=== PATIENT | female | born 1990 | race Caucasian/White ===

== ENCOUNTER 2023-09-24 09:57 | Day surgery (SDC) | payer BC, SELFPAY ==
--- NOTE | 2023-09-24 | OP_ITS ---
OPERATION DATE: 09/24/2023 PREOPERATIVE DIAGNOSIS: Enlarging painful epidermal cyst posterior neck. POSTOPERATIVE DIAGNOSIS: Enlarging painful epidermal cyst posterior neck. PROCEDURE: Excisional biopsy epidermal cyst posterior neck. SURGEON: Connor Barcenas M.D. ANESTHESIA: Local with 1% lidocaine with epinephrine. ESTIMATED BLOOD LOSS: Less than 1 mL. INDICATIONS AND CONSENT: Patient is a 33-year-old female with history of enlarging epidermal cyst of the left posterior neck that has been increasing in size and has had a previous episode of infection with drainage. Indications, risks, benefits, alternatives of proceeding with excisional biopsy under local anesthesia were explained extensively to the patient, including the risks of bleeding, infection, scarring, pain, recurrence, need for further surgery. All of her questions were answered. Informed consent was obtained. PROCEDURE: Patient brought to the operating room, placed in the right lateral decubitus position. She was prepped and draped in the usual sterile fashion. The area was anesthetized with 1% lidocaine with epinephrine. It was excised in elliptical fashion down through subcutaneous tissue. Total length was approximately 1 cm. There was noted to be a ruptured epidermal cyst with chronic inflammation. No abscess. This was excised and debrided and sent off to pathology. The wound was irrigated. There was good hemostasis. Incision was then closed with 3-0 nylon mattress sutures and 4-0 nylon simple sutures. There was good hemostasis. Patient tolerated procedure well and was discharged home in good condition, is to follow up in 10 days for suture removal. She is to call sooner with any problems or questions. CC: Patient?s family physician, Dr. Morro OJEDA
[2023-09-24] MEDS: LIDOCAINE HCL 1%-EPINEPHRINE 1:100,000 10 ML MDV 3 ML INJ (11:51)
[2023-09-24 11:52] VITALS: BP 121/63; PULSE 69; PULSE 74; RESP 17; RESP 18; O2SAT 98; O2SAT 99
[2023-09-24 11:53] VITALS: BP 101/83
--- OUTSIDE RECORDS SUMMARY | 2023-10-08 01:54 | XMS_ITS | CCD ---
Author Name Unknown Address [address] [place] [address] Organization [facility] Care Team Providers Care Pull Worker Name Role Phone Claudia Johnson Unavailable Melanie Hooker Primary Care Physician GINNY, DR ASHLEY Wilkes Consulting Unavailable GINNY, DR ASHLEY Wilkes Attending Unavailable WEST, DR ASHLEY Wilkes Admitting Unavailable KING, DR NAVARRO Primary Care Unavailable WEST, DR ASHLEY Wilkes Attending Unavailable WEST, DR ASHLEY Wilkes Admitting Unavailable WEST, DR ASHLEY Wilkes Consulting Unavailable KING, DR NAVARRO Primary Care Unavailable YOAV, DR DILL Admitting Unavailable KING, DR NAVARRO Primary Care Unavailable YOAV, DR DILL Consulting Unavailable YOAV, DR DILL Attending Unavailable BECKMAN, NALLELY Consulting Unavailable KING, DR NAVARRO Primary Care Unavailable YOAV, DR DILL Attending Unavailable YOAV, DR DILL Admitting Unavailable YOAV, DR DILL Consulting Unavailable AGUBOSIM, CHARITY Consulting Unavailable ROBERTO SUTHERLAND Consulting Unavailable YOAV, DR DILL Admitting Unavailable KING, DR NAVARRO Primary Care Unavailable YOAV, DR DILL Consulting Unavailable YOAV, DR DILL Attending Unavailable YOAV, DR DILL Consulting Unavailable KING, DR NAVARRO Primary Care Unavailable YOAV, DR DILL Attending Unavailable YOAV, DR DILL Admitting Unavailable KERRY MELVIN Attending Unavailable KERRY MELVIN Admitting Unavailable KING, DR NAVARRO Primary Care Unavailable GINNY, DR ASHLEY Wilkes Consulting Unavailable KERRY MELVIN Consulting Unavailable NILArline Reed Attending Unavailable NILLArline Attending Unavailable NILLARLINE Attending Unavailable NILLARLINE Attending Unavailable Allergies Allergy Classification Reported Allergen(s) Allergy Type Date of Onset Reaction(s) Facility (1 source) No Known Medication Allergies; Translations: [No Known Medication Allergies] Propensity to adverse reactions (disorder) [facility] Repository Medications Current Medications Medication Drug Class(es) Dates Sig (Normalized) Sig (Original) sulfamethoxazole 800 mg / trimethoprim 160 mg oral tablet (1 source) Dihydrofolate Reductase Inhibitor Antibacterial, Sulfonamide Antimicrobial Start: 09-02-2023 End: 09-07-2023 Bactrim D.S. 800 mg-160 mg Tab 1 tab(s), Oral, BID for 5 day(s), 10 tab(s), Refill(s) 0, [employer] #72, 172.7, cm, 09/02/23 14:11:00 EST, Height/Length Dosing, 62.7, kg, 09/02/23 14:11:00 EST, Weight Dosing Start Date: 09/02/23 Stop Date: 09/07/23 Status: Ordered Problems Active Problems Problem Classification Problem Date Documented Da te Episodic/Chronic Anxiety disorders (3 sources) Anxiety; Translations: [Anxiety disorder, unspecified] Onset: 05-28-2022 07-12-2022 Chronic Other skin disorders (2 sources) Acne vulgaris 07-12-2022 Episodic Other skin disorders (1 source) Epidermoid cyst; Translations: [Epidermal cyst] Onset: 09-02-2023 Episodic Other skin disorders (1 source) Epidermoid cyst of skin 07-27-2022 Episodic Other skin disorders (1 source) Epidermoid cyst of skin of neck 07-27-2022 Episodic Residual codes; unclassified (2 sources) Insomnia 07-12-2022 Episodic Substance-related disorders (1 source) Nicotine dependence, other tobacco product, uncomplicated; Translations: [NICOTINE DEPEND OTH TOB PROD UNCOMP] Onset: 05-28-2022 Chronic Unclassified (2 sources) Body mass index 20-24 - normal 07-23-2022 Unclassified (1 source) CONTACT W/AND (SUSP) EXPOS COVID-19; Translations: [CONTACT W/AND (SUSP) EXPOS COVID-19] Onset: 05-25-2022 Past or Other Problems Problem Classification Problem Date Documented Date Episodic/Chronic Cancer of cervix (5 sources) 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); Translations: [HGSIL ON CYTOLOGIC SMEAR OF CERVIX] Onset: 05-23-2022 Episodic Immunizations and screening for infectious disease (2 sources) Contact with and (suspected) exposure to other viral communicable diseases; Translations: [Encounter for screening for human papillomavirus (HPV)] Onset: 10-26-2021 Resolved: 10-26-2021 Episodic Other aftercare (5 sources) Encounter for follow-up examination after completed treatment for conditions other than malignant neoplasm; Translations: [ENC F/U EX AFTR CMPL TX NOT MAL HERMES] Onset: 05-29-2022 Episodic Other screening for suspected conditions (not mental disorders or infectious disease) (4 sources) Encounter for screening for malignant neoplasm of cervix; Translations: [ENC SCREENING MALIG NEOPLASM CERV] Onset: 04-19-2022 Episodic Ovarian cyst (1 source) Unspecified ovarian cyst, left side; Translations: [UNSPECIFIED OVARIAN CYST LEFT SIDE] Onset: 05-28-2022 Episodic Skin and subcutaneous tissue infections (4 sources) Cellulitis, unspecified; Translations: [CELLULITIS UNSPECIFIED] Onset: 05-29-2022 Episodic Viral infection (1 source) COVID-19 Onset: 10-26-2021 Resolved: 10-26-2021 Results Test Name Value Interpretation Reference Range Facil ity Pathology Noteon 10-01-2023 Pathology Note [id number]. 00TIFF Normal [facility] Operative Reporton Operative Report [id number]#[id number] Normal [facility] SURGICAL PATH REPORTon 09-26 SURGICAL PATH REPORT [facility] Department of Pathology [address] [place] [id number] Name: BJORN BOATENG : 1990 [facility] [id number] Number: [facility] Admit 33 years Attending ARLINE ARRINGTON Age: Provider: Ordering ARLINE ARRINGTON Provider: Consulti Surgical Pathology Report ng: ACCESSION: COLLECTED DATE/TIME: RECEIVED DATE/TIME: PATHOLOGIST: [id number] 09/24/2023 12:01 EST 09/25/2023 13:27 EST TERRIE KOEHLER, [facility] Final Diagnosis Report for [facility] [place] EPIDERMAL CYST, POSTERIOR NECK; EXCISION: - BENIGN SKIN WITH CHRONIC INFLAMMATION, GIANT CELLS AND FOCAL CHANGES SUGGESTIVE OF INFLAMED EPIDERMAL INCLUSION CYST. MATI FALCON PATHOLOGIST (Electronic Signature) Date Verified 09/26/2023 LL Clinical Data PRE-OP DIAGNOSIS: Not specified POST-OP DIAGNOSIS: Epidermal cyst PROCEDURES: Excision of epidermal cyst SPECIMEN: Epidermal cyst, posterior neck VISIT #[id number] / Surgical outpatient Gross Description Labeled epidermal cyst, posterior neck. Received in formalin are two ovoid segments of castro pink soft tissue. These measure in aggregate 1.4 x 0.8 x 0.5 cm. The larger segment is bisected transversely. The specimen is entirely submitted in one cassette. MP/tahir 09/25/2023 Tissue pathology report for: [facility], [address] [place], [place] [id number]; ____ Print 09/26/2023 16:04 EST Number: Date/Time: [facility] Department of Pathology [address] [place], [place] [id number] Name: BJORN BOATENG : 1990 [facility] [id number] Number: Gender Female [facility] : n: Admit 33 years Attending ARLINE ARRINGTON Age: Provider: Ordering ARLINE ARRINGTON Provider: Consulti Surgical Pathology Report ng: ACCESSION: COLLECTED DATE/TIME: RECEIVED DATE/TIME: PATHOLOGIST: [id number] 09/24/2023 12:01 EST 09/25/2023 13:27 EST TERRIE KOEHLER, MATI Gross Description PATHOLOGY SERVICES PROVIDED BY [employer], [employer] (CLIA #[id number]) in cooperation with [facility] at [address] [place] [address] (CLIA #[id number]) Microscopic Diagnosis The final diagnosis is based on a microscopic exam of insurance claim representative sections. Codes CPT CODE: 11286 ____ Print 09/26/2023 16:04 EST Number: Date/Time: Normal [facility] Comment on above: Performed By: #### [id number] #### [facility] Laboratory Services [address] [id number] Earth [employer] Teacher: Mike Taylor MD Consent for Procedure/Surger yon 09-03-2023 Consent for Procedure/Surgery [id number] [facility] Insurance Correspondenceon 1 11-03-2022 Insurance Correspondence [id number] [facility] General Surgery Office/Clini c Noteon 09-02-2023 General Surgery Office/Clinic Note Chief Complaint re-evaluate cysts HPI Staff Presents to re-evaluate left posterior neck and upper back cysts x 2. Last evaluation 07/2022; excision planned but not scheduled. Reports back cysts are unchanged. Over the past 3-4 weeks, neck cyst has been increasing in soreness and size. Denies drainage. Not on ATB. History of Present Illness 33 yo female presents for reevaluation of posterior neck cyst; patient seen 1 year ago for posterior neck and upper back cysts; she declined to schedule surgery at that time; no reports 1 month h/o enlargement of posterior neck cyst with pain, no drainage; denies injury to area, no antibiotic therapy. Review of Systems PHQ Score Initial Depression Screen Score: 0 SCORE ROS - Provider Constitutional: no fever, no sweats, no weight loss. Eyes: no glasses, no blurred vision, no visual loss. ENMT: no dentures, no hoarseness, no swallowing difficulties, no hearing loss, no ear infection(s), no nose bleeds. Cardiovascular: normal blood pressure, no chest pain, regular heartbeat, no heart murmur. Respiratory: no shortness of breath, no cough, no asthma, no wheezing. Gastrointestinal: no nausea, no vomiting, no diarrhea, no constipation, no blood in stool, no change in bowel habits, no abdominal pain, no hepatitis. Genitourinary: no kidney stones, no urine infection, no dysuria. Musculoskeletal: no pain, no weakness. Skin: no changing moles, no rash, yes skin lumps. Neurologic: no seizures, no epilepsy, no headache. Psychiatric: no emotional or psychiatric problem. Heme/Lymph: no bleeding problems, no anemia, no blood clots, no transfusions. Allergy/Immunologic: no swollen lymph nodes/glands, no IV drug abuse. Other: Additional ROS info: Except as noted in the above Review of Systems and in the History of Present Illness, all other systems have been reviewed and are negative or noncontributory. Physical Exam Vitals & Measurements HR: 76(Peripheral) RR: 16 BP: 110/76 HT: 68 in HT: 172.7 cm WT: 62.7 kg WT: 137.94 lb BMI: 21.02 HEENT: normal conjunctiva, sclera clear, no scleral icterus, EOM intact, PERRLA, oral mucosa moist without lesions. Neck: trachea midline, no mass, symmetric, no thyromegaly or nodules, no adenopathy Respiratory: lungs CTA, respirations non labored. Cardiovascular: regular rate and rhythm, no murmur, no pedal edema or varicositie Musculoskeletal: normal gait, digits and nails without infection, nodes, cyanosis, clubbing. Skin: no rashes, no lesions, no ulcers, posterior neck with 2 cm epidermal cyst, sore, no fluctuance or drainage, no open areas, no erythema; small, less than 1 cm cysts upper back, nontender. atric/Neuro: oriented to time, place, person, judgement normal, affect appropriate for age, insight intact, no focal deficits. Tests: , review of old records completed , Discussed surgical options, risks, and possible complications with patient. Assessment/Plan 1. Epidermal cyst of neck (L72.0: Epidermal cyst) inflamed, treat with course of antibiotics; plan excisional biopsy under local anesthesia at [facility], informed consent obtained. Ordered: sulfamethoxazole-trimethoprim, 1 tab(s), Oral, BID for 5 day(s), 10 tab(s), Refill(s) 0, [employer] #72, 172.7, cm, 09/02/23 14:11:00 EST, Height/Length Dosing, 62.7, kg, 09/02/23 14:11:00 EST, Weight Dosing Follow-up No qualifying data available Problem List/Past Medical History Ongoing Acne vulgaris Anxiety BMI 21.0-21.9, adult Epidermal cyst Epidermal cyst of neck Insomnia Historical No qualifying data Procedure/Surgical History LEEP, LEEP, Removal of ovarian cyst. Medications Bactrim D.S. 800 mg-160 mg Tab, 1 tab(s), Oral, BID Allergies No Known Allergies No Known Medication Allergies Social History Alcohol - Denies Alcohol Use, 07/23/2022 Substance Abuse - Denies Substance Abuse, 07/23/2022 Tobacco Former smoker, quit more than 30 days ago Tobacco Use:. Smokeless tobacco user within last 30 days Smokeless Tobacco Use:. Cigarettes, Vaping, 0.5 per day. Started age 16.0 Years. Yes, 09/02/2023 Family History Family history is negative Immunizations Vaccine Date Status Comments influenza virus vaccine, inactivated - Not Given Patient Refuses Normal [facility] Comment on above: Result Comment: Elec tronically Signed By: MURPHY KOEHLER, Arline Craft\ravi\Date and Time Signed: 09/02/23 19:23 EST CBC AUTO DIFFon 05-29-2022 BASO # 0.0 103/ul Normal 0.0-0.1 [facility] Comment on above: Performed By: #### C BC #### [facility] [address] [address] [address] Ellie Hagan Basophils/100 WBC (Bld) 0.5 % Normal 0.2-2.0 [facility] Comment on above: Performed By: #### C BC #### [facility] [address] [place], [place] [address] Dr. Ellie Hagan EO # 0.1 103/ul Normal 0.0-0.[address] [facility] Comment on above: Performed By: #### C BC #### [facility] [address] [place] [address] Dr. Ellie Hagan Eosinophils/100 WBC (Bld) 1.7 % Normal 0.9-7.0 [facility] Comment on above: Performed By: #### C BC #### [facility] [address] [place] [address] Dr. Ellie Hagan Erythrocyte distribution wid th (RBC) [Ratio] 11.8 % Normal 11.0-15.0 [facility] Comment on above: Performed By: #### C BC #### [facility] [address] [place] [address] Dr. Ellie Hagan Hematocrit (Bld) [Volume fraction] 36.8 % Normal 3 6.0-48.0 [facility] Comment on above: Performed By: #### C BC #### [facility] [address] [place] [address] Dr. Ellie Hagan Hemoglobin (Bld) [Mass/Vol] 12.8 g/dL Normal 12.0-16. 0 [facility] Comment on above: Performed By: #### C BC #### [facility] [address] [place] [address] Dr. Ellie Hagan IG # 0.10 10e3/ul Critically high 0.00-0.03 [facility] Comment on above: Performed By: #### C BC #### [facility] [address] [place] [address] Dr. Ellie Hagan IG % 1.3 % Critically high 0.0-0.5 [facility] Comment on above: Performed By: #### C BC #### [facility] [address] [place] [address] Dr. Ellie Hagan LYMPH # 2.1 103/ul Normal 1.2-3.[address] [facility] Comment on above: Performed By: #### C BC #### [facility] [address] [place] [address] Dr. Ellie Hagan Lymphocytes/100 WBC (Bld) 28.5 % Normal 20.5-60.0 [facility] Comment on above: Performed By: #### C BC #### [facility] [address] [place] [address] Dr. Ellie Hagan MANUAL DIFF REQ NO Normal [facility] Comment on above: Performed By: #### C BC #### [facility] [address] [place] [address] Dr. Ellie Hagan MCH (RBC) [Entitic mass] 30.8 pg Normal 26.7-34.0 [facility] Comment on above: Performed By: #### C BC #### [facility] [address] [place] [address] Dr. Ellie Hagan MCHC (RBC) [Mass/Vol] 34.8 g/dL Normal 29.9-35.2 [facility] Comment on above: Performed By: #### C BC #### [facility] [address] [place] [address] Dr. Ellie Hagan MCV (RBC) [Entitic vol] 88.5 fL Normal 81.0-99.0 [facility] Comment on above: Performed By: #### C BC #### [facility] [address] [place] [address] Dr. Ellie Hagan MONO # 0.7 103/ul Normal 0.3-0.8 [facility] Comment on above: Performed By: #### C BC #### [facility] [address] [place] [address] Dr. Ellie Hagan Monocytes/100 WBC (Bld) 9.6 % Normal 1.7-12.0 [facility] Comment on above: Performed By: #### C BC #### [facility] [address] [place] [address] Dr. Ellie Hagan NEUT # 4.4 103/ul Normal 1.4-6.[address] [facility] Comment on above: Performed By: #### C BC #### [facility] [address] [place] [address] Dr. Ellie Hagan Neutrophils/100 WBC (Bld) 58.4 % Normal 43.0-75.0 [facility] Comment on above: Performed By: #### C BC #### [facility] [address] [place] [address] Dr. Ellie Hagan Platelet mean volume (Bld) [ Entitic vol] 10.1 fL Normal 9.5-13.5 [facility] pital Comment on above: Performed By: #### C BC #### [facility] [address] [place] [address] Dr. Ellie Hagan PLT 232 103/ul Normal 150-[address] [facility] Comment on above: Performed By: #### C BC #### [facility] [address] [place] [address] Dr. Ellie Hagan RBC 4.16 106/ul Critically low 4.20-5.40 [facility] Comment on above: Performed By: #### C BC #### [facility] [address] [place] [address] Dr. Ellie Hagan WBC 7.5 103/ul Normal 4.0-11.[address] [facility] Comment on above: Performed By: #### C BC #### [facility] [address] [place] [address] Dr. Ellie Hagan US EXT NON VASC LIMITED LTon 05-29-2022 US EXT NON VASC LIMITED LT EXAMINATION: US EXT NON VASC LIMITED LT HISTORY: Cellulitis COMPARISON: No relevant comparison available. FINDINGS: Ultrasound of the left dorsal wrist in the area of redness demonstrates normal skin, subcutaneous fat and muscle. Some vessels are observed which demonstrate normal compressibility. IMPRESSION: Normal ultrasound. No focal abnormality Electronically authenticated by: ASHLEY GROSS Date: 2022-05-29 16:13 Normal [facility] l HCG-BETA SUBUNIT QUANTon hCG,Beta Subunit,Qnt,Serum <1 Normal [facility] Comment on above: Result Comment: Fema le (Non-) 0 - 5 (Postmenopausal) 0 - 8 . Female () Weeks of Gestation 3 6 - 71 4 10 - 750 5 285 - 7876 6 556 - 82353 7 [phone] 8 [phone] -[phone] 9 [phone] -[phone] 10 08010 -865870 12 18042 -[id number] 14 06466 - 96592 15 71890 - 64836 16 5708 - 55796 17 5668 - 47255 18 0802 - 24882 [place] ECLIA methodology Performed By: #### H CGSUB #### [facility] [address] [place] [address] Dr. Ellie Hagan CBC AUTO DIFFon 05-21-2022 BASO # 0.0 103/ul Normal 0.0-0.1 [facility] Comment on above: Performed By: #### C BC #### [facility] [address] [place] [address] Dr. Ellie Hagan Basophils/100 WBC (Bld) 0.7 % Normal 0.2-2.0 [facility] Comment on above: Performed By: #### C BC #### [facility] [address] [place] [address] Dr. Ellie Hagan EO # 0.1 103/ul Normal 0.0-0.7 [facility] Comment on above: Performed By: #### C BC #### [facility] [address] [place] [address] Dr. Elile Hagan Eosinophils/100 WBC (Bld) 1.4 % Normal 0.9-7.0 [facility] Comment on above: Performed By: #### C BC #### [facility] [address] [place] [address] Dr. Ellie Hagan Erythrocyte distribution wid th (RBC) [Ratio] 11.9 % Normal 11.0-15.0 [facility] Comment on above: Performed By: #### C BC #### [facility] [address] [place] [address] Dr. Ellie Hagan Hematocrit (Bld) [Volume fraction] 36.3 % Normal 3 6.0-48.0 [facility] Comment on above: Performed By: #### C BC #### [facility] [address] [place] [address] Dr. Ellie Hagan Hemoglobin (Bld) [Mass/Vol] 12.7 g/dL Normal 12.0-16. 0 [facility] Comment on above: Performed By: #### C BC #### [facility] [address] [place] [address] Dr. Ellie Hagan IG # 0.07 10e3/ul Critically high 0.00-0.03 [facility] Comment on above: Performed By: #### C BC #### [facility] [address] [address] [address] Ellie Hagan IG % 1.3 % Critically high 0.0-0.5 [facility] Comment on above: Performed By: #### C BC #### [facility] [address] [place] [address] Dr. Ellie Hagan LYMPH # 1.8 103/ul Normal 1.2-3.8 [facility] Comment on above: Performed By: #### C BC #### [facility] [address] [place] [address] Dr. Ellie Hagan Lymphocytes/100 WBC (Bld) 32.0 % Normal 20.5-60.0 [facility] Comment on above: Performed By: #### C BC #### [facility] [address] [place] [address] Dr. Ellie Hagan MANUAL DIFF REQ NO Normal [facility] Comment on above: Performed By: #### C BC #### [facility] [address] [place] [address] Dr. Ellie Hagan MCH (RBC) [Entitic mass] 31.3 pg Normal 26.7-34.0 [facility] Comment on above: Performed By: #### C BC #### [facility] [address] [place] [address] Dr. Ellie Hagan MCHC (RBC) [Mass/Vol] 35.0 g/dL Normal 29.9-35.2 [facility] Comment on above: Performed By: #### C BC #### [facility] [address] [place] [address] Dr. Ellie Hagan MCV (RBC) [Entitic vol] 89.4 fL Normal 81.0-99.0 [facility] Comment on above: Performed By: #### C BC #### [facility] [address] [place] [address] Dr. Ellie Hagan MONO # 0.5 103/ul Normal 0.3-0.8 [facility] Comment on above: Performed By: #### C BC #### [facility] [address] [place] [address] Dr. Ellie Hagan Monocytes/100 WBC (Bld) 8.9 % Normal 1.7-12.0 [facility] Comment on above: Performed By: #### C BC #### [facility] [address] [place] [address] Dr. Ellie Hagan NEUT # 3.1 103/ul Normal 1.4-6.[address] [facility] Comment on above: Performed By: #### C BC #### [facility] [address] [place] [address] Dr. Ellie Hagan Neutrophils/100 WBC (Bld) 55.7 % Normal 43.0-75.0 [facility] Comment on above: Performed By: #### C BC #### [facility] [address] [place] [address] Dr. Ellie Hagan Platelet mean volume (Bld) [ Entitic vol] 10.4 fL Normal 9.5-13.5 [facility] Comment on above: Performed By: #### C BC #### [facility] [address] [place] [address] Dr. Ellie Hagan PLT 212 103/ul Normal 150-[address] [facility] Comment on above: Performed By: #### C BC #### [facility] [address] [place] [address] Dr. Ellie Hagan RBC 4.06 106/ul Critically low 4.20-5.40 [facility] Comment on above: Performed By: #### C BC #### [facility] [facility] [address] [place] [address] Dr. Ellie Hagan WBC 5.6 103/ul Normal 4.0-11.[address] [facility] Comment on above: Performed By: #### C BC #### [facility] [address] [place] [address] Dr. Ellie Hagan [facility] SARS-CoV-2 (COVID-19) RNA SARA+probe Ql (Unsp spec) Not detected Normal NOT DETECTED The [facility] Comment on above: Result Comment: This test is not yet approved or cleared by the [place] FDA. When there are no FDA-approved or cleared tests available, and other criteria are met, FDA can make tests available under an emergency access mechanism called an Emergency Use Authorization (EUA). The EUA for this test is supported by the Refining Supervisor of Health and Human Service's (HHS's) declaration that circumstances exist to justify the emergency use of in vitro diagnostics for the detection and/or diagnosis of the virus that causes COVID-19. This EUA will remain in effect (meaning this test can be used) for the duration of the COVID-19 declaration justifying emergency of IVDs, unless it is terminated or revoked by FDA (after which the test may no longer be used). When diagnostic testing is negative, the possibility of a false negative should be considered in the context of a patient's recent exposures and the presence of clinical signs and symptoms consistent with SARS-CoV-2. Performed By: #### C VDTBH #### [facility] [address] [place] [address] Dr. Ellie Hagan PAP ACOG PANEL 2: 30 to 65on 04-25-2022 . . Normal [facility] Comment on above: Result Comment: Perf ormed at: WB Performed By: #### [id number] #### [facility] [address] [place], [place] [id number] Dr. Ellie Hagan Age Gdln ACOG Testing 30-65 Normal [facility] Comment on above: Performed By: #### [id number] #### [facility] [address] [place], [place] [id number] Dr. Ellie Hagan DIAGNOSIS: Comment Abnormal [facility] Comment on above: Result Comment: EPIT HELIAL CELL ABNORMALITY. HIGH-GRADE SQUAMOUS INTRAEPITHELIAL LESION (HSIL). Performed at: WB Performed By: #### [id number] #### [facility] [address] [place] [address] Dr. Ellie Hagan Electronically signed by: Comment Normal [facility] Comment on above: Result Comment: Gayla Hernandez MD, Pathologist Performed at: WB Performed By: #### [id number] #### [facility] [address] [place] [address] Dr. Ellie Hagan HPV Aptima Positive Abnormal Negative [facility] Comment on above: Result Comment: This nucleic acid amplification test detects fourteen high-risk HPV types (16,18,31,33,35,39,45,51,52,56,58,59,66,68) without differentiation. Performed at: =G Performed By: #### [id number] #### [facility] [address] [place] [address] Dr. Ellie Hagan Methodology: Comment Normal [facility] Comment on above: Result Comment: This liquid based ThinPrep(R) pap test was screened with the use of an image guided system. Performed at: WB Performed By: #### [id number] #### [facility] [address] [place] [address] Dr. Ellie Hagan Note: Comment Normal [facility] Comment on above: Result Comment: The Pap smear is a screening test designed to aid in the detection of premalignant and malignant conditions of the uterine cervix. It is not a diagnostic procedure and should not be used as the sole means of detecting cervical cancer. Both false-positive and false-negative reports do occur. . Performed at: WB Performed By: #### [id number] #### [facility] [address] [place] [address] Dr. Ellie Hagan Pathologist Provided ICD10 Comment Normal [facility] Comment on above: Result Comment: [id number]. [id number] Performed at: WB Performed By: #### [id number] #### [facility] [address] [place] [address] Dr. Ellie Hagan Performed by: Comment Normal [facility] Comment on above: Result Comment: Fortunato Patel, Head Of Merchandise Buying (ASCP) Performed at: WB Performed By: #### [id number] #### [facility] [address] [address] [address] Ellie Hagan Recommendation: Comment Abnormal [facility] Comment on above: Result Comment: Sugg est colposcopy and biopsy if indicated. Performed at: WB Performed By: #### [id number] #### [facility] [address] [place], [place] [address] Dr. Ellie Hagan Specimen adequacy: Comment Normal The [facility] Comment on above: Result Comment: Sati sfactory for evaluation. Endocervical and/or squamous metaplastic cells (endocervical component) are present. Performed at: WB Performed By: #### [id number] #### [facility] [address] [address] [address] Ellie Hagan [employer] Quick Testingon 2021 Result Positive [facility] [employer] Other Vital Signs Date Time Vital Sign Value Performing Clinician Facility 09-02-2023 14:04-0500 Blood Pressure Location [employer] [facility] 09-02-2023 14:04-0500 Diastolic blood pressure 76 mm[Hg] Arline NILL [facility] 09-02-2023 14:04-0500 Heart rate 76 /min Arline NILL [facility] 09-02-2023 14:04-0500 Respiratory rate 16 /min Arline NILL [facility] 09-02-2023 14:04-0500 Systolic blood pressure 110 mm[Hg] Arline NILL [facility] 07-23-2022 15:23-0400 Blood Pressure Location Arline QingKeL [facility] 07-23-2022 15:23-0400 Diastolic blood pressure 76 mm[Hg] [facility] 07-23-2022 15:23-0400 Heart rate 68 /min Arline NILL [facility] 07-23-2022 15:23-0400 Respiratory rate 16 /min Arline NILL [facility] 07-23-2022 15:23-0400 Systolic blood pressure 116 mm[Hg] Arline NILL [facility] 10-26-2021 14:30-0500 Body height 172.72 cm Claudia Ginty Other [employer] Other 10-26-2021 14:30-0500 Body mass index (BMI) [Ratio] 20.52 kg/m2 Claudia Ginty Other [employer] Other 10-26-2021 14:30-0500 Body temperature 99 [degF] Claudia Ginty Other [employer] Other 10-26-2021 14:30-0500 Body weight 61.24 kg Claudia Ginty Other [employer] Other 10-26-2021 14:30-0500 Respiratory rate 18 /min Claudia Ginty Other [employer] Other 10-26-2021 14:30-0500 SaO2% (BldA) [Mass fraction] 99 % Claudia Ginty Other [employer] Other Encounters Encounter Date Encounter Type Care Provider Facility Start: 10-07-2023 ambulatory Arline R NILL Facility : [facility] Start: 09-25-2023 End: 09-26-2023 ambulatory ARLINE R NILL Facility:[facility] Start: 09-24-2023 End: 09-25-2023 ambulatory ARLINE R NILL Facility:[facility] Start: 09-02-2023 End: 09-03-2023 [facility] Start: 09-02-2023 End: 09-02-2023 Patient encounter procedure Arline SANTIAGOL [facility] [place] Start: 09-01-2023 ambulatory Arline ARRINGTON Facility: [facility] Start: 12-06-[address] ASHLEY GROSS Facilit y:[facility] Start: 07-23-2022 End: 07-23-2022 Patient encounter procedure Arline SANTIAGODerek [facility] Start: 05-29-2022 End: 05-30-2022 ambulatory KERRY MELVIN Facility:[facility] Start: 05-25-2022 Encounter for preprocedural laboratory examination DR ANIYAH JACKSON [facility] Start: 05-23-2022 End: 05-23-[address] MELANIE HOOKER Facility:[facility] Start: 05-21-2022 End: 05-22-[address] ANIYAH JACKSON Facility:[facility] Start: 05-21-2022 End: 05-22-2022 Encounter for preprocedural laboratory examination DR ANIYAH JACKSON Facility:[facility] Start: 04-19-2022 End: 04-19-[address] ANIYAH JACKSON Facility:[facility] Start: 03-21-2022 End: 06-30-[address] ASHLEY GROSS Facility:[facility] Start: 10-26-2021 End: 10-26-2021 ambulatory Claudia Johnson Other [employer] Other Start: 10-26-2021 Office outpatient vi sit 15 minutes Claudia Johnson [facility] Procedures Date Procedure Procedure Detail Performing Clinician Loop electrosurgical excision procedure Arline ARRINGTON Removal of ovarian cyst Liam bañuelos NILL Immunizations Immunization Date Immunization Notes Care Provider Fa cility NEGATED: Highlighted row has not occurred!09-02-2023 influenza virus vaccine, unspecified formulation Arline SANTIAGODerek [facility] [place] Payers Date Payer Category Payer Unknown [id number] 2.16.84 [id number] 1989 Unknown [id number] 2.16.84 [id number] 1989 Unknown [id number] 2.16.84 [id number] 1989 Unknown [id number] 2.16.84 [id number] 1989 Unknown [id number] 2.16.84 [id number] 1989 Unknown [id number] 2.16.84 [id number] 1989 Unknown [id number] 2.16.84 [id number] 1989 Unknown [id number] 2.16.8 [id number] 1989 Unknown [id number] 2.16.8 [id number] 1960 [facility] [id number] 1960 Self-pay Social History Date Type Detail Facility Sex Assigned At [facility] [employer] Other Start: 07-23-2022 End: 09-02-2023 Tobacco smoking status Ex-smoker (finding) [facility] Tobacco smoking status Smokeless tobacco user within last 30 days [facility] [place] Functional Status Date Assessment Result Facility 09-02-2023 Functional Status N/A [facility] [place] 07-23-2022 Functional Status N/A [facility] Clinical Note 05-23-2022 Note Date & Type Note Facility 05-23-2022 Note OPERATIVE NOTE OPERATION DATE: 05/23/2022 PROCEDURE: LEEP Procedure. PREOPERATIVE DIAGNOSIS: Dysplasia. POSTOPERATIVE DIAGNOSIS: Dysplasia. ANESTHESIA: General. SURGEON: Aniyah Jackson D.O. LUMBER TRIMMER: None. SPECIMEN: Ectocervical tissue. FINDINGS: Cervical dysplasia at the 6, 8 and 2 o'clock positions. PROCEDURE: Patient was taken back to the Operating Room where she was given general anesthesia without difficulty. She was then placed in the dorsal lithotomy position. She was then prepped and draped in the normal sterile fashion. A weighted speculum was placed into the patient's vagina. The anterior lip of the cervix was identified and grasped with a single-tooth tenaculum. The patient's cervix was then copiously irrigated using vinegar. Then, a Lugol Solution was also placed onto the patient's cervix which demonstrated increased uptake of the Lugol solution at the 6 o'clock, 8 o'clock and 2 o'clock positions. At that time, the LEEP portion of the procedure was performed, including the 6 o'clock, 8 o'clock and 2 o'clock positions. The ectocervix was sent out to Pathology. The patient's cervix was then coagulated using suction cautery. Excellent hemostasis was assured. Monsel Solution was then placed onto the patient's cervix to help maintain adequate hemostasis. All instruments were removed from the patient's vagina. The anterior lip of the cervix demonstrated excellent hemostasis. The patient tolerated the procedure well. Sponge, lap, and needle counts were correct x 2. The patient was taken to Recovery Room in stable condition. [facility] Evaluation note 10-26-2021 Note Date & Type Note Facility 10-26-2021 Evaluation note Encounter Date Diagnosis Assessment Notes Oct, Contact with and (suspected) exposure to other viral communicable diseases (ICD-10 - Z20.828) Oct, COVID-19 (ICD-10 - U07.1) Rapid COVID test performed in office today. Advised patient that test was positive.Instru cted patient to isolate per CDC guidelines for 10 days from symptom onset. May return to work/activities outside home after isolation period as long as symptoms are improving and has been afebrile for 24 hours without use of antipyretic. Advised patient that health dept. will be in contact as results are reported to them. Advised patient that treatment of COVID is with viral supportive care, OTC cold medications as directed, Tylenol/Motrin as needed for body aches/fever. Increase fluids and rest. Encouraged use of cool mist humidifier. Follow-up with PCP to advise of positive result and further management. Immediate eval for SOB, difficulty, chest pain, fevers that do not break with antipyretic or any other concerning symptoms as reviewed on patient education handout. Patient verbalizes understanding and is agreeable to treatment plan. Patient left in stable condition Oct, Other Additional time spent conducting pre-visit phone call, screening for symptoms, instructions on social distancing, application and removal of PPE, and cleaning of examination room, equipment and supplies was preformed. Patient education given for testing methodology and results. Patient care instructions given in writting by [facility] Care At Home document [employer] Other Evaluation + Plan note Note Date & Type Note Facility Evaluation + Plan note No data available for this section [facility] Discharge instructions Note Date & Type Note Facility Hospital Discharge instructions No data available for this section [facility] Progress note Note Date & Type Note Facility Progress note No data available for this section [facility] [place] Summary Purpose Family History No Family History Records Found No data available for this section No Family History Records FoundNo Family History Records Found Advance Directives No Advanced Directives Records FoundNo Advanced Directives Records FoundNo Advanced Directives Records Found Additional Source Comments REASON FOR VISIT (unrecogniz ed section and content) #19 BLACK TRAVERSE, +AT HOME , COUGH, EAR PAIN, SORE THROAT, BACK PAIN, H/A, FEVER Patient Care team informatio n (unrecognized section and content) Personnel Name: Melanie Hooker MD Address: Address: [address] [place] [address] Personnel Name: Melanie Hooker MD Address: Address: [address] [place] [address]- INFORMATION SOURCE (unrecogn ized section and content) DATE CREATED AUTHOR 12/07/2022 [facility] DATE CREATED AUTHOR AUTHOR'S ORGANIZ ATION 10/03/2023 [facility] DATE CREATED AUTHOR AUTHOR'S ORGANALLYN ATION 10/04/[address] [facility] FOR RECORDS PERTAINING TO PATIENTS WHO ARE OR HAVE BEEN ENROLLED IN A CHEMICAL DEPENDENCY/SUBSTANCEABUSE PROGRAM, SOME INFORMATION MAY BE OMITTED. This clinical summary was aggregated from multiple sources. Caution should be exercised in using it in the provision of clinical care. This summary normalizes information from multiple sources, and as a consequence, information in this document may materially change the coding, format and clinical context of patient data. In addition, data may be omitted in some cases. CLINICAL DECISIONS SHOULD BE BASED ON THE PRIMARY CLINICAL RECORDS. [facility]. provides no warranty or guarantee of the accuracy or completeness of information in this document.
== END 2023-09-24 12:21 | disposition home or self-care (01) ==
PROVIDERS: PCP Family Medicine; Visit Provider Surgery
PROC: (CPT 11421; principal; 2023-09-24 10:35)
DX: L72.0 Epidermal cyst (principal); F41.9 Anxiety disorder, unspecified; Z87.891 Personal history of nicotine dependence
CPT/HCPCS: 11421; 88304

== ENCOUNTER 2023-09-25 08:56 | Outpatient (OUT) | payer SELFPAY | END 2023-09-25 08:57 | disposition home or self-care (01) | LOC: PST 08:56 | PROVIDERS: Visit Provider Surgery | DX: Z01.818 Encounter for other preprocedural examination (principal); L72.0 Epidermal cyst ==

== ENCOUNTER 2025-07-06 09:50 | Emergency (ER) | payer BC, SELFPAY ==
[2025-07-06 09:58] VITALS: BP 111/67; PULSE 97; TEMP 36.9; O2SAT 100; BMI 21.9
--- OUTSIDE RECORDS SUMMARY | 2025-07-06 10:03 | XMS_ITS | Clinical Summary ---
Author Organization [facility] Address [address] [place] [address] Care Team Providers Care Director Internal Audit Name Role Phone Unavailable Primary Care Provider Unavailabl e Social History Tobacco Use Types Packs/Day Years Used Date Smoking Tobacco: Never Assessed Comments Unknown Sex and Gender Information Value Date Recorded Sex Assigned at Not on file Legal Sex Female 11:47 PM EDT Gender Identity Not on file Sexual Orientation Not on file Plan of Treatment Not on file
--- NOTE | 2025-07-06 10:09 | CT_ITS ---
The [address] [address] Patient Name: BJORN BOATENG MRN: [id number] date: 1990 Sex: F Assigned Patient Location: ER Current Patient Location: ER Accession/Order Number: [id number] Exam Date: 07/06/2025 10:36 Report Date: 07/06/2025 11:20 At the request of: ARIC MCNEILL MD Procedure: CT abdomen pelvis w con CT ABDOMEN AND PELVIS WITH CONTRAST COMPARISON: None CLINICAL DATA: Right lower quadrant pain since last night. Spiral images were obtained through the abdomen and pelvis following 100 mL of Omnipaque 300. This CT exam was performed using one or more following dose reduction techniques: Automated exposure control, adjustment of the mA and/or kV according to patient size, or use of iterative reconstruction technique. Limited cuts through the lung bases show no contributory findings. No calcified gallstones are identified. There are tiny left hepatic hypodensities which may be cysts. The spleen, pancreas and adrenal glands show no acute findings. There are symmetric renal nephrograms, without hydronephrosis. Suspected tiny renal cysts are seen on the right. The abdominal aorta is normal caliber. There are no enlarged lymph nodes. No ascites is seen. There is a small umbilical hernia containing fat. The small bowel bowel loops are not distended. There is air and stool in the ascending and transverse colon. The descending colon is under distended with apparent wall thickening. Slight thoracolumbar levoscoliotic curvature is noted. Images through the pelvis show no dilated small bowel. There is stool at the cecum. Most of the sigmoid colon is decompressed. There is no diverticular disease. The appendix measures approximately 7 mm in diameter and there is no surrounding inflammation to suggest appendicitis. There is a multiloculated cystic or adjacent cysts within the left pelvis that extends to the posterior cul-de-sac. The entire area measures approximately 10 cm in size. This probably originates from the left ovary. A small thick-walled cystic structure at the right ovary may be an involuting corpus luteum of menstruation. The urinary bladder is not well-distended however no obvious abnormalities are seen. There is no ascites. CT/CT abdomen pelvis w con IMPRESSION: PROBABLE TINY HEPATIC AND RIGHT RENAL CYSTS. NO BOWEL OR URINARY TRACT OBSTRUCTION. NO SUSPECTED APPENDICITIS. MULTILOCULATED LEFT ADNEXAL CYST(S). ULTRASOUND FOLLOW-UP COULD BE CONSIDERED, WARRANTED. NO OTHER ACUTE FINDINGS. Impression dictated by: Jeny Montalvo M.D. 07/06/2025 11:20 AM Dictation Location: [facility]2sms Electronically authenticated by: [id number] Date: 07/06/2025 11:20
--- NOTE | 2025-07-06 10:11 | ED_ITS ---
HPI HPI - General Adult General Chief complaint: Abdominal Pain Stated complaint: ABDOMINAL PAIN Time Seen by Provider: 07/06/25 10:04 Source: patient Mode of arrival: walk-in Limitations: no limitations History of Present Illness HPI narrative: 35-year-old female presents to the emergency department for abdominal pain. She is complaining pain in the mid abdomen which goes into her right lower quadrant and she is worried about her appendix. It started at 1:00 this morning and it was more severe earlier and it is not as bad now. No trauma or fever. She had a bowel movement yesterday and she has not had any diarrhea. Related Data Previous Rx's ?Medication ?Instructions ?Recorded ibuprofen 800 mg tablet 800 mg PO Q8H PRN pain #20 t abs 07/06/25 Allergies Allergy/AdvReac Type Severity Reaction Status Date / Time No Known Drug Allergies Allergy Verified 07/06/25 09:58 Opioid HPI Opioid Management Most Recent Opioid Data: Last Pain Scale 5 Today, 09:58 Review of Systems ROS Narrative A ten point review of systems is negative except as noted above. PFSH PFS Medical History (Updated 07/06/25 @ 11:31 by Frank Washington MD) Epidermal cyst ?L72.0 - Epidermal cyst (ICD-10) Anxiety ?F41.9 - Anxiety disorder, unspecified (ICD-10) Surgical History (Updated 09/24/23 @ 10:08 by Ana María Jimenez) History of loop electrical excision procedure (LEEP) ?Z98.890 - Other specified postprocedural states (ICD-10) History of ovarian cystectomy ?Z98.890 - Other specified postprocedural states (ICD-10) ?Z87.42 - Personal history of other diseases of the female genital tract (ICD-10) Social History (Updated 09/24/23 @ 10:16 by Ana María Jimenez) Within the past year, how often did you have a drink containing alcohol: monthly or less Smoking status: Former smoker Do you use any of these nicotine containing products: vaping products Non-prescribed substance use: denies use 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 General: The patient appears in no apparent distress. Patient is resting comfortably on cart. Skin: Warm, dry, no pallor noted. There is no rash noted. Head: Normocephalic, atraumatic Eye: Normal conjunctiva, no drainage Ears, Nose, Mouth, and Throat: oral mucosa is moist. Nares patent. Cardiovascular: Regular Rate and Rhythm Respiratory: Patient is in no distress, no accessory muscle use, lungs are clear to auscultation, no wheezing, rales or rhonchi Back: non-tender GI: Soft and nondistended. Tenderness present in the right lower quadrant Musculoskeletal: The patient has no evidence of calf tenderness, no pitting edema, symmetrical pulses noted bilaterally Neurological: A&O, normal speech Psychiatric: Cooperative Constitutional Vital Signs, click to edit/add: Last Vital Signs Temp 98.5 F 07/06/25 09:58 Pulse 97 H 07/06/25 09:58 Resp 18 07/06/25 09:58 BP 111/67 07/06/25 09:58 Pulse Ox 100 07/06/25 09:58 O2 Del Method Room Air 07/06/25 09:58 Course Vital Signs Vital signs: Vital Signs Temperature 98.5 F 07/06/25 09:58 Pulse Rate 97 H 07/06/25 09:58 Respiratory Rate 18 07/06/25 09:58 Blood Pressure 111/67 07/06/25 09:58 Pulse Oximetry 100 07/06/25 09:58 Oxygen Delivery Method Room Air 07/06/25 09:58 Temperature 98.5 F 07/06/25 09:58 Pulse Rate 97 H 07/06/25 09:58 Respiratory Rate 18 07/06/25 09:58 Blood Pressure 111/67 07/06/25 09:58 Pulse Oximetry 100 07/06/25 09:58 Oxygen Delivery Method Room Air 07/06/25 09:58 Medical Decision Making MDM Narrative Medical decision making narrative: There is no evidence of appendicitis. She has a large complex cyst on the left ovary, 10 cm in size. 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 Jackson. Treatment diagnosis and follow-up were discussed with the patient. Differential Diagnosis Differential Diagnosis: Appendicitis, ovarian cyst, UTI, Lab Data Lab results reviewed: Yes I reviewed the patient's lab results Labs: Lab Results 07/06/25 07/06/25 Range/Units 10:00 10:15 WBC 11.5 H (4.0-11.0) 10^3/uL RBC 4.38 (4.20-5.40) 10^6/uL Hgb 13.7 (12.0-16.0) g/dL Hct 38.7 (36.0-48.0) % MCV 88.4 (81.0-99.0) fL MCH 31.3 (26.7-34.0) pg MCHC 35.4 H (29.9-35.2) g/dL RDW 11.7 (11.0-15.0) % Plt Count 220 (150-450) 10^3/uL MPV 10.5 (9.5-13.5) fL Neut % (Auto) 81.6 H (43.0-75.0) % Lymph % (Auto) 9.4 L (20.5-60.0) % Centre % (Auto) 7.7 (1.7-12.0) % Eos % (Auto) 0.3 L (0.9-7.0) % Baso % (Auto) 0.3 (0.2-2.0) % Neut # (Auto) 9.4 H (1.4-6.5) 10^3/uL Lymph # (Auto) 1.1 L (1.2-3.8) 10^3/uL Centre # (Auto) 0.9 H (0.3-0.8) 10^3/uL Eos # (Auto) 0.0 (0.0-0.7) 10^3/uL Baso # (Auto) 0.0 (0.0-0.1) 10^3/uL Abs Immat Gran (auto) 0.08 H (0.00-0.03) 10^3/uL Imm/Tot Granulo (auto) 0.7 H (0.0-0.5) % Sodium 138 (136-145) mmol/L Potassium 3.5 (3.5-5.1) mmol/L Chloride 104 (98-107) mmol/L Carbon Dioxide 27.4 (21.0-32.0) mmol/L Anion Gap 10.1 BUN 11.0 (7.0-18.0) mg/dL Creatinine 0.61 (0.55-1.02) mg/dL Est GFR ( Amer) >60 (>=60 mL/min/1.73m^2) Est GFR (Non-Af Amer) >60 (>=60 mL/min/1.73m^2) BUN/Creatinine Ratio 18.0 Glucose 98 (74-106) mg/dL Calcium 8.9 (8.5-10.1) mg/dL Serum HCG, Qual Negative (NEGATIVE) Urine Color Yellow (YELLOW) Urine Clarity Clear (CLEAR) Urine pH 7.0 (5.0-9.0) Ur Specific [place] 1.020 (1.005-1.025) Urine Protein Negative (NEG/TRACE) mg/dL Urine Glucose (UA) Negative (NEGATIVE) mg/dL Urine Ketones Negative (NEGATIVE) mg/dL Urine Occult Blood Negative (NEGATIVE) Urine Nitrite Negative (NEGATIVE) Urine Bilirubin Negative (NEGATIVE) Urine Urobilinogen 0.2 (0.2-1.0) EU/dL Ur Leukocyte Esterase Negative (NEGATIVE) Urine RBC 0-2 (0-2) #/HPF Urine WBC 2-5 A (NONE SEEN) #/HPF Ur Squamous Epith Cells Rare (NONE/RARE) #/LPF Urine Crystals None seen (None Seen) #/HPF Urine Bacteria Trace A (NONE SEEN) #/HPF Urine Casts None seen (NONE SEEN) #/LPF Urine Mucus Small A (NONE SEEN) Ur Culture Indicated? No Imaging Data CT scan - abdomen: Radiologist's impression: ITS Impressions Abdomen/Pelvis CT 07/06/25 10:09 IMPRESSION: PROBABLE TINY HEPATIC AND RIGHT RENAL CYSTS. NO BOWEL OR URINARY TRACT OBSTRUCTION. NO SUSPECTED APPENDICITIS. MULTILOCULATED LEFT ADNEXAL CYST(S). ULTRASOUND FOLLOW-UP COULD BE CONSIDERED, WARRANTED. NO OTHER ACUTE FINDINGS. Impression dictated by: Jeny Montalvo M.D. 07/06/2025 11:20 AM [facility]ict[facility] Electronically authenticated by: [id number] Y Date: 07/06/2025 11:20 Discharge Plan Discharge Chief Complaint: Abdominal Pain Clinical Impression: Ovarian cyst Patient Disposition: Home, Self-Care Time of Disposition Decision: 11:31 Condition: Good Mode of Transportation: Private Vehicle Prescriptions / Home Meds: New ibuprofen 800 mg tablet 800 mg PO Q8H PRN (Reason: pain) Qty: 20 0RF Print Language: Turkish Instructions: Ovarian Cyst (ED) Referrals: Yobany Hooker MD [Primary Care Provider, Family Practice] - 1 week
--- OUTSIDE RECORDS SUMMARY | 2025-07-06 10:12 | XMS_ITS | CCD ---
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 Name Role Phone Claudia Johnson Unavailable Melanie Hooker Primary Care Physician GINNY, DR ASHLYE Wilkes Consulting Unavailable GINNY, DR ASHLEY Wilkes Attending Unavailable GINNY, DR ASHLEY Wilkes Admitting Unavailable KING, DR NAVARRO Primary Care Unavailable WEST, DR ASHLEY Wilkes Attending Unavailable WEST, DR ASHLEY Wilkes Admitting Unavailable GINNY, DR ASHLEY Wilkes Consulting Unavailable KING, DR [...] Wilkes Consulting Unavailable KERRY MELVIN Consulting Unavailable ARLINE ARRINGTON Attending Unavailable NILLARLINE Attending Unavailable NILL, Arline Craft Attending Unavailable NILL, Arline Craft Attending Unavailable NILLArline Attending Unavailable Allergies Allergy Classification Reported Allergen(s) Allergy Type Date of Onset Reaction(s) Facility (1 source) No Known Medication Allergies; Translations: [No Known Medication Allergies] Propensity to adverse reactions (disorder) [facility] Repository Medications Current Medications Medication Drug Class(es) Dates Sig (Normalized) Sig (Original) sulfamethoxazole 800 mg / trimethoprim 160 mg oral tablet (1 source) Dihydrofolate Reductase Inhibitor Antibacterial, Sulfonamide Antimicrobial Start: 09-02-2023 End: 09-07-2023 Bactrim D.S. 800 mg-160 mg Tab 1 tab(s), Oral, BID for 5 day(s), 10 tab(s), Refill(s) 0, [employer] #72, 172.7, cm, 09/02/23 14:11:00 EST, Height/Length Dosing, 62.7, kg, 09/02/23 14:11:00 EST, Weight Dosing Start Date: 09/02/23 Stop Date: 09/07/23 Status: Ordered Problems Active Problems Problem Classification Problem Date Documented Da te Episodic/Chronic Anxiety disorders (4 sources) Anxiety; Translations: [Anxiety disorder, unspecified] Onset: 05-28-2022 07-12-2022 Chronic Other skin disorders (3 sources) Acne vulgaris 07-12-2022 Episodic Other skin disorders (2 sources) Epidermoid cyst; Translations: [Epidermal cyst] Onset: 09-02-2023 Episodic Other skin disorders (2 sources) Epidermoid cyst of skin 07-27-2022 Episodic Other skin disorders (2 sources) Epidermoid cyst of skin of neck 07-27-2022 Episodic Residual codes; unclassified (3 sources) Insomnia 07-12-2022 Episodic Substance-related disorders (1 source) Nicotine dependence, other tobacco product, uncomplicated; Translations: [NICOTINE DEPEND OTH TOB PROD UNCOMP] Onset: 05-28-2022 Chronic Unclassified (3 sources) Body mass index 20-24 - normal [...] Results Test Name Value Interpretation Reference Range Facility Ambulatory Visit Summaryon 1 12-08-2022 Ambulatory Visit Summary BJORN BOATENG :1990 Visit Date:10/07/2023 Ambulatory Visit Instructions Your Diagnosis Epidermal cyst of neck Your Care Team Attending Physician Kang ARRINGTON MD, Arline Craft Primary Care Physician Kang Hooker MD, Melanie Procedures Performed Excision of cyst (09/24/2023), LEEP, LEEP, Removal of ovarian cyst. Allergies No Known Allergies No Known Medication Allergies Problems Ongoing - Any problem that you are currently receiving treatment for. Acne vulgaris Anxiety BMI 21.0-21.9, adult Epidermal cyst Epidermal cyst of neck Insomnia Patient Survey You may receive a survey via text or e-mail asking about your office visit. Please share your experience with us by completing your survey. We appreciate your feedback and thank you for choosing us for your care. [facility] Ambulatory Visit Summary BJORN BOATENG :1990 Visit Date:10/07/2023 Ambulatory Visit Instructions Your Care Team Attending Physician Kang ARRINGTON MD, Arline Craft Primary Care Physician Kang Hooker MD, Melanie Procedures Performed Excision of cyst (09/24/2023), LEEP, LEEP, Removal of ovarian cyst. Allergies No Known Allergies No Known Medication Allergies Problems Ongoing - Any problem that you are currently receiving treatment for. Acne vulgaris Anxiety BMI 21.0-21.9, adult Epidermal cyst Epidermal cyst of neck Insomnia Patient Survey You may receive a survey via text or e-mail asking about your office visit. Please share your experience with us by completing your survey. We appreciate your feedback and thank you for choosing us for your care. Normal [facility] General Surgery Office/Clini c Noteon 10-07-2023 General Surgery Office/Clinic Note Chief Complaint post operative follow up HPI Staff 13 day post operative follow up post excisional biopsy posterior neck cyst. Denies discomfort, bleeding or drainage. Sutures intact. History of Present Illness 13 days s/p excisional biopsy inflamed epidermal cyst posterior neck; doing well, no drainage, some itching. pathology consistent with epidermal cyst. Review of Systems ROS - Provider Constitutional: no fever, no [...] weakness. Skin: no changing moles, no rash, no skin lumps. Neurologic: no seizures, no epilepsy, [...] and are negative or noncontributory. Physical Exam skin: incision healing well, no drainage, minimal erythema around sutures Assessment/Plan 1. Epidermal cyst of neck (L72.0: Epidermal cyst) doing well, sutures removed; call with problems/questions. Follow-up No qualifying data available Problem List/Past Medical History Ongoing Acne vulgaris Anxiety BMI 21.0-21.9, adult Epidermal cyst Epidermal cyst of neck Insomnia Historical No qualifying data Procedure/Surgical History Excision of cyst (09/24/2023), LEEP, LEEP, Removal of ovarian cyst. Medications No active medications Allergies No Known Allergies No Known Medication [...] inactivated - Not Given Patient Refuses Normal [facility] Comment on above: Result Comment: Elec tronically Signed By: MURPHY KOEHLER, Arline Craft\.br\Date and Time Signed: 10/07/23 15:10 EST Pathology Noteon 10-01-2023 Pathology Note [id number] #1.00TIFF Normal [facility] Operative Reporton Operative Report [id number] #1.00TIFF Normal [facility] SURGICAL PATH REPORTon 09-26 SURGICAL PATH REPORT [facility] Department of Pathology [address] [place] [id number] Name: BJORN BOATENG : 1990 [facility] [id number] Number: Gender Female [facility] : n: Admit 33 years Attending ARLINE ARRINGTON Age: Provider: Ordering ARLINE ARRINGTON Provider: Consulti Surgical Pathology Report ng: ACCESSION: COLLECTED DATE/TIME: RECEIVED DATE/TIME: PATHOLOGIST: [id number] 09/24/2023 12:01 EST 09/25/2023 13:27 EST TERRIE KOEHLER, [facility] Final Diagnosis Report for [facility] [place] [place] EPIDERMAL CYST, POSTERIOR NECK; EXCISION: - BENIGN SKIN WITH CHRONIC INFLAMMATION, GIANT CELLS AND FOCAL CHANGES SUGGESTIVE OF INFLAMED EPIDERMAL INCLUSION CYST. MATI FALCON PATHOLOGIST (Electronic Signature) Date Verified 09/26/2023 LL Clinical Data PRE-OP DIAGNOSIS: Not specified POST-OP DIAGNOSIS: Epidermal cyst PROCEDURES: Excision of epidermal cyst SPECIMEN: Epidermal cyst, posterior neck VISIT #[id number] / Surgical outpatient Gross Description Labeled epidermal cyst, posterior neck. Received in formalin are two ovoid segments of castro pink soft tissue. These measure in aggregate 1.4 x 0.8 x 0.5 cm. The larger segment is bisected transversely. The specimen is entirely submitted in one cassette. MP/tahir 09/25/2023 Tissue pathology report for: [facility], [address] [place] [address]; ____ Print 09/26/2023 16:04 EST Number: Date/Time: [facility] Department of Pathology [address] [place], [place] [id number] Name: BJORN BOATENG : 1990 [facility] [id number] Number: Gender [facility] : n: Admit 33 years Attending ARLINE ARRINGTON Age: Provider: Ordering ARLINE ARRINGTON Provider: Consulti Surgical Pathology Report ng: ACCESSION: COLLECTED DATE/TIME: RECEIVED DATE/TIME: PATHOLOGIST: [id number] 09/24/2023 12:01 EST 09/25/2023 13:27 EST TERRIE KOEHLER, MATI Gross Description PATHOLOGY SERVICES PROVIDED BY [email or web address], [facility] (CLIA #[id number]) in cooperation with [facility] at [address] [place] [address] (CLIA #[id number]) Microscopic Diagnosis The final diagnosis is based on a microscopic exam of customer field representative sections. Codes CPT CODE: 64456 ____ Print 09/26/2023 16:04 EST Number: Date/Time: Normal [facility] Comment on above: Performed By: #### [id number] #### [facility] [address] [place], [place] [id number] Benefits Sales Consultant: Mike Taylor MD Consent for Procedure/Surger yon 09-03-2023 Consent for Procedure/Surgery [id number]#1.00TIFF Normal [facility] Insurance Correspondenceon 1 11-03-2022 Insurance Correspondence [id number]# 1.00TIFF [facility] General Surgery Office/Clini c Noteon 09-02-2023 General [...] plan excisional biopsy under local anesthesia at [facility], informed consent obtained. Ordered: sulfamethoxazole-tri methoprim, 1 tab(s), Oral, BID for 5 day(s), 10 tab(s), Refill(s) 0, [employer] #72, 172.7, cm, 09/02/23 14:11:00 EST, Height/Length [...] inactivated - Not Given Patient Refuses Normal [facility] Comment on above: Result Comment: Elec tronically Signed By: MURPHY KOEHLER, Arline Joseph\Date and Time Signed: 09/02/23 19:23 EST CBC AUTO DIFFon 05-29-2022 BASO # 0.0 103/ul Normal 0.0-0.1 [facility] Comment on above: Performed By: #### C BC #### [facility] [address] [address] [address] Ellie Hagan Basophils/100 WBC (Bld) 0.5 % Normal 0.2-2.0 [facility] Comment on above: Performed By: #### C BC #### [facility] [address] [address] [address] Ellie Hagan EO # 0.1 103/ul Normal 0.0-0.7 [facility] Comment on above: Performed By: #### C BC #### [facility] [address] [place] [address] Dr. Ellie Hagan Eosinophils/100 WBC (Bld) 1.7 % Normal 0.9-7.0 [facility] Comment on above: Performed By: #### C BC #### [facility] [address] [place] [address] Dr. Ellie Hagan Erythrocyte distribution width (RBC) [Ratio] 11.8 % Normal 11.0-15.0 [facility] Comment on above: Performed By: #### C BC #### [facility] [address] [place] [address] Dr. Ellie Hagan Hematocrit (Bld) [Volume fraction] 36.8 % Normal 36.0-48.0 [facility] Comment on above: Performed By: #### C BC #### [facility] [address] [place] [address] Dr. Ellie Hagan Hemoglobin (Bld) [Mass/Vol] 12.8 g/dL Normal 12.0-16.0 [facility] Comment on above: Performed By: #### C BC #### [facility] [address] [place] [address] Dr. Ellie Hagan IG # 0.10 10e3/ul Critically high 0.00-0.03 [facility] Comment on above: Performed By: #### C BC #### [facility] [address] [place] [address] Dr. Ellie Hagan IG % 1.3 % Critically high 0.0-0.5 [facility] Comment on above: Performed By: #### C BC #### [facility] [address] [place] [address] Dr. Ellie Hagan LYMPH # 2.1 103/ul Normal 1.2-3.8 [facility] Comment on above: Performed By: #### C BC #### [facility] [address] [place] [address] Dr. Ellie Hagan Lymphocytes/100 WBC (Bld) 28.5 % Normal 20.5-60.0 [facility] Comment on above: Performed By: #### C BC #### [facility] [address] [place] [address] Dr. Ellie Hagan MANUAL DIFF REQ NO Normal [facility] Comment on above: Performed By: #### C BC #### [facility] [address] [place] [address] Dr. Ellie Hagan MCH (RBC) [Entitic mass] 30.8 pg Normal 26.7-34.0 [facility] Comment on above: Performed By: #### C BC #### [facility] [address] [place] [address] Dr. Ellie Hagan MCHC (RBC) [Mass/Vol] 34.8 g/dL Normal 29.9-35.2 [facility] Comment on above: Performed By: #### C BC #### [facility] [address] [place] [address] Dr. Ellie Hagan MCV (RBC) [Entitic vol] 88.5 fL Normal 81.0-99.0 [facility] Comment on above: Performed By: #### C BC #### [facility] [address] [place] [address] Dr. Ellie Hagan MONO # 0.7 103/ul Normal 0.3-0.8 [facility] Comment on above: Performed By: #### C BC #### [facility] [address] [place] [address] Dr. Ellie Hagan Monocytes/100 WBC (Bld) 9.6 % Normal 1.7-12.0 [facility] Comment on above: Performed By: #### C BC #### [facility] [address] [place] [address] Dr. Ellie Hagan NEUT # 4.4 103/ul Normal 1.4-6.5 [facility] Comment on above: Performed By: #### C BC #### [facility] [address] [place] [address] Dr. Ellie Hagan Neutrophils/100 WBC (Bld) 58.4 % Normal 43.0-75.0 [facility] Comment on above: Performed By: #### C BC #### [facility] [address] [place], [place] [address] Dr. Ellie Hagan Platelet mean volume (Bld) [Entitic vol] 10.1 fL Normal 9.5-13.5 [facility] Comment on above: Performed By: #### C BC #### [facility] [address] [address] [address] Ellie Hagan PLT 232 103/ul Normal 150-450 [facility] Comment on above: Performed By: #### C BC #### [facility] [address] [place], [place] [address] Dr. Ellie Hagan RBC 4.16 106/ul Critically low 4.20-5.40 [facility] Comment on above: Performed By: #### C BC #### [facility] [address] [place], [place] [address] Dr. Ellie Hagan WBC 7.5 103/ul Normal 4.0-11.0 [facility] Comment on above: Performed By: #### C BC #### [facility] [address] [place], [place] [address] Dr. Ellie Hagan US EXT NON VASC [...] ASHLEY GROSS Date: 2022-05-29 16:13 Normal [facility] HCG-BETA SUBUNIT QUANTon hCG,Beta Subunit,Qnt,Serum <1 Normal [facility] Comment on above: Result Comment: Fema le (Non-) 0 - 5 (Postmenopausal) 0 - 8 . Female () Weeks of Gestation 3 6 - 71 4 10 - 177 5 322 - 0432 6 073 - 89248 7 [phone] -[id number] 8 49387 -[phone] 9 30976 -479155 10 70100 -787458 12 60626 -035079 14 68151 - 01385 15 33094 - 65489 16 0281 - 30429 17 2062 - 23308 18 6506 - 14589 [place] ECLIA methodology Performed By: #### H CGSUB #### [facility] [address] [place] [address] Dr. Ellie Hagan CBC AUTO DIFFon 05-21-2022 BASO # 0.0 103/ul Normal 0.0-0.1 [facility] Comment on above: Performed By: #### C BC #### [facility] [address] [place] [address] Dr. Ellie Hagan Basophils/100 WBC (Bld) 0.7 % Normal 0.2-2.0 [facility] Comment on above: Performed By: #### C BC #### [facility] [address] [place] [address] Dr. Ellie Hagan EO # 0.1 103/ul Normal 0.0-0.7 [facility] Comment on above: Performed By: #### C BC #### [facility] [address] [place] [address] Dr. Ellie Hagan Eosinophils/100 WBC (Bld) 1.4 % Normal 0.9-7.0 [facility] Comment on above: Performed By: #### C BC #### [facility] [address] [place] [address] Dr. Ellie Hagan Erythrocyte distribution width (RBC) [Ratio] 11.9 % Normal 11.0-15.0 [facility] Comment on above: Performed By: #### C BC #### [facility] [address] [place] [address] Dr. Ellie Hagan Hematocrit (Bld) [Volume fraction] 36.3 % Normal 36.0-48.0 [facility] Comment on above: Performed By: #### C BC #### [facility] [address] [place] [address] Dr. Ellie Hagan Hemoglobin (Bld) [Mass/Vol] 12.7 g/dL Normal 12.0-16.0 [facility] Comment on above: Performed By: #### C BC #### [facility] [address] [address] [address] Ellie Hagan IG # 0.07 10e3/ul Critically high 0.00-0.03 [facility] Comment on above: Performed By: #### C BC #### [facility] [address] [place] [address] Dr. Ellie Hagan IG % 1.3 % Critically high 0.0-0.5 [facility] Comment on above: Performed By: #### C BC #### [facility] [address] [place] [address] Dr. Ellie Hagan LYMPH # 1.8 103/ul Normal 1.2-3.8 [facility] Comment on above: Performed By: #### C BC #### [facility] [address] [place] [address] Dr. Ellie Hagan Lymphocytes/100 WBC (Bld) 32.0 % Normal 20.5-60.0 [facility] Comment on above: Performed By: #### C BC #### [facility] [address] [place] [address] Dr. Ellie Hagan MANUAL DIFF REQ NO Normal [facility] Comment on above: Performed By: #### C BC #### [facility] [address] [place] [address] Dr. Ellie Hagan MCH (RBC) [Entitic mass] 31.3 pg Normal 26.7-34.0 [facility] Comment on above: Performed By: #### C BC #### [facility] [address] [place] [address] Dr. Ellie Hagan MCHC (RBC) [Mass/Vol] 35.0 g/dL Normal 29.9-35.2 [facility] Comment on above: Performed By: #### C BC #### [facility] [address] [place] [address] Dr. Ellie Hagan MCV (RBC) [Entitic vol] 89.4 fL Normal 81.0-99.0 [facility] Comment on above: Performed By: #### C BC #### [facility] [address] [place] [address] Dr. Ellie Hagan MONO # 0.5 103/ul Normal 0.3-0.8 [facility] Comment on above: Performed By: #### C BC #### [facility] [address] [place] [address] Dr. Ellie Hagan Monocytes/100 WBC (Bld) 8.9 % Normal 1.7-12.0 [facility] Comment on above: Performed By: #### C BC #### [facility] [address] [place] [address] Dr. Ellie Hagan NEUT # 3.1 103/ul Normal 1.4-6.5 [facility] Comment on above: Performed By: #### C BC #### [facility] [address] [place] [address] Dr. Ellie Hagan Neutrophils/100 WBC (Bld) 55.7 % Normal 43.0-75.0 [facility] Comment on above: Performed By: #### C BC #### [facility] [address] [place] [address] Dr. Ellie Hagan Platelet mean volume (Bld) [Entitic vol] 10.4 fL Normal 9.5-13.5 [facility] Comment on above: Performed By: #### C BC #### [facility] [address] [place] [address] Dr. Ellie Hagan PLT 212 103/ul Normal 150-450 [facility] Comment on above: Performed By: #### C BC #### [facility] [address] [place] [address] Dr. Ellie Hagan RBC 4.06 106/ul Critically low 4.20-5.40 [facility] Comment on above: Performed By: #### C BC #### [facility] [address] [place] [address] Dr. Ellie Hagan WBC 5.6 103/ul Normal 4.0-11.0 [facility] Comment on above: Performed By: #### C BC #### [facility] [address] [place] [address] Dr. Ellie Hagan Covid-19 PCR (CVDTBH)on SARS-CoV-2 (COVID-19) RNA SARA+probe Ql (Unsp spec) Not detected Normal NOT DETECTED [facility] Comment on above: Result Comment: This test is not yet approved or cleared by the [place] FDA. When there are no FDA-approved or cleared tests available, and other criteria are met, FDA can make tests available under an emergency access mechanism called an Emergency Use Authorization (EUA). The EUA for this test is supported by the Level Designer of Health and Human Service's (HHS's) declaration [...] consistent with SARS-CoV-2. Performed By: #### C VDTB #### [facility] [address] [place] [address] Dr. Ellie Hagan PAP ACOG PANEL 2: 30 to 65on 04-25-2022 . . Normal [facility] Comment on above: Result Comment: Perf ormed at: WB Performed By: #### [id number] #### [facility] [address] [address] [address] Ellie Hagan Age Gdln ACOG Testing -64 Normal [facility] Comment on above: Performed By: #### [id number] #### [facility] [address] [address] [address] Ellie Hagan DIAGNOSIS: Comment Abnormal [facility] Comment on above: Result Comment: EPIT HELIAL CELL ABNORMALITY. HIGH-GRADE SQUAMOUS INTRAEPITHELIAL LESION (HSIL). Performed at: WB Performed By: #### [id number] #### [facility] [address] [address] [address] Ellie Hagan Electronically signed by: Comment Normal [facility] Comment on above: Result Comment: Gayla li S Bendre, MD, Pathologist Performed at: WB Performed By: #### 4 [id number] #### [facility] [address] [place] [address] Dr. Ellie Hagan HPV Aptima Positive Abnormal Negative [facility] Comment on above: Result Comment: This nucleic acid amplification test detects fourteen high-risk HPV types (16,18,31,33,35,39,45,51,52,56,58,59,66,68) without differentiation. Performed at: =G Performed By: #### [id number] #### [facility] [address] [place] [address] Dr. Ellie Hagan Methodology: Comment Normal [facility] Comment on above: Result Comment: This liquid based ThinPrep(R) pap test was screened with the use of an image guided system. Performed at: WB Performed By: #### [id number] #### [facility] [address] [place] [address] Dr. Ellie Hagan Note: Comment Normal [facility] Comment on above: Result Comment: The Pap smear is a screening test designed to aid in the detection of premalignant and malignant conditions of the uterine cervix. It is not a diagnostic procedure and should not be used as the sole means of detecting cervical cancer. Both false-positive and false-negative reports do occur. . Performed at: WB Performed By: #### [id number] #### [facility] [address] [place] [address] Dr. Ellie Hagan Pathologist Provided ICD10 Comment Normal [facility] Comment on above: Result Comment: [id number]. [id number] Performed at: WB Performed By: #### [id number] #### [facility] [address] [place] [address] Dr. Ellie Hagan Performed by: Comment Normal [facility] Comment on above: Result Comment: Fortnuato Patel, Gristmiller (ASCP) Performed at: WB Performed By: #### [id number] #### [facility] [address] [place] [address] Dr. Ellie Hagan Recommendation: Comment Abnormal [facility] Comment on above: Result Comment: Sugg est colposcopy and biopsy if indicated. Performed at: WB Performed By: #### 4 [id number] #### [facility] [address] [address] [address] Ellie Hagan Specimen adequacy: Comment Normal [facility] Comment on above: Result Comment: Sati sfactory for evaluation. Endocervical and/or squamous metaplastic cells (endocervical component) are present. Performed at: WB Performed By: #### 4 [id number] #### [facility] [address] [address] [address] Ellie Hagan COVID Quick Testingon 2021 Result Positive [facility] Other Vital Signs Date Time Vital Sign Value Performing Clinician Facility 09-02-2023 14:04-0500 Blood Pressure Location Arline SANTIAGOL [facility] 09-02-2023 14:04-0500 Diastolic blood pressure 76 mm[Hg] Arline NILL [facility] 09-02-2023 14:04-0500 Heart rate 76 /min Arline NILL [facility] 09-02-2023 14:04-0500 Respiratory rate 16 /min Arline NILL [facility] 09-02-2023 14:04-0500 Systolic blood pressure 110 mm[Hg] Arline NILL [facility] 07-23-2022 15:23-0400 Blood Pressure Location Arline NILL [facility] 07-23-2022 15:23-0400 Diastolic blood pressure 76 mm[Hg] Arline NILL [facility] 07-23-2022 15:23-0400 Heart rate 68 /min Arline NILL [facility] 07-23-2022 15:23-0400 Respiratory rate 16 /min Arline NILL [facility] 07-23-2022 15:23-0400 Systolic blood pressure 116 mm[Hg] Arline ARRINGTON [facility] 10-26-2021 14:30-0500 Body height 172.72 cm Claudia Ginty Other [facility] Other 10-26-2021 14:30-0500 Body mass index (BMI) [Ratio] 20.52 kg/m2 Claudia Ginty Other [facility] Other 10-26-2021 14:30-0500 Body temperature 99 [degF] Claudia Ginty Other [facility] Other 10-26-2021 14:30-0500 Body weight 61.24 kg Claudia Ginty Other [facility] Other 10-26-2021 14:30-0500 Respiratory rate 18 /min Claudia Ginty Other [facility] Other 10-26-2021 14:30-0500 SaO2% (BldA) [Mass fraction] 99 % Claudia Ginty Other [facility] Other Encounters Encounter Date Encounter Type Care Provider Facility Start: 10-07-2023 End: 10-08-2023 ambulatory Arline ARRINGTON Facility: [facility] Start: 10-07-2023 End: 10-07-2023 Patient encounter procedure Arline ARRINGTON General [facility] Start: 09-25-2023 End: 09-26-2023 ambulatory ARLINE ARRINGTON Facility:[facility] Start: 09-24-2023 End: 09-25-2023 ambulatory ARLINE ARRINGTON Facility:[facility] Start: 09-02-2023 End: 09-03-2023 ambulatory Arline ARRINGTON Facility:[facility] Start: 09-02-2023 End: 09-02-2023 Patient encounter procedure Arline ARRINGTON General [facility] Start: 09-01-2023 ambulatory Arline ARRINGTON Facility[facility] Start: 12-06-[address] ASHLEY GROSS Facilit y:[facility] Start: 07-23-2022 End: 07-23-2022 Patient encounter procedure Arline ARRINGTON General Surgery [facility] Start: 05-29-2022 End: 05-30-2022 ambulatory KERRY MELVIN Facility:[facility] Start: 05-25-2022 Encounter for preprocedural laboratory examination DR ANIYAH JACKSON [facility] Start: 05-23-2022 End: 05-23-[address] MELANIE HOOKER Facility:[facility] Start: 05-21-2022 End: 05-22-[address] ANIYAH JACKSON Facility:[facility] Start: 05-21-2022 End: 05-22-2022 Encounter for preprocedural laboratory examination DR ANIYAH JACKSON Facility:[facility] Start: 04-19-2022 End: 04-19-[address] ANIYAH JACKSON Facility:[facility] Start: 03-21-2022 End: 06-30-[address] ASHLEY GROSS Facility:[facility] Start: 10-26-2021 End: 10-26-2021 ambulatory Claudia Johnson Other [facility] Other Start: 10-26-2021 Office outpatient vi sit 15 minutes Claudia Johnson [facility] Procedures Date Procedure Procedure Detail Performing Clinician Start: 09-24-2023 Excision of cyst Michae l NILL Comment on above: posterior neck Loop electrosurgical excision procedure Arline ARRINGTON Removal of ovarian cyst Liam ael NILL Immunizations Immunization Date Immunization Notes Care Provider Fa cility NEGATED: Highlighted row has not occurred!09-02-2023 influenza virus vaccine, unspecified formulation Arline ARRINGTON [facility] Payers Date Payer Category Payer Unknown [id number] 2.16.84 [id number] 1989 Unknown [id number] 2.16.84 [id number] 1989 Unknown [id number] 2.16.84 [id number] 1989 Unknown [id number] 2.16.84 [id number] 1989 Unknown [id number] 2.16.84 [id number] 1989 Unknown [id number] 2.16.84 [id number] 1989 Unknown [id number] 2.16.84 [id number] 1989 Unknown [id number] 2.16.8 [id number] 1989 Unknown [id number] 2.16.8 [id number] 1989 Unknown [id number] 2.16.8 [id number] [facility] [id number] 1960 Self-pay Social History Date Type Detail Facility Sex Assigned At [facility] Other Start: 07-23-2022 End: 09-02-2023 Tobacco smoking status Ex-smoker (finding) [facility] Tobacco smoking status Smokeless tobacco user within last 30 days [facility] Functional Status Date Assessment Result Facility 09-02-2023 Functional Status N/A [facility] 07-23-2022 Functional Status N/A [facility] Clinical Note 05-23-2022 Note Date & Type Note Facility 05-23-2022 Note OPERATIVE NOTE OPERATION DATE: 05/23/2022 PROCEDURE: LEEP Procedure. PREOPERATIVE DIAGNOSIS: Dysplasia. POSTOPERATIVE DIAGNOSIS: Dysplasia. ANESTHESIA: General. SURGEON: Aniyah Jackson D.O. INSOLE TAPER: None. SPECIMEN: Ectocervical tissue. FINDINGS: Cervical dysplasia [...] to Recovery Room in stable condition. [facility] Evaluation note 10-26-2021 Note Date & Type [...] Patient care instructions given in writting by [facility] Care At Home document [facility] Other Evaluation + Plan note Note Date & Type Note Facility Evaluation + Plan note No data available for this section [facility] Discharge instructions Note Date & Type Note Facility Hospital Discharge instructions No data available for this section [facility] Progress note Note Date & Type Note Facility Progress note No data available for this section [facility] Summary Purpose Family History No Family History Records Found No data available for this section No Family History Records Found No data available for this section No Family History Records Found Advance Directives No Advanced Directives Records FoundNo Advanced Directives Records FoundNo Advanced Directives Records Found Additional Source Comments REASON FOR VISIT (unrecogniz ed section and content) #19 BLACK TRAVERSE, +AT HOME , COUGH, EAR PAIN, SORE THROAT, BACK PAIN, H/A, FEVER Patient Care team informatio n (unrecognized section and content) Personnel Name: Melanie Hooker MD Address: Address: [address] [place] [id number] Personnel Name: Melanie Hooker MD Address: Address: [address] [place] [address] [place] [address]- Personnel Name: Melanie Hooker MD Address: Address: [address] [facility] [place] [address]- INFORMATION SOURCE (unrecogn ized section and content) DATE CREATED AUTHOR 12/07/2022 [facility] DATE CREATED AUTHOR AUTHOR'S ORGANIZ ATION 10/04/2023 [facility] DATE CREATED AUTHOR AUTHOR'S ORGANIZ ATION 10/16/2023 [facility] FOR RECORDS PERTAINING TO PATIENTS WHO [...] BE BASED ON THE PRIMARY CLINICAL RECORDS. [employer] provides no warranty or guarantee of the accuracy or completeness of information in this document.
[2025-07-06 10:28] LABS: Hematocrit 38.7 % (36.0-48.0); Hemoglobin 13.7 g/dL (12.0-16.0); Immature Granulocytes Abs Auto 0.08 10^3/uL (0.00-0.03); Immature Granulocytes Pct Auto 0.7 % (0.0-0.5); Lymphocytes Absolute Auto 1.1 10^3/uL (1.2-3.8); Mean Corpuscular HGB Conc 35.4 g/dL (29.9-35.2); Mean Corpuscular Hemoglobin 31.3 pg (26.7-34.0); Mean Corpuscular Volume 88.4 fL (81.0-99.0); Platelet Count 220 10^3/uL (150-450); Red Blood Count 4.38 10^6/uL (4.20-5.40); White Blood Count 11.5 10^3/uL (4.0-11.0)
[2025-07-06 10:30] LABS: Glucose Urine UA NEGATIVE (NEGATIVE)
[2025-07-06 10:37] LABS: Anion Gap 10.1; Blood Urea Nitrogen 11.0 mg/dL (7.0-18.0); Calcium 8.9 mg/dL (8.5-10.1); Carbon Dioxide 27.4 mmol/L (21.0-32.0); Chloride 104 mmol/L (98-107); Estimated GFR (African America >60 (>=60 mL/min/1.73m^2); Estimated GFR (Non-African Ame >60 (>=60 mL/min/1.73m^2); Glucose 98 mg/dL (74-106); Potassium 3.5 mmol/L (3.5-5.1); Sodium 138 mmol/L (136-145)
--- NOTE | 2025-07-06 10:44 | PC.NURSE ---
pt back from [place]
[2025-07-06 11:03] LABS: Cast Seen? NONE SEEN #/LPF (NONE SEEN); Crystals Seen? None Seen #/HPF (None Seen); Urine Culture Indicated NO
== END 2025-07-06 11:39 | disposition home or self-care (01) ==
PROVIDERS: Emergency Provider Emergency Medicine; PCP Family Medicine
DX: N83.292 Other ovarian cyst, left side (principal); F17.290 Nicotine dependence, other tobacco product, uncomplicated
CPT/HCPCS: 36415; 74177; 80048; 81001; 84703; 85025; 99284; Q9967

== ENCOUNTER 2025-07-08 12:54 | Outpatient (OUT) | payer BC, SELFPAY ==
--- NOTE | 2025-07-08 12:57 | US_ITS ---
The [address] [address] Patient Name: BJORN BOATENG MRN: [id number] date: 1990 Sex: F Assigned Patient Location: US Current Patient Location: US Accession/Order Number: [id number] Exam Date: 07/08/2025 13:00 Report Date: 07/08/2025 21:06 At the request of: MELANIE MALIK MD Procedure: US pelvis w/ transvaginal Transvaginal pelvic ultrasound INDICATION: Pelvic pain, left ovarian cyst COMPARISON: CT abdomen pelvis 07/06/2025 FINDINGS: Uterus anteverted measuring 8.5 x 5.1 x 4.7 cm in size. Endometrial thickness 14.7 mm, thickened. Right ovary 3.9 x 2.7 x 2.8 cm appear unremarkable. Left ovary 11.8 x 6.9 x 6.2 cm. There is a 9.1 x 7.6 x 5.2 cm cyst with internal septations noted. Question layering debris versus soft tissue components, this is not well characterized. US/US pelvis w/ transvaginal Impression: Confirmation of an 9.1 cm left adnexal cystic lesion with internal septations. Although this could be physiologic finding the patient's age, a benign (most likely) or less likely malignant ovarian neoplasm could also be considered in appropriate clinical setting. Recommend IMMIGRATION OFFICER consultation. Impression dictated by: Sky Johnson M.D. 07/08/2025 9:06 PM Dictation Location: [place] [address] Electronically authenticated by: [id number] Y Date: 07/08/2025 21:06
--- OUTSIDE RECORDS SUMMARY | 2025-07-08 12:57 | XMS_ITS | CCD ---
Author Organization [facility] Care Team Providers Care Weigher Alloy Name Role Phone Claudia Johnson Unavailable Melanie [...] 5 day(s), 10 tab(s), Refill(s) 0, [employer] #72, 172.7, cm, 09/02/23 14:11:00 EST, [...] you for choosing us for your care. [facility] Ambulatory Visit Summary BJORN BOATENG :1990 Visit [...] choosing us for your care. Normal [facility] General Surgery Office/Clini c Noteon 10-07-2023 General [...] inactivated - Not Given Patient Refuses Normal [facility] Comment on above: Result Comment: Elec tronically Signed By: MURPHY KOEHLER, Arline Craft\.br\Date and Time Signed: 10/07/23 15:10 EST Pathology Noteon 10-01-2023 Pathology Note [id number] #1.00TIFF Normal [facility] Operative Reporton Operative Report [id number] #1.00TIFF Normal [facility] SURGICAL PATH REPORTon 09-26 SURGICAL PATH REPORT [facility] Department of Pathology [address] [place] [id number] Name: BJORN BOATENG : 1990 [facility] [id number] Number: Gender Female [facility] : n: Admit 33 years Attending ARLINE ARRINGTON Age: Provider: Ordering ARLINE ARRINGTON Provider: Consulti Surgical Pathology Report ng: ACCESSION: COLLECTED DATE/TIME: RECEIVED DATE/TIME: PATHOLOGIST: [id number] 09/24/2023 12:01 EST 09/25/2023 13:27 EST TERRIE KOEHLER, [facility] Final Diagnosis Report for [facility] [place] [place] EPIDERMAL CYST, POSTERIOR NECK; EXCISION: - BENIGN SKIN WITH CHRONIC INFLAMMATION, GIANT CELLS AND FOCAL CHANGES SUGGESTIVE OF INFLAMED EPIDERMAL INCLUSION CYST. MATI FALCON PATHOLOGIST (Electronic Signature) Date Verified 09/26/2023 LL Clinical Data PRE-OP DIAGNOSIS: Not specified POST-OP DIAGNOSIS: Epidermal cyst PROCEDURES: Excision of epidermal cyst SPECIMEN: Epidermal cyst, posterior neck VISIT #[id number] / Surgical outpatient Gross Description Labeled epidermal cyst, posterior neck. Received in formalin are two ovoid segments of castro pink soft tissue. These measure in aggregate 1.4 x 0.8 x 0.5 cm. The larger segment is bisected transversely. The specimen is entirely submitted in one cassette. MP/tahir 09/25/2023 Tissue pathology report for: [facility], [address] [place] [address]; ____ Print 09/26/2023 16:04 EST Number: Date/Time: [facility] Department of Pathology [address] [place], [place] [id number] Name: BJORN BOATENG : 1990 [facility] [id number] Number: [facility] : n: Admit 33 years Attending ARLINE ARRINGTON Age: Provider: Ordering ARLINE ARRINGTON Provider: Consulti Surgical Pathology Report ng: ACCESSION: COLLECTED DATE/TIME: RECEIVED DATE/TIME: PATHOLOGIST: [id number] 09/24/2023 12:01 EST 09/25/2023 13:27 EST TERRIE OKEHLER, MATI Gross Description PATHOLOGY SERVICES PROVIDED BY [employer] (CLIA #[id number]) in cooperation with [facility] at [address] [place] [address] (CLIA #[id number]) Microscopic Diagnosis The final diagnosis is based on a microscopic exam of representative government relations sections. Codes CPT CODE: 86031 ____ Print 09/26/2023 16:04 EST Number: Date/Time: Normal [facility] Comment on above: Performed By: #### [id number] #### [facility] Laboratory Services [address] [place], [place] [id number] Telemetry Rn: Mike Taylor MD Consent for Procedure/Surger yon 09-03-2023 Consent for Procedure/Surgery [id number]#1.00TIFF Normal [facility] Insurance Correspondenceon 1 11-03-2022 Insurance Correspondence [id number]# 1.00TIFF [facility] General Surgery Office/Clini c Noteon 09-02-2023 [...] plan excisional biopsy under local anesthesia at [facility], informed consent obtained. Ordered: sulfamethoxazole-tri methoprim, 1 tab(s), Oral, BID for 5 day(s), 10 tab(s), Refill(s) 0, [employer] #72, 172.7, cm, 09/02/23 14:11:00 EST, Height/Length [...] inactivated - Not Given Patient Refuses Normal [facility] Comment on above: Result Comment: Elec tronically Signed By: MURPHY KOEHLER, Arline Joseph\Date and Time Signed: 09/02/23 19:23 EST CBC AUTO DIFFon 05-29-2022 BASO # 0.0 103/ul Normal 0.0-0.1 [facility] Comment on above: Performed By: #### C BC #### [facility] [address] [address] [address] Ellie Hagan Basophils/100 WBC (Bld) 0.5 % Normal 0.2-2.0 [facility] Comment on above: Performed By: #### C BC #### [facility] [address] [address] [address] Ellie Hagan EO # 0.1 103/ul Normal 0.0-0.7 [facility] Comment on above: Performed By: #### C BC #### [facility] [address] [place] [address] Dr. Ellie Hagan Eosinophils/100 WBC (Bld) 1.7 % Normal 0.9-7.0 [facility] Comment on above: Performed By: #### C BC #### [facility] [address] [place] [address] Dr. Ellie Hagan Erythrocyte distribution width (RBC) [Ratio] 11.8 % Normal 11.0-15.0 [facility] Comment on above: Performed By: #### C BC #### [facility] [address] [place] [address] Dr. Ellie Hagan Hematocrit (Bld) [Volume fraction] 36.8 % Normal 36.0-48.0 [facility] Comment on above: Performed By: #### C BC #### [facility] [address] [place] [address] Dr. Ellie Hagan Hemoglobin (Bld) [Mass/Vol] 12.8 g/dL Normal 12.0-16.0 [facility] Comment on above: Performed By: #### C BC #### [facility] [address] [place] [address] Dr. Ellie Hagan IG # 0.10 10e3/ul Critically high 0.00-0.03 [facility] Comment on above: Performed By: #### C BC #### [facility] [address] [place] [address] Dr. Ellie Hagan IG % 1.3 % Critically high 0.0-0.5 [facility] Comment on above: Performed By: #### C BC #### [facility] [address] [place] [address] Dr. Ellie Hagan LYMPH # 2.1 103/ul Normal 1.2-3.8 [facility] Comment on above: Performed By: #### C BC #### [facility] [address] [place] [address] Dr. Ellie Hagan Lymphocytes/100 WBC (Bld) 28.5 % Normal 20.5-60.0 [facility] Comment on above: Performed By: #### C BC #### [facility] [address] [place] [address] Dr. Ellie Hagan MANUAL DIFF REQ NO Normal [facility] Comment on above: Performed By: #### C BC #### [facility] [address] [place] [address] Dr. Ellie Hagan MCH (RBC) [Entitic mass] 30.8 pg Normal 26.7-34.0 [facility] Comment on above: Performed By: #### C BC #### [facility] [address] [place] [address] Dr. Ellei Hagan MCHC (RBC) [Mass/Vol] 34.8 g/dL Normal 29.9-35.2 [facility] Comment on above: Performed By: #### C BC #### [facility] [address] [place] [address] Dr. Ellie Hagan MCV (RBC) [Entitic vol] 88.5 fL Normal 81.0-99.0 [facility] Comment on above: Performed By: #### C BC #### [facility] [address] [place] [address] Dr. Ellie Hagan MONO # 0.7 103/ul Normal 0.3-0.8 [facility] Comment on above: Performed By: #### C BC #### [facility] [address] [place] [address] Dr. Ellie Hagan Monocytes/100 WBC (Bld) 9.6 % Normal 1.7-12.0 [facility] Comment on above: Performed By: #### C BC #### [facility] [address] [place] [address] Dr. Ellie Hagan NEUT # 4.4 103/ul Normal 1.4-6.5 [facility] Comment on above: Performed By: #### C BC #### [facility] [address] [place] [address] Dr. Ellie Hagan Neutrophils/100 WBC (Bld) 58.4 % Normal 43.0-75.0 [facility] Comment on above: Performed By: #### C BC #### [facility] [address] [place], [place] [address] Dr. Ellie Hagan Platelet mean volume (Bld) [Entitic vol] 10.1 fL Normal 9.5-13.5 [facility] Comment on above: Performed By: #### C BC #### [facility] [address] [address] [address] Ellie Hagan PLT 232 103/ul Normal 150-450 [facility] Comment on above: Performed By: #### C BC #### [facility] [address] [place], [place] [address] Dr. Ellie Hagan RBC 4.16 106/ul Critically low 4.20-5.40 [facility] Comment on above: Performed By: #### C BC #### [facility] [address] [place], [place] [address] Dr. Ellie Hagan WBC 7.5 103/ul Normal 4.0-11.0 [facility] Comment on above: Performed By: #### C BC #### [facility] [address] [place], [place] [address] Dr. Ellie Hagan US EXT NON VASC [...] ASHLEY GROSS Date: 2022-05-29 16:13 Normal [facility] HCG-BETA SUBUNIT QUANTon hCG,Beta Subunit,Qnt,Serum <1 Normal [facility] Comment on above: Result Comment: Fema le (Non-) 0 - 5 (Postmenopausal) 0 - 8 . Female () Weeks of Gestation 3 6 - 71 4 10 - 404 5 779 - 1203 6 029 - 51987 7 [phone] -[phone] 8 59244 -360073 9 88508 -842267 10 07718 -206062 12 82371 -081109 14 28389 - 50245 15 80951 - 34678 16 1727 - 25076 17 4211 - 21099 18 1354 - 47525 [place] ECLIA methodology Performed By: #### H CGSUB #### [facility] [address] [place] [address] Dr. Ellie Hagan CBC AUTO DIFFon 05-21-2022 BASO # 0.0 103/ul Normal 0.0-0.1 [facility] Comment on above: Performed By: #### C BC #### [facility] [address] [place] [address] Dr. Ellie Hagan Basophils/100 WBC (Bld) 0.7 % Normal 0.2-2.0 [facility] Comment on above: Performed By: #### C BC #### [facility] [address] [place] [address] Dr. Ellie Hagan EO # 0.1 103/ul Normal 0.0-0.7 [facility] Comment on above: Performed By: #### C BC #### [facility] [address] [place] [address] Dr. Ellie Hagan Eosinophils/100 WBC (Bld) 1.4 % Normal 0.9-7.0 [facility] Comment on above: Performed By: #### C BC #### [facility] [address] [place] [address] Dr. Ellie Hagan Erythrocyte distribution width (RBC) [Ratio] 11.9 % Normal 11.0-15.0 [facility] Comment on above: Performed By: #### C BC #### [facility] [address] [place] [address] Dr. Ellie Hagan Hematocrit (Bld) [Volume fraction] 36.3 % Normal 36.0-48.0 [facility] Comment on above: Performed By: #### C BC #### [facility] [address] [place] [address] Dr. Ellie Hagan Hemoglobin (Bld) [Mass/Vol] 12.7 g/dL Normal 12.0-16.0 [facility] Comment on above: Performed By: #### C BC #### [facility] [address] [address] [address] Ellie Hagan IG # 0.07 10e3/ul Critically high 0.00-0.03 [facility] Comment on above: Performed By: #### C BC #### [facility] [address] [place] [address] Dr. Ellie Hagan IG % 1.3 % Critically high 0.0-0.5 [facility] Comment on above: Performed By: #### C BC #### [facility] [address] [place] [address] Dr. Ellie Hagan LYMPH # 1.8 103/ul Normal 1.2-3.8 [facility] Comment on above: Performed By: #### C BC #### [facility] [address] [place] [address] Dr. Ellie Hagan Lymphocytes/100 WBC (Bld) 32.0 % Normal 20.5-60.0 [facility] Comment on above: Performed By: #### C BC #### [facility] [address] [place] [address] Dr. Ellie Hagan MANUAL DIFF REQ NO Normal [facility] Comment on above: Performed By: #### C BC #### [facility] [address] [place] [address] Dr. Ellie Hagan MCH (RBC) [Entitic mass] 31.3 pg Normal 26.7-34.0 [facility] Comment on above: Performed By: #### C BC #### [facility] [address] [place] [address] Dr. Ellie Hagan MCHC (RBC) [Mass/Vol] 35.0 g/dL Normal 29.9-35.2 [facility] Comment on above: Performed By: #### C BC #### [facility] [address] [place] [address] Dr. Ellie Hagan MCV (RBC) [Entitic vol] 89.4 fL Normal 81.0-99.0 [facility] Comment on above: Performed By: #### C BC #### [facility] [address] [place] [address] Dr. Ellie Hagan MONO # 0.5 103/ul Normal 0.3-0.8 [facility] Comment on above: Performed By: #### C BC #### [facility] [address] [place] [address] Dr. Ellie Hagan Monocytes/100 WBC (Bld) 8.9 % Normal 1.7-12.0 [facility] Comment on above: Performed By: #### C BC #### [facility] [address] [place] [address] Dr. Ellie Hagan NEUT # 3.1 103/ul Normal 1.4-6.5 [facility] Comment on above: Performed By: #### C BC #### [facility] [address] [place] [address] Dr. Ellie Hagan Neutrophils/100 WBC (Bld) 55.7 % Normal 43.0-75.0 [facility] Comment on above: Performed By: #### C BC #### [facility] [address] [place] [address] Dr. Ellie Hagan Platelet mean volume (Bld) [Entitic vol] 10.4 fL Normal 9.5-13.5 [facility] Comment on above: Performed By: #### C BC #### [facility] [address] [place] [address] Dr. Ellie Hagan PLT 212 103/ul Normal 150-450 [facility] Comment on above: Performed By: #### C BC #### [facility] [address] [place] [address] Dr. Ellie Hagan RBC 4.06 106/ul Critically low 4.20-5.40 [facility] Comment on above: Performed By: #### C BC #### [facility] [address] [place] [address] Dr. Ellie Hagan WBC 5.6 103/ul Normal 4.0-11.0 [facility] Comment on above: Performed By: #### C BC #### [facility] [address] [place] [address] Dr. Ellie Hagan Covid-19 PCR (CVDTBH)on SARS-CoV-2 (COVID-19) RNA SARA+probe Ql (Unsp spec) Not detected Normal NOT DETECTED [facility] Comment on above: Result Comment: This test is not yet approved or cleared by the [place] FDA. When there are no FDA-approved or cleared tests available, and other criteria are met, FDA can make tests available under an emergency access mechanism called an Emergency Use Authorization (EUA). The EUA for this test is supported by the [place] of Health and Human Service's (HHS's) declaration [...] SARS-CoV-2. Performed By: #### C VDTB #### [facility] [address] [place] [address] Dr. Ellie Hagan PAP ACOG PANEL 2: 30 to 65on 04-25-2022 . . Normal [facility] Comment on above: Result Comment: Perf ormed at: WB Performed By: #### 4 [id number] #### [facility] [address] [address] [address] Ellie Hagan Age Gdln ACOG Testing -64 Normal [facility] Comment on above: Performed By: #### 4 [id number] #### [facility] [address] [address] [address] Ellie Hagan DIAGNOSIS: Comment Abnormal [facility] Comment on above: Result Comment: EPIT HELIAL CELL ABNORMALITY. HIGH-GRADE SQUAMOUS INTRAEPITHELIAL LESION (HSIL). Performed at: WB Performed By: #### 4 [id number] #### [facility] [address] [address] [address] Ellie Hagan Electronically signed by: Comment Normal [facility] Comment on above: Result Comment: Gayla li S Bendre, MD, Pathologist Performed at: WB Performed By: #### 4 [id number] #### [facility] [address] [place] [address] Dr. Ellie Hagan HPV Aptima Positive Abnormal Negative [facility] Comment on above: Result Comment: This nucleic acid amplification test detects fourteen high-risk HPV types (16,18,31,33,35,39,45,51,52,56,58,59,66,68) without differentiation. Performed at: =G Performed By: #### 4 [id number] #### [facility] [address] [place] [address] Dr. Ellie Hagan Methodology: Comment Normal [facility] Comment on above: Result Comment: This liquid based ThinPrep(R) pap test was screened with the use of an image guided system. Performed at: WB Performed By: #### 4 [id number] #### [facility] [address] [place] [address] Dr. Ellie Hagan Note: Comment Normal [facility] Comment on above: Result Comment: The Pap smear is a screening test designed to aid in the detection of premalignant and malignant conditions of the uterine cervix. It is not a diagnostic procedure and should not be used as the sole means of detecting cervical cancer. Both false-positive and false-negative reports do occur. . Performed at: WB Performed By: #### 4 [id number] #### [facility] [address] [place] [address] Dr. Ellie Hagan Pathologist Provided ICD10 Comment Normal [facility] Comment on above: Result Comment: [id number] Performed at: WB Performed By: #### 4 [id number] #### [facility] [address] [place] [address] Dr. Ellie Hagan Performed by: Comment Normal [facility] Comment on above: Result Comment: Fortunato Patel, Ceramic Engineer (ASCP) Performed at: WB Performed By: #### 4 [id number] #### [facility] [address] [place] [address] Dr. Ellie Hagan Recommendation: Comment Abnormal [facility] Comment on above: Result Comment: Sugg est colposcopy and biopsy if indicated. Performed at: WB Performed By: #### 4 [id number] #### [facility] [address] [address] [address] Ellie Hagan Specimen adequacy: Comment Normal [facility] Comment on above: Result Comment: Sati sfactory for evaluation. Endocervical and/or squamous metaplastic cells (endocervical component) are present. Performed at: WB Performed By: #### 4 [id number] #### [facility] [address] [address] [address] Ellie Hagan COVID Quick Testingon 2021 Result Positive [employer] Other Vital Signs Date Time Vital Sign Value Performing Clinician Facility 09-02-2023 14:04-0500 Blood Pressure Location Arline SANTIAGOL [facility] 09-02-2023 14:04-0500 Diastolic blood pressure 76 mm[Hg] Arline NILL [facility] 09-02-2023 14:04-0500 Heart rate 76 /min Arline NILL [facility] 09-02-2023 14:04-0500 Respiratory rate 16 /min Arline NILL [facility] 09-02-2023 14:04-0500 Systolic blood pressure 110 mm[Hg] Arline NILL [facility] [place] 07-23-2022 15:23-0400 Blood Pressure Location Arline NILL [facility] 07-23-2022 15:23-0400 Diastolic blood pressure 76 mm[Hg] Arline NILL [facility] 07-23-2022 15:23-0400 Heart rate 68 /min Arline NILL [facility] 07-23-2022 15:23-0400 Respiratory rate 16 /min Arline NILL [facility] 07-23-2022 15:23-0400 Systolic blood pressure 116 mm[Hg] Arline ARRINGTON [facility] [place] 10-26-2021 14:30-0500 Body height 172.72 cm Claudia Ginty Other [employer] Other 10-26-2021 14:30-0500 Body mass index (BMI) [Ratio] 20.52 kg/m2 Claudia Ginty Other [employer] Other 10-26-2021 14:30-0500 Body temperature 99 [degF] Claudia Ginty Other [employer] Other 10-26-2021 14:30-0500 Body weight 61.24 kg Claudia Ginty Other [employer] Other 10-26-2021 14:30-0500 Respiratory rate 18 /min Claudia Ginty Other [employer] Other 10-26-2021 14:30-0500 SaO2% (BldA) [Mass fraction] 99 % Claudia Ginty Other [employer] Other Encounters Encounter Date Encounter Type Care [...] Nill/Said Evan Start: 09-01-2023 ambulatory Arline ARRINGTON Facility:[facility] Start: 12-06-[address] ASHLEY GROSS Facilit y:[facility] Start: 07-23-2022 End: 07-23-2022 Patient encounter procedure Arline ARRINGTON General Surgery Nill/Said Evan Start: 05-29-2022 End: 05-30-2022 ambulatory KERRY MELVIN Facility:[facility] Start: 05-25-2022 Encounter for preprocedural laboratory examination DR ANIYAH JACKSON [facility] Start: 05-23-2022 End: 05-23-[address] MELANIE HOOKER Facility:[facility] Start: 05-21-2022 End: 05-22-[address] ANIYAH JACKSON Facility:[facility] Start: 05-21-2022 End: 05-22-2022 Encounter for preprocedural laboratory examination DR ANIYAH JACKSON Facility:[facility] Start: 04-19-2022 End: 04-19-[address] ANIYAH JACKSON Facility:[facility] Start: 03-21-2022 End: 06-30-[address] ASHLEY GROSS Facility:[facility] Start: 10-26-2021 End: 10-26-2021 ambulatory Claudia Johnson Other [employer] Other Start: 10-26-2021 Office outpatient vi sit [...] vaccine, unspecified formulation Arline ARRINGTON [facility] [place] Payers Date Payer Category Payer Unknown [id number] 2.16.84 [id number] 1989 Unknown [id number] 2.16.84 [id number] 1989 Unknown [id number] 2.16.84 [id number] 1989 Unknown [id number] 2.16.84 [id number] 1989 Unknown [id number] 2.16.84 [id number] 1989 Unknown [id number] 2.16.84 [id number] 1989 Unknown [id number] 2.16.84 [id number] 1989 Unknown [id number] 2.16.8 [id number] 1989 Unknown [id number] 2.16.8 [id number] 1989 Unknown [id number] 2.16.8 [id number] 1960 [facility] [id number] 1960 Self-pay Social History Date Type Detail Facility Sex Assigned At [employer] Other Start: 07-23-2022 End: 09-02-2023 Tobacco smoking status Ex-smoker (finding) General Surgery [facility] Tobacco smoking status Smokeless tobacco user within last 30 days General Surgery [place] Functional Status Date Assessment Result Facility 09-02-2023 Functional Status N/A General G[facility] rgery [place] 07-23-2022 Functional Status N/A General [facility] greg [place] Clinical Note 05-23-2022 Note Date & Type Note Facility 05-23-2022 Note OPERATIVE NOTE OPERATION DATE: 05/23/2022 PROCEDURE: LEEP Procedure. PREOPERATIVE DIAGNOSIS: Dysplasia. POSTOPERATIVE DIAGNOSIS: Dysplasia. ANESTHESIA: General. SURGEON: Aniyah Jackson D.O. CHALK MACHINE OPERATOR: None. SPECIMEN: Ectocervical tissue. FINDINGS: Cervical dysplasia [...] to Recovery Room in stable condition. [facility] Evaluation note 10-26-2021 Note Date & Type [...] Patient care instructions given in writting by [facility] Care At Home document [employer] Other Evaluation + Plan note Note Date & Type Note Facility Evaluation + Plan note No data available for this section General [facility] [place] [facility] Discharge instructions Note Date & Type Note Facility Hospital Discharge instructions No data available for this section General Surgery [place] Progress note Note Date & Type Note Facility Progress note No data available for this section General Surgery [place] Summary Purpose Family History No Family History [...] Personnel Name: Melanie Hooker MD Address: Address: [address] [place] [id number] Personnel Name: Melanie Hooker MD Address: Address: [address] [place] [address] [place] [address]- Personnel Name: Melanie Hooker MD Address: Address: [address] [facility] [place] [address]- INFORMATION SOURCE (unrecogn ized section and content) DATE CREATED AUTHOR 12/07/2022 [facility] DATE CREATED AUTHOR AUTHOR'S ORGANIZ ATION 10/04/2023 [facility] DATE CREATED AUTHOR AUTHOR'S ORGANIZ ATION 10/16/2023 [facility] FOR RECORDS PERTAINING TO PATIENTS WHO [...] BE BASED ON THE PRIMARY CLINICAL RECORDS. [facility] [employer] provides no warranty or guarantee of the accuracy or completeness of information in this document.
--- NOTE | 2025-07-08 13:38 | US_ITS ---
The [address] [address] Patient Name: BJORN BOATENG MRN: [id number] date: 1990 Sex: F Assigned Patient Location: US Current Patient Location: US Accession/Order Number: [id number] Exam Date: 07/08/2025 13:40 Report Date: 07/08/2025 17:25 At the request of: MELANIE MALIK MD Procedure: US renal BI Bilateral Renal Ultrasound HISTORY: Right renal cyst seen with CT examination. COMPARISON: None RIGHT kidney measures 11.2 cm. LEFT kidney measures 10.0 cm. Hydronephrosis: None RENAL STONE: No shadowing renal calculus is seen. RENAL LESIONS: Hyperechoic area inferior lateral cortex measuring up to 9 mm. 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 URINARY BLADDER: Unremarkable REPRODUCTIVE STRUCTURES Not assessed IMPRESSION : No hydronephrosis. 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 No anechoic renal cyst identified with ultrasound. Impression dictated by: Sharad Juan M.D. 07/08/2025 5:25 PM Dictation Location: [place] [address] Electronically authenticated by: [id number] Y Date: 07/08/2025 17:25
== END 2025-07-08 12:55 | disposition home or self-care (01) ==
LOC: US 12:54
PROVIDERS: PCP Family Medicine; Visit Provider Family Medicine
DX: N28.89 Other specified disorders of kidney and ureter (principal); N83.209 Unspecified ovarian cyst, unspecified side
CPT/HCPCS: 76775; 76830; 76856

== ENCOUNTER 2025-07-12 14:54 | Outpatient (OUT) | payer BC, SELFPAY ==
--- OUTSIDE RECORDS SUMMARY | 2025-07-12 15:00 | XMS_ITS | CCD ---
Author Organization [facility] Care Team Providers Care Oim Consultant Name Role Phone Claudia Johnson Unavailable Melanie Hooker Primary Care Physician GINNY, DR ASHLEY Wilkes Consulting Unavailable WEST, DR ASHLEY Wilkes Attending Unavailable WEST, DR ASHLEY Wilkes Admitting Unavailable KING, DR NAVARRO Primary Care Unavailable WEST, DR ASHLEY Wilkes Attending Unavailable WEST, DR ASHLEY Wilkes Admitting Unavailable WEST, DR ASHLEY Wilkes Consulting Unavailable KING, DR NAVARRO Primary Care Unavailable RENETTA, DR DILL Admitting Unavailable KING, DR NAVARRO Primary Care Unavailable RENETTA, DR DILL Consulting Unavailable RENETTA, DR DILL Attending Unavailable BECKMAN, NALLELY Consulting Unavailable PASCUALY, DR NAVARRO Primary Care Unavailable RENETTA, DR DILL Attending Unavailable RENETTA, DR DILL Admitting Unavailable RENETTA, DR DILL Consulting Unavailable AGUBOSIM, CHARITY Consulting Unavailable ROBERTO SUTHERLAND Consulting Unavailable RENETTA, DR DILL Admitting Unavailable KING, DR NAVARRO Primary Care Unavailable RENETTA, DR DILL Consulting Unavailable RENETTA, DR DILL Attending Unavailable RENETTA, DR DILL Consulting Unavailable KING, DR NAVARRO Primary Care Unavailable RENETTA, DR DILL Attending Unavailable RENETTA, DR DILL Admitting Unavailable KERRY MELVIN Attending Unavailable KERRY MELVIN Admitting Unavailable KING, DR NAVARRO Primary Care Unavailable GINNY, DR ASHLEY Wilkes Consulting Unavailable KERRY MELVIN Consulting Unavailable ARLINE ARRINGTON Attending Unavailable NILLARLINE Attending Unavailable NILLArline Attending Unavailable NILLArline Attending Unavailable NILLArline Attending Unavailable Unavailable Primary Care Provider Unavailabl e Allergies Allergy Classification Reported Allergen(s) Allergy Type Date of Onset Reaction(s) Facility (1 source) No Known Medication Allergies; Translations: [No Known Medication Allergies] Propensity to adverse reactions (disorder) [facility] Repository Medications Current Medications Medication Drug Class(es) Dates Sig (Normalized) Sig (Original) sulfamethoxazole 800 mg / trimethoprim 160 mg oral tablet (1 source) Dihydrofolate Reductase Inhibitor Antibacterial, Sulfonamide Antimicrobial Start: 09-02-2023 End: 09-07-2023 Bactrim D.S. 800 mg-160 mg Tab 1 tab(s), Oral, BID for 5 day(s), 10 tab(s), Refill(s) 0, [employer] #72, 172.7, cm, 09/02/23 14:11:00 EST, Height/Length [...] cyst of skin of neck 07-27-2022 Episodic Ovarian cyst (5 sources) Unspecified ovarian cyst, left side; Translations: [Complex ovarian cyst] Onset: 05-28-2022 07-12-2025 Episodic Residual codes; unclassified (3 sources) Insomnia [...] SCREENING MALIG NEOPLASM CERV] Onset: 04-19-2022 Episodic Skin and subcutaneous tissue infections (4 sources) Cellulitis, unspecified; Translations: [CELLULITIS UNSPECIFIED] Onset: 05-29-2022 Episodic Viral infection (1 source) COVID-19 Onset: 10-26-2021 Resolved: 10-26-2021 Results Test Name Value Interpretation Reference Range Facility Ambulatory Visit Summaryon 1 12-08-2022 Ambulatory Visit Summary BJORN GRUBBS :1990 Visit Date:10/07/2023 Ambulatory Visit Instructions Your [...] you for choosing us for your care. [facility] Ambulatory Visit Summary BJORN GRUBBS :1990 Visit Date:10/07/2023 Ambulatory Visit Instructions Your Care Team Attending Physician Kang ARRINGTON MD, Arline Craft Primary Care Physician - Melanie Hooker MD Procedures Performed Excision of cyst (09/24/2023), LEEP, [...] choosing us for your care. Normal [facility] General Surgery Office/Clini c Noteon 10-07-2023 [...] 15:10 EST Pathology Noteon 10-01-2023 Pathology Note [id number] #1.00TIFF Normal [facility] Operative Reporton Operative Report [id number] #1.00TIFF Normal [facility] SURGICAL PATH REPORTon 09-26 SURGICAL PATH REPORT [facility] Department of Pathology [address] [place] [id number] Name: BJORN GRUBBS : 1990 [facility] [id number] Number: Gender Female Christopher COFFMAN EVAN : n: Admit 33 years Attending ARLINE ARRINGTON Age: Provider: Ordering ARLINE ARRINGTON Provider: Consulti Surgical Pathology Report ng: ACCESSION: COLLECTED DATE/TIME: RECEIVED DATE/TIME: PATHOLOGIST: [id number] 09/24/2023 12:01 EST 09/25/2023 13:27 DOMENIC FALCON MD, [facility] Final Diagnosis Report for [facility] [place] EPIDERMAL CYST, POSTERIOR NECK; EXCISION: - BENIGN SKIN WITH CHRONIC INFLAMMATION, GIANT CELLS AND FOCAL CHANGES SUGGESTIVE OF INFLAMED EPIDERMAL INCLUSION CYST. MATI FALCON PATHOLOGIST (Electronic Signature) Date Verified 09/26/2023 LL Clinical Data PRE-OP DIAGNOSIS: Not specified POST-OP DIAGNOSIS: Epidermal cyst PROCEDURES: Excision of epidermal cyst SPECIMEN: Epidermal cyst, posterior neck VISIT #[id number] / Surgical outpatient Gross Description Labeled epidermal cyst, posterior neck. Received in formalin are two ovoid segments of castro pink soft tissue. These measure in aggregate 1.4 x 0.8 x 0.5 cm. The larger segment is bisected transversely. The specimen is entirely submitted in one cassette. MP/tahir 09/25/2023 Tissue pathology report for: [facility], [address] [place] [id number]; ____ Print 09/26/2023 16:04 EST Number: Date/Time: [facility] Department of Pathology [address] [place] [id number] Name: BJORN GRUBBS : 1990 [facility] [id number] Number: Gender Female [facility] : n: Admit 33 years Attending ARLINE ARRINGTON Age: Provider: Ordering ARLINE ARRINGTON Provider: Consulti Surgical Pathology Report ng: ACCESSION: COLLECTED DATE/TIME: RECEIVED DATE/TIME: PATHOLOGIST: [id number] 09/24/2023 12:01 EST 09/25/2023 13:27 DOMENIC FALCON MD, MATI Gross Description PATHOLOGY SERVICES PROVIDED BY [employer] (CLIA #[id number]) in cooperation with [facility] at [address] [place] [address] [place] [address] (CLIA #[id number]) Microscopic Diagnosis The final diagnosis is based on a microscopic exam of real estate representative sections. Codes CPT CODE: 19356 ____ Print 09/26/2023 16:04 EST Number: Date/Time: Normal [facility] Comment on above: Performed By: #### [id number] #### [facility] Services [address] [place], [place] [id number] Program Attendant: Mike Taylor MD Consent for Procedure/Surger yon 09-03-2023 Consent for Procedure/Surgery [id number]#1.00TIFF Normal [facility] Insurance Correspondenceon 1 11-03-2022 Insurance Correspondence [id number]# 1.00TIFF Normal [facility] General Surgery Office/Clini c Noteon 09-02-2023 General [...] plan excisional biopsy under local anesthesia at [facility], informed consent obtained. Ordered: sulfamethoxazole-tri methoprim, 1 tab(s), Oral, BID for 5 day(s), 10 tab(s), Refill(s) 0, [employer] #72, 172.7, cm, 09/02/23 14:11:00 EST, Height/Length [...] 05-29-2022 BASO # 0.0 103/ul Normal 0.0-0.1 [facility] Comment on above: Performed By: #### C BC #### [facility] [address] [address] [address] Ellie Hagan Basophils/100 WBC (Bld) 0.5 % Normal 0.2-2.0 [facility] Comment on above: Performed By: #### C BC #### [facility] [address] [address] [address] Ellie Hagan EO # 0.1 103/ul Normal 0.0-0.7 [facility] Comment on above: Performed By: #### C BC #### [facility] [address] [place] [address] Dr. Ellie Hagan Eosinophils/100 WBC (Bld) 1.7 % Normal 0.9-7.0 [facility] Comment on above: Performed By: #### C BC #### [facility] [address] [place] [address] Dr. Ellie Hagan Erythrocyte distribution width (RBC) [Ratio] 11.8 % Normal 11.0-15.0 [facility] Comment on above: Performed By: #### C BC #### [facility] [address] [place] [address] Dr. Ellie Hagan Hematocrit (Bld) [Volume fraction] 36.8 % Normal 36.0-48.0 [facility] Comment on above: Performed By: #### C BC #### [facility] [address] [place] [address] Dr. Ellie Hagan Hemoglobin (Bld) [Mass/Vol] 12.8 g/dL Normal 12.0-16.0 [facility] Comment on above: Performed By: #### C BC #### [facility] [address] [place] [address] Dr. Ellie Hagan IG # 0.10 10e3/ul Critically high 0.00-0.03 [facility] Comment on above: Performed By: #### C BC #### [facility] [address] [place] [address] Dr. Ellie Hagan IG % 1.3 % Critically high 0.0-0.5 [facility] Comment on above: Performed By: #### C BC #### [facility] [address] [place] [address] Dr. Ellie Hagan LYMPH # 2.1 103/ul Normal 1.2-3.8 [facility] Comment on above: Performed By: #### C BC #### [facility] [address] [place] [address] Dr. Ellie Hagan Lymphocytes/100 WBC (Bld) 28.5 % Normal 20.5-60.0 [facility] Comment on above: Performed By: #### C BC #### [facility] [address] [place] [address] Dr. Ellie Hagan MANUAL DIFF REQ NO Normal [facility] Comment on above: Performed By: #### C BC #### [facility] [address] [place] [address] Dr. Ellie Hagan MCH (RBC) [Entitic mass] 30.8 pg Normal 26.7-34.0 [facility] Comment on above: Performed By: #### C BC #### [facility] [address] [place] [address] Dr. Ellie Hagan MCHC (RBC) [Mass/Vol] 34.8 g/dL Normal 29.9-35.2 [facility] Comment on above: Performed By: #### C BC #### [facility] [address] [place] [address] Dr. Ellie Hagan MCV (RBC) [Entitic vol] 88.5 fL Normal 81.0-99.0 [facility] Comment on above: Performed By: #### C BC #### [facility] [address] [place] [address] Dr. Ellie Hagan MONO # 0.7 103/ul Normal 0.3-0.8 [facility] Comment on above: Performed By: #### C BC #### [facility] [address] [place] [address] Dr. Ellie Hagan Monocytes/100 WBC (Bld) 9.6 % Normal 1.7-12.0 [facility] Comment on above: Performed By: #### C BC #### [facility] [address] [place] [address] Dr. Ellie Hagan NEUT # 4.4 103/ul Normal 1.4-6.5 [facility] Comment on above: Performed By: #### C BC #### [facility] [address] [place] [address] Dr. Ellie Hagan Neutrophils/100 WBC (Bld) 58.4 % Normal 43.0-75.0 [facility] Comment on above: Performed By: #### C BC #### [facility] [address] [place] [address] Dr. Ellie Hagan Platelet mean volume (Bld) [Entitic vol] 10.1 fL Normal 9.5-13.5 [facility] Comment on above: Performed By: #### C BC #### [facility] [address] [place] [address] Dr. Ellie Hagan PLT 232 103/ul Normal 150-450 [facility] Comment on above: Performed By: #### C BC #### [facility] [address] [place] [address] Dr. Ellie Hagan RBC 4.16 106/ul Critically low 4.20-5.40 [facility] Comment on above: Performed By: #### C BC #### [facility] [address] [place] [address] Dr. Ellie Hagan WBC 7.5 103/ul Normal 4.0-11.0 [facility] Comment on above: Performed By: #### C BC #### [facility] [address] [place] [address] Dr. Ellie Hagan US EXT NON VASC [...] ASHLEY GROSS Date: 2022-05-29 16:13 Normal [facility] HCG-BETA SUBUNIT QUANTon hCG,Beta Subunit,Qnt,Serum <1 Normal [facility] Comment on above: Result Comment: Fema le (Non-) 0 - 5 (Postmenopausal) 0 - 8 . Female () Weeks of Gestation 3 6 - 71 4 10 - 750 5 054 - 8421 6 850 - 01916 7 5454 -273249 8 70205 -013453 9 28050 -590613 10 22438 -956977 12 41109 -053359 14 66007 - 35442 15 56512 - 50237 16 9215 - 65303 17 6893 - 56109 18 3545 - 02804 [place] ECLIA methodology Performed By: #### H CGSUB #### [facility] [address] [place] [address] Dr. Ellie Hagan CBC AUTO DIFFon 05-21-2022 BASO # 0.0 103/ul Normal 0.0-0.1 [facility] Comment on above: Performed By: #### C BC #### [facility] [address] [place] [address] Dr. Ellie Hagan Basophils/100 WBC (Bld) 0.7 % Normal 0.2-2.0 [facility] Comment on above: Performed By: #### C BC #### [facility] [address] [place] [address] Dr. Ellie Hagan EO # 0.1 103/ul Normal 0.0-0.7 [facility] Comment on above: Performed By: #### C BC #### [facility] [address] [place] [address] Dr. Ellie Hagan Eosinophils/100 WBC (Bld) 1.4 % Normal 0.9-7.0 [facility] Comment on above: Performed By: #### C BC #### [facility] [address] [place] [address] Dr. Ellie Hagan Erythrocyte distribution width (RBC) [Ratio] 11.9 % Normal 11.0-15.0 [facility] Comment on above: Performed By: #### C BC #### [facility] [address] [place] [address] Dr. Ellie Hagan Hematocrit (Bld) [Volume fraction] 36.3 % Normal 36.0-48.0 [facility] Comment on above: Performed By: #### C BC #### [facility] [address] [place] [address] Dr. Ellie Hagan Hemoglobin (Bld) [Mass/Vol] 12.7 g/dL Normal 12.0-16.0 [facility] Comment on above: Performed By: #### C BC #### [facility] [address] [place] [address] Dr. Ellie Hagan IG # 0.07 10e3/ul Critically high 0.00-0.03 [facility] Comment on above: Performed By: #### C BC #### [facility] [address] [place] [address] Dr. Ellie Hagan IG % 1.3 % Critically high 0.0-0.5 [facility] Comment on above: Performed By: #### C BC #### [facility] [address] [place] [address] Dr. Ellie Hagan LYMPH # 1.8 103/ul Normal 1.2-3.8 [facility] Comment on above: Performed By: #### C BC #### [facility] [address] [place] [address] Dr. Ellie Hagan Lymphocytes/100 WBC (Bld) 32.0 % Normal 20.5-60.0 [facility] Comment on above: Performed By: #### C BC #### [facility] [address] [place] [address] Dr. Ellie Hagan MANUAL DIFF REQ NO Normal [facility] Comment on above: Performed By: #### C BC #### [facility] [address] [place] [address] Dr. Ellie Hagan MCH (RBC) [Entitic mass] 31.3 pg Normal 26.7-34.0 [facility] Comment on above: Performed By: #### C BC #### [facility] [address] [place] [address] Dr. Ellie Hagan MCHC (RBC) [Mass/Vol] 35.0 g/dL Normal 29.9-35.2 [facility] Comment on above: Performed By: #### C BC #### [facility] [address] [place] [address] Dr. Ellie Hagan MCV (RBC) [Entitic vol] 89.4 fL Normal 81.0-99.0 [facility] Comment on above: Performed By: #### C BC #### [facility] [address] [address] [address] Ellie Hagan MONO # 0.5 103/ul Normal 0.3-0.8 [facility] Comment on above: Performed By: #### C BC #### [facility] [address] [address] [address] Ellie Hagan Monocytes/100 WBC (Bld) 8.9 % Normal 1.7-12.0 [facility] Comment on above: Performed By: #### C BC #### [facility] [address] [place] [address] Dr. Ellie Hagan NEUT # 3.1 103/ul Normal 1.4-6.5 [facility] Comment on above: Performed By: #### C BC #### [facility] [address] [place] [address] Dr. Ellie Hagan Neutrophils/100 WBC (Bld) 55.7 % Normal 43.0-75.0 [facility] Comment on above: Performed By: #### C BC #### [facility] [address] [place] [address] Dr. Ellie Hagan Platelet mean volume (Bld) [Entitic vol] 10.4 fL Normal 9.5-13.5 [facility] Comment on above: Performed By: #### C BC #### [facility] [address] [place] [address] Dr. Ellie Hagan PLT 212 103/ul Normal 150-450 [facility] Comment on above: Performed By: #### C BC #### [facility] [address] [place] [address] Dr. Ellie Hagan RBC 4.06 106/ul Critically low 4.20-5.40 [facility] Comment on above: Performed By: #### C BC #### [facility] [address] [place] [address] Dr. Ellie Hagan WBC 5.6 103/ul Normal 4.0-11.0 [facility] Comment on above: Performed By: #### C BC #### [facility] [address] [place] [address] Dr. Ellie Hagan Covid-19 PCR (CVDTBH)on SARS-CoV-2 (COVID-19) RNA SARA+probe Ql (Unsp spec) Not detected Normal NOT DETECTED [facility] Comment on above: Result Comment: This test is not yet approved or cleared by the [place] FDA. When there are no FDA-approved or cleared tests available, and other criteria are met, FDA can make tests available under an emergency access mechanism called an Emergency Use Authorization (EUA). The EUA for this test is supported by the [place] of Health and Human Service's (HHS's) declaration [...] SARS-CoV-2. Performed By: #### C VDTBH #### [facility] [address] [place] [address] Dr. Ellie Hagan PAP ACOG PANEL 2: 30 to 65on 04-25-2022 . . Normal [facility] Comment on above: Result Comment: Perf ormed at: WB Performed By: #### [id number] #### [facility] [address] [place] [address] Dr. Ellie Hagan Age Gdln ACOG Testing -64 Normal [facility] Comment on above: Performed By: #### [id number] #### [facility] [address] [place] [address] Dr. Ellie Hagan DIAGNOSIS: Comment Abnormal [facility] Comment on above: Result Comment: EPIT HELIAL CELL ABNORMALITY. HIGH-GRADE SQUAMOUS INTRAEPITHELIAL LESION (HSIL). Performed at: WB Performed By: #### [id number] #### [facility] [address] [place] [address] Dr. Ellie Hagan Electronically signed by: Comment Normal [facility] Comment on above: Result Comment: Gayla Hernandez MD, Pathologist Performed at: WB Performed By: #### [id number] #### [facility] [address] [place] [address] Dr. Ellie Hagan HPV Aptima Positive Abnormal Negative [facility] Comment on above: Result Comment: This nucleic acid amplification test detects fourteen high-risk HPV types (16,18,31,33,35,39,45,51,52,56,58,59,66,68) without differentiation. Performed at: =G Performed By: #### [id number] #### [facility] [address] [place] [address] Dr. Ellie Hagan Methodology: Comment Normal [facility] Comment on above: Result Comment: This liquid based ThinPrep(R) pap test was screened with the use of an image guided system. Performed at: WB Performed By: #### [id number] #### [facility] [address] [place] [address] Dr. Ellie Hagan Note: Comment Normal [facility] Comment on above: Result Comment: The Pap smear is a screening test designed to aid in the detection of premalignant and malignant conditions of the uterine cervix. It is not a diagnostic procedure and should not be used as the sole means of detecting cervical cancer. Both false-positive and false-negative reports do occur. . Performed at: WB Performed By: #### [id number] #### [facility] [address] [place] [address] Dr. Ellie Hagan Pathologist Provided ICD10 Comment Normal [facility] Comment on above: Result Comment: [id number]. [id number] Performed at: WB Performed By: #### [id number] #### [facility] [address] [place] [address] Dr. Ellie Hagan Performed by: Comment Normal [facility] Comment on above: Result Comment: Fortunato Patel, Manager Brand (ASCP) Performed at: WB Performed By: #### [id number] #### [facility] [address] [place] [address] Dr. Ellie Hagan Recommendation: Comment Abnormal [facility] Comment on above: Result Comment: Sugg est colposcopy and biopsy if indicated. Performed at: WB Performed By: #### 4 [id number] #### [facility] [address], [place] [address] Dr. Ellie Hagan Specimen adequacy: Comment Normal [facility] Comment on above: Result Comment: Sati sfactory for evaluation. Endocervical and/or squamous metaplastic cells (endocervical component) are present. Performed at: WB Performed By: #### 4 [id number] #### [facility] [address], [place] [address] Dr. Ellie Hagan COV[employer]Ray Quick Testingon 2021 Result Positive [facility] Other Vital Signs Date Time Vital Sign Value Performing Clinician Facility 07-12-2025 13:42-0400 Body weight 69.74 kg [employer] Work Phone: [facility] 07-12-2025 13:42-0400 Diastolic blood pressure 82 mm[Hg] [employer] Work Phone: [facility] 07-12-2025 13:42-0400 Systolic blood pressure 108 mm[Hg] [employer] Work Phone: [facility] 09-02-2023 14:04-0500 Blood Pressure Location Arline PAMELAL [facility] 09-02-2023 14:04-0500 Diastolic blood pressure 76 mm[Hg] Arline SANTIAGOL [facility] 09-02-2023 14:04-0500 Heart rate 76 /min Arline NILL [facility] 09-02-2023 14:04-0500 Respiratory rate 16 /min Arline SANTIAGOL [facility] 09-02-2023 14:04-0500 Systolic blood pressure 110 mm[Hg] Arline SANTIAGOL [facility] 07-23-2022 15:23-0400 Blood Pressure Location Arline SANTIAGOL [facility] 07-23-2022 15:23-0400 Diastolic blood pressure 76 mm[Hg] Arline SANTIAGOL [facility] 07-23-2022 15:23-0400 Heart rate 68 /min Arline SANTIAGOL [facility] 07-23-2022 15:23-0400 Respiratory rate 16 /min Arline SANTIAGOL [facility] 07-23-2022 15:23-0400 Systolic blood pressure 116 mm[Hg] Arline SANTIAGOL [facility] 10-26-2021 14:30-0500 Body height 172.72 cm Claudia Ginty Other [facility] Other 10-26-2021 14:30-0500 Body mass index (BMI) [Ratio] 20.52 kg/m2 Claudia Ginty Other [facility] Other 10-26-2021 14:30-0500 Body temperature 99 [degF] Claudia Ginty Other [facility] Other 10-26-2021 14:30-0500 Body weight 61.24 kg Claudia Ginty Other [facility] Other 10-26-2021 14:30-0500 Respiratory rate 18 /min Claudia Ginty Other [facility] Other 10-26-2021 14:30-0500 SaO2% (BldA) [Mass fraction] 99 % Claudia Ginty Other [facility] Other Encounters Encounter Date Encounter Type Care Provider Facility Start: 07-12-2025 End: 07-12-2025 Bamboo flowsheet Aniyah Renetta DO Work Phone: [facility] Start: 07-12-2025 End: 07-12-2025 Bamboo flowsheet Aniyah Renetta DO Work Phone: [facility] Start: 07-12-2025 End: 07-12-2025 Office outpatient visit 15 minutes Aniyah Renetta DO Work Phone: [facility] Comment on above: Complex ovarian cyst ; Complex cyst of left ovary Start: 10-07-2023 End: 10-08-2023 ambulatory Arline R NILL Facility:[facility] [place] Start: 10-07-2023 End: 10-07-2023 Patient encounter procedure Arline R NILL [facility] [place] Start: 09-25-2023 End: 09-26-2023 ambulatory ARLINE R PAMELAL Facility:[facility] Start: 09-24-2023 End: 09-25-2023 ambulatory ARLINE R NILL Facility:[facility] Start: 09-02-2023 End: 09-03-2023 ambulatory Arline R NILL Facility: [facility] Start: 09-02-2023 End: 09-02-2023 Patient encounter procedure Arline R NILL General [facility] [place] Start: 09-01-2023 ambulatory Arline SANTIAGOL Facility:[facility] [place] Start: 12-06-[address] ASHLEY Tabares y:[facility] Start: 07-23-2022 End: 07-23-2022 Patient encounter procedure Arline R NILL [facility] Start: 05-29-2022 End: 05-30-2022 ambulatory KERRY MELVIN Facility:[facility] Start: 05-25-2022 Encounter for preprocedural laboratory examination DR ANIYAH JACKSON [facility] Start: 05-23-2022 End: 05-23-[address] MELANIE HOOKER Facility:[facility] Start: 05-21-2022 End: 05-22-[address] ANIYAH JACKSON Facility:[facility] Start: 05-21-2022 End: 05-22-2022 Encounter for preprocedural laboratory examination DR ANIYAH JACKSON Facility:[facility] Start: 04-19-2022 End: 04-19-[address] ANIYAH JACKSON Facility:[facility] Start: 03-21-2022 End: 06-30-[address] ASHLEY GROSS Facility:[facility] Start: 10-26-2021 End: 10-26-2021 ambulatory Claudia Johnson Other [facility] Other Start: 10-26-2021 Office outpatient vi sit 15 minutes Claudia [facility] Procedures Date Procedure Procedure Detail Performing Clinician Start: 09-24-2023 Excision of cyst Michae l NILL Comment on above: posterior neck Loop electrosurgical excision procedure Arline NILL Removal of ovarian cyst Liam ael NILL Plan of Treatment Date Care Activity Detail Author Start: 07-12-2025 End: 07-12-2026 AFP tumor marker AFP tumor marker Lab Routine Complex ovarian cyst Expected: 07/12/2025 (Approximate), Expires: 07/12/2026 [facility] Comment on above: Expected: 07/12/2025 (Approximate), Expires: 07/12/2026 Start: 07-12-2025 End: 07-12-2026 CA 125 CA 125 Lab Routine Complex ovarian cyst Expected: 07/12/2025 (Approximate), Expires: 07/12/2026 [facility] Comment on above: Expected: 07/12/2025 (Approximate), Expires: 07/12/2026 Start: 07-12-2025 End: 07-12-2026 Carcinoembryonic Ag [Mass/volume] in Serum or Plasma CEA Lab Routine Complex ovarian cyst Expected: 07/12/2025 (Approximate), Expires: 07/12/2026 [facility] Comment on above: Expected: 07/12/2025 (Approximate), Expires: 07/12/2026 Start: 07-12-2025 End: 07-12-2026 HCG, tumor marker HCG, tumor marker Lab Routine Complex ovarian cyst Expected: 07/12/2025 (Approximate), Expires: 07/12/2026 [facility] Comment on above: Expected: 07/12/2025 (Approximate), Expires: 07/12/2026 Start: 07-12-2025 End: 07-12-2026 Lactate dehydrogenase, isoenzymes Lactate dehydrogenase, isoenzymes Lab Routine Complex ovarian cyst Expected: 07/12/2025 (Approximate), Expires: 07/12/2026 [facility] Work Phone: Comment on above: Expected: 07/12/2025 (Approximate), Expires: 07/12/2026 Start: 07-12-2025 End: 07-12-2025 Patient encounter procedure 07/12/2025 1:20 PM EDT Office Visit AMANDA CHRISTIAN [address] [place] [id number] Aniyah Jackson DO [address] [place], [place] [id number] Arrived AMANDA CHRISTIAN Comment on above: Arrived Immunizations Immunization Date Immunization Notes Care Provider Fa cility NEGATED: Highlighted row has not occurred!09-02-2023 influenza virus vaccine, unspecified formulation Arline ARRINGTON [facility] [place] Payers Date Payer Category Payer [facility] [id number] 1989 Unknown [id number] [id number] 1989 Unknown [id number] [id number]. 2.593 1989 Unknown [id number] 2.16.840.1.744298.3.579. 2.593 1989 Unknown [id number] 2.16.840.1.517245.3.579. 2.593 1989 Unknown [id number] 2.16.840.1.988097.3.579. 2.593 1989 Unknown [id number] 2.16.840.1.395100.3.579. 2.593 1989 Unknown [id number] 2.16.840.1.766179.3.579. 2.593 1989 Unknown [id number] 2.16.840.1.334833.3.579. 2.727 1989 Unknown [id number] 2.16.840.1.174464.3.579. 2.727 1989 Unknown [id number] [id number]. 2.727 1959 [facility] [id number] 1960 Self-pay Social History Date Type Detail Facility Sex Assigned At [facility] Other Start: 07-23-2022 End: 09-02-2023 Tobacco smoking status Ex-smoker (finding) [facility] Tobacco smoking status Smokeless tobacco user within last 30 days [facility] Tobacco smoking status IDIS Tobacco smoking consumption unknown [facility] Start: 1990 Sex assigned at Not on file [facility] Functional Status Date Assessment Result Facility 09-02-2023 Functional Status N/A [facility] 07-23-2022 Functional Status N/A [facility] [place] History of Present illness Narrative 07-12-2025 Jeny Mas LPN - 07/12/2025 1:20 PM EDT Note Date & Type Note Facility 07-12-2025 History of Presen t illness Narrative Reason for Appointment: Patient ID: Bjorn Grubbs is a 35 y.o. female who presents for Follow-up Patient presents today for Consult appointment. MEDICATIONS No current outpatient medications ALLERGIES No Known Allergies PROBLEMS Active Ambulatory Problems Diagnosis Date Noted No Active Ambulatory Problems Resolved Ambulatory Problems Diagnosis Date Noted No Resolved Ambulatory Problems No Additional Past Medical History HISTORY PAST MEDICAL HISTORY SOCIAL HISTORY No past medical history on file. Social History Tobacco Use Smoking status: Not on file Smokeless tobacco: Not on file Substance Use Topics Alcohol use: Not on file Drug use: Not on file FAMILY HISTORY No family history on file. SURGICAL HISTORY No past surgical history on file. REVIEW OF SYSTEMS Review of Systems: Review of Systems Constitutional: Negative. HENT: Negative. Eyes: Negative. Respiratory: Negative. Cardiovascular: Negative. Gastrointestinal: Negative. Genitourinary: Negative. Musculoskeletal: Negative. Skin: Negative. Neurological: Negative. All other systems reviewed and are negative. Hematological: Negative. Endocrine: Negative. Allergic/Immunologic: Negative. OBJECTIVE Objective: Physical Exam Constitutional: Appearance: Normal appearance. She is well-developed. Cardiovascular: Rate and Rhythm: Normal rate and regular rhythm. Pulmonary: Effort: Pulmonary effort is normal. Breath sounds: Normal breath sounds. Abdominal: General: Bowel sounds are normal. There is no distension. Palpations: Abdomen is soft. Tenderness: There is no abdominal tenderness. There is no guarding or rebound. Musculoskeletal: General: No swelling. Normal range of motion. Right lower leg: No edema. Left lower leg: No edema. Neurological: Mental Status: She is alert and oriented to person, place, and time. Skin: General: Skin is warm and dry. Psychiatric: Mood and Affect: Mood normal. Behavior: Behavior normal. Vitals and nursing note reviewed. Exam conducted with a public works inspector present. Vitals: There is no height or weight on file to calculate BMI. BP: 108/82 No LMP recorded. ASSESSMENT & PLAN ICD-10-CM 1. Complex ovarian cyst N83.299 Lactate dehydrogenase, isoenzymes CEA HCG, tumor marker CA 125 AFP tumor marker Lactate dehydrogenase, isoenzymes CEA HCG, tumor marker CA 125 AFP tumor marker 2. Complex cyst of left ovary N83.292 Pt presents for follow up ultrasound. 9 cm left ovarian cyst noted. Pt given tumor markers to have obtained. Pt to scheduled for dx lap with poss yeison poss foe poss BSO with left ovarian cystectomy. Pt to return for preop Documented by Jeny Mas LPN on behalf of: Aniyah Jackson DO documented in this encounter [facility] Clinical Note 05-23-2022 Note Date & Type Note Facility 05-23-2022 Note OPERATIVE NOTE OPERATION DATE: 05/23/2022 PROCEDURE: LEEP Procedure. PREOPERATIVE DIAGNOSIS: Dysplasia. POSTOPERATIVE DIAGNOSIS: Dysplasia. ANESTHESIA: General. SURGEON: Aniyah Jackson D.O. LIVESTOCK AUCTIONEER: None. SPECIMEN: Ectocervical tissue. FINDINGS: Cervical dysplasia [...] to Recovery Room in stable condition. [facility] Evaluation note 10-26-2021 Note Date & [...] Patient care instructions given in writting by [facility] Home document [facility] Other Evaluation + Plan note Note Date & Type Note Facility Evaluation + Plan note No data available for this section [facility] [place] Evaluation note Note Date & Type Note Facility Evaluation note Diagnosis Complex ovarian cyst Complex cyst of left ovary documented in this encounter [facility] Discharge instructions Note Date & Type Note Facility Hospital Discharge instructions No data available for this section [facility] [place] Progress note Note Date & Type Note Facility Progress note No data available for this section [facility] [place] Summary Purpose Family History No Family History Records Found No data available for this section No Family History Records Found No data available for this section No Family History Records Found Advance Directives No Advanced Directives Records FoundNo Advanced Directives Records FoundNo Advanced Directives Records Found Additional Source Comments REASON FOR VISIT (unrecogniz ed section and content) Reason Comments Follow-up Patient Care team informatio n (unrecognized section and content) Personnel Name: Melanie Hooker MD Address: Address: [address] [place], [place] [id number] Personnel Name: Melanie Hooker MD Address: Address: [address] [place], [place] [id number] Personnel Name: Melanie Hooker MD Address: Address: [address] [place] [address] INFORMATION SOURCE (unrecogn ized section and content) DATE CREATED AUTHOR 12/07/2022 [facility] DATE CREATED AUTHOR AUTHOR'S ORGANIZ ATION 10/04/2023 [facility] DATE CREATED AUTHOR AUTHOR'S ORGANIZ ATION 10/16/2023 [facility] FOR RECORDS PERTAINING TO PATIENTS WHO ARE [...] BE BASED ON THE PRIMARY CLINICAL RECORDS. [employer] [facility]. provides no warranty or guarantee of the accuracy or completeness of information in this document.
[2025-07-13 08:09] LABS: AFP, Serum, Tumor Marker <1.8 ng/mL (0.0-6.4); CEA <0.6 ng/mL (0.0-4.7)
== END 2025-07-12 14:55 | disposition home or self-care (01) ==
LOC: LAB 14:56
PROVIDERS: PCP Family Medicine; Visit Provider Obstetrics & Gynecology
DX: N83.299 Other ovarian cyst, unspecified side (principal)
CPT/HCPCS: 36415; 82105; 82378; 83615; 83625; 84702; 86304

== ENCOUNTER 2025-07-25 09:20 | Outpatient (OUT) | payer BC, SELFPAY ==
--- NOTE | 2025-07-25 09:33 | MR_ITS ---
The [address] [address] Patient Name: BJORN BOATENG MRN: [id number] date: 1990 Sex: F Assigned Patient Location: MRI Current Patient Location: MRI Accession/Order Number: [id number] Exam Date: 07/25/2025 10:15 Report Date: 07/25/2025 12:09 At the request of: MELANIE MALIK MD Procedure: MR abdomen wo/w con MRI OF THE ABDOMEN WITH AND WITHOUT CONTRAST: CLINICAL HISTORY: Renal Mass COMPARISON: CT abdomen and pelvis 07/06/2025 renal ultrasound 07/08/2025 TECHNIQUE: Multisequence, multiplanar imaging of the abdomen was obtained before and after the use of IV contrast. FINDINGS: The liver appears normal in contour without evidence of steatosis or intrahepatic ductal dilatation. No enhancing liver lesion. Hepatic and portal veins appear patent. Gallbladder appears unremarkable. No CBD dilatation. Pancreas appears unremarkable. Spleen appears unremarkable. Adrenal glands appear unremarkable. Abdominal aorta appears normal in caliber. No bulky lymphadenopathy or ascites. No pleural effusion. Kidneys demonstrate no enhancing renal lesion. No hydronephrosis. A small fat-containing lesion is seen involving the inferior pole of the right kidney is likely the suspected angiomyolipoma seen by ultrasound. This measures approximately 5 mm in greatest axial dimension. 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 THIS IS TOO SMALL FOR ACCURATE CHARACTERIZATION BY CT OR MRI. NO SINISTER ENHANCING RENAL LESION IS NOTED. Impression dictated by: Dustin Fontanez Jr., D.O. 07/25/2025 12:09 PM Dictation Location: [place] [address] Electronically authenticated by: [id number] Y Date: 07/25/2025 12:09
--- OUTSIDE RECORDS SUMMARY | 2025-07-25 09:36 | XMS_ITS | CCD ---
Author Organization [facility] Care Team Providers Care Sand Technician Name Role Phone Claudia Johnson Unavailable Melanie Hooker Primary Care Physician [phone] GINNY, DR ASHLEY Wilkes Consulting Unavailable WEST, DR ASHLEY Wilkes Attending Unavailable WEST, DR ASHLEY Wilkes Admitting Unavailable MORRO, DR NAVARRO Primary Care Unavailable WEST, DR ASHLEY Wilkes Attending Unavailable WEST, DR ASHLEY Wilkes Admitting Unavailable WEST, DR ASHLEY Wilkes Consulting Unavailable MORRO, DR NAVARRO Primary Care Unavailable RENETTA, DR DILL Admitting Unavailable MORRO, DR NAVARRO Primary Care Unavailable RENETTA, DR DILL Consulting Unavailable RENETTA, DR DILL Attending Unavailable BECKMAN, NALLELY Consulting Unavailable PASCUALY, DR NAVARRO Primary Care Unavailable RENETTA, DR DILL Attending Unavailable RENETTA, DR DILL Admitting Unavailable RENETTA, DR DILL Consulting Unavailable AGUBOSIM, CHARITY Consulting Unavailable ROBERTO SUTHERLAND Consulting Unavailable RENETTA, DR DILL Admitting Unavailable MORRO, DR NAVARRO Primary Care Unavailable RENETTA, DR DILL Consulting Unavailable RENETTA, DR DILL Attending Unavailable RENETTA, DR DILL Consulting Unavailable MORRO, DR NAVARRO Primary Care Unavailable RENETTA, DR DILL Attending Unavailable RENETTA, DR DILL Admitting Unavailable KERRY MELVIN Attending Unavailable KERRY MELVIN Admitting Unavailable MORRO, DR NAVARRO Primary Care Unavailable GINNY, DR ASHLEY Wilkes Consulting Unavailable KERRY MELVIN Consulting Unavailable NILARLINE Reed Attending Unavailable NILLARLINE Attending Unavailable NILLArline Attending Unavailable NILLArline Attending Unavailable Arline ARRINGTON Attending Unavailable Unavailable Primary Care Provider Unavailabl e ANIYAH JACKSON Attending Unavailable Allergies Allergy Classification Reported Allergen(s) Allergy Type Date of Onset Reaction(s) Facility (1 source) No Known Medication Allergies; Translations: [No Known Medication Allergies] Propensity to adverse reactions (disorder) [facility] Repository Medications Current Medications Medication Drug Class(es) Dates Sig (Normalized) Sig (Original) sulfamethoxazole 800 mg / trimethoprim 160 mg oral tablet (1 source) Dihydrofolate Reductase Inhibitor Antibacterial, Sulfonamide Antimicrobial Start: 09-02-2023 End: 09-07-2023 Bactrim D.S. 800 mg-160 mg Tab 1 tab(s), Oral, BID for 5 day(s), 10 tab(s), Refill(s) 0, Parallocity #72, 172.7, cm, 09/02/23 14:11:00 EST, Height/Length [...] Test Name Value Interpretation Reference Range Facility ALL CEAon 07-13-2025 CEA <0.6 0.0 - 4.7 ng/mL [facility] Comment on above: Nonsmokers <3.9 Smokers <5.6 [facility] Electrochemiluminescence Immunoassay (ECLIA) Values obtained with different assay methods or kits cannot be used interchangeably. Results cannot be interpreted as absolute evidence of the presence or absence of malignant disease. Performed at: [address] [id number] Mixing Machine Feeder: Ector Rowland PhD, Phone: [phone] [facility] Ambulatory Visit Summaryon 1 12-08-2022 Ambulatory Visit Summary BJORN GRUBBS :1990 Visit Date:10/07/2023 Ambulatory Visit Instructions Your Diagnosis Epidermal cyst of neck Your Care Team Attending Physician - MURPHY KOEHLER, Arline Craft Primary Care Physician - Melanie [...] you for choosing us for your care. [facility] Ambulatory Visit Summary BJORN GRUBBS :1990 Visit Date:10/07/2023 Ambulatory Visit Instructions Your Care Team Attending Physician - MURPHY KOEHLER, Arline Craft Primary Care Physician - Morro KOEHLER, Melanie Procedures Performed Excision of cyst (09/24/2023), [...] you for choosing us for your care. [facility] General Surgery Office/Clini c Noteon 10-07-2023 General [...] inactivated - Not Given Patient Refuses Normal [facility] Comment on above: Result Comment: Elec tronically Signed By: MURPHY KOEHLER, Arline Joseph\Date and Time Signed: 10/07/23 15:10 EST Pathology Noteon 10-01-2023 Pathology Note [id number]#[id number] Normal [facility] Operative Reporton Operative Report [id number] Normal [facility] SURGICAL PATH REPORTon 09-26 SURGICAL PATH REPORT [facility] Department of Pathology [address] [place] [address] Name: BJORN GRUBBS : 1990 Financial [id number] Number: Gender Female Christopher COFFMAN [place]GEWATER : n: Admit 33 years Attending ARLINE ARRINGTON Age: Provider: Ordering ARLINE ARRINGTON Provider: Consulti Surgical Pathology Report ng: ACCESSION: COLLECTED DATE/TIME: RECEIVED DATE/TIME: PATHOLOGIST: [id number] 09/24/2023 12:01 EST 09/25/2023 13:27 EST TERRIE KOEHLER, MATI Final Diagnosis Report for [facility] [place] EPIDERMAL CYST, POSTERIOR NECK; EXCISION: - BENIGN SKIN WITH CHRONIC INFLAMMATION, GIANT CELLS AND FOCAL CHANGES SUGGESTIVE OF INFLAMED EPIDERMAL INCLUSION CYST. MATI FALCON PATHOLOGIST (Electronic Signature) Date Verified 09/26/2023 LL Clinical Data PRE-OP DIAGNOSIS: Not specified POST-OP DIAGNOSIS: Epidermal cyst PROCEDURES: Excision of epidermal cyst SPECIMEN: Epidermal cyst, posterior neck VISIT #[id number] / Surgical outpatient Gross Description Labeled epidermal cyst, posterior neck. Received in formalin are two ovoid segments of castro pink soft tissue. These measure in aggregate 1.4 x 0.8 x 0.5 cm. The larger segment is bisected transversely. The specimen is entirely submitted in one cassette. MP/tahir 09/25/2023 Tissue pathology report for: [facility], [address] [place] [id number]; ____ Print 09/26/2023 16:04 EST Number: Date/Time: [facility] Department of Pathology [address] [place] [address] [phone] Name: BJORN GRUBBS : 1990 [facility] [id number] Number: Gender Female Christopher COFFMAN EVAN : n: Admit 33 years Attending ARLINE ARRINGTON Age: Provider: Ordering ARLINE ARRINGTON Provider: Shannani Surgical Pathology Report ng: ACCESSION: COLLECTED DATE/TIME: RECEIVED DATE/TIME: PATHOLOGIST: [id number] 09/24/2023 12:01 EST 09/25/2023 13:27 EST TERRIE KOEHLER, [facility] Gross Description PATHOLOGY SERVICES PROVIDED BY [employer] (CLIA #[id number]) in cooperation with [facility] at [address] [place] [address] (CLIA #[id number]) Microscopic Diagnosis The final diagnosis is based on a microscopic exam of front desk representative sections. Codes CPT CODE: 67524 ____ Print 09/26/2023 16:04 EST Number: Date/Time: Normal [facility] Comment on above: Performed By: #### [id number] #### [facility] [address] [place] [address] Slackline Operator: Mike Taylor MD Consent for Procedure/Surger yon 09-03-2023 Consent for Procedure/Surgery [id number] Normal [facility] Insurance Correspondenceon 1 11-03-2022 Insurance Correspondence [id number] Normal [facility] General Surgery Office/Clini c Noteon 09-02-2023 General [...] plan excisional biopsy under local anesthesia at [facility], informed consent obtained. Ordered: sulfamethoxazole-trimethop rim, 1 tab(s), Oral, BID for 5 day(s), 10 tab(s), Refill(s) 0, DiscUrban Interactions #72, 172.7, cm, 09/02/23 14:11:00 EST, Height/Length [...] inactivated - Not Given Patient Refuses Normal [facility] Comment on above: Result Comment: Elec tronically Signed By: MURPHY KOEHLER, Arline Hawley.jerrica\Date and Time Signed: 09/02/23 19:23 EST CBC AUTO DIFFon 05-29-2022 BASO # 0.0 103/ul Normal 0.0-0.1 [facility] Comment on above: Performed By: #### C BC #### [facility] [address] [address] [address] Ellie Hagan Basophils/100 WBC (Bld) 0.5 % Normal 0.2-2.0 [facility] Comment on above: Performed By: #### C BC #### [facility] [address] [address] [address] Ellie Hagan EO # 0.1 103/ul Normal 0.0-0.7 [facility] Comment on above: Performed By: #### C BC #### [facility] [address] [address] [address] Ellie Hagan Eosinophils/100 WBC (Bld) 1.7 % Normal 0.9-7.0 [facility] Comment on above: Performed By: #### C BC #### [facility] [address] [place] [address] Dr. Ellie Hagan Erythrocyte distribution width (RBC) [Ratio] 11.8 % Normal 11.0-15.0 [facility] Comment on above: Performed By: #### C BC #### [facility] [address] [address] [address] Ellie Hagan Hematocrit (Bld) [Volume fraction] 36.8 % Normal 36.0-48.0 [facility] Comment on above: Performed By: #### C BC #### [facility] [address] [place] [address] Dr. Ellie Hagan Hemoglobin (Bld) [Mass/Vol] 12.8 g/dL Normal 12.0-16.0 [facility] Comment on above: Performed By: #### C BC #### [facility] [address] [address] [address] Ellie Hagan IG # 0.10 10e3/ul Critically high 0.00-0.03 [facility] Comment on above: Performed By: #### C BC #### [facility] [address] [place] [address] Dr. Ellie Hagan IG % 1.3 % Critically high 0.0-0.5 [facility] Comment on above: Performed By: #### C BC #### [facility] [address] [place] [address] Dr. Ellie Hagan LYMPH # 2.1 103/ul Normal 1.2-3.8 [facility] Comment on above: Performed By: #### C BC #### [facility] [address] [place] [address] Dr. Ellie Hagan Lymphocytes/100 WBC (Bld) 28.5 % Normal 20.5-60.0 [facility] Comment on above: Performed By: #### C BC #### [facility] [address] [place] [address] Dr. Ellie Hagan MANUAL DIFF REQ NO Normal [facility] Comment on above: Performed By: #### C BC #### [facility] [address] [place] [address] Dr. Ellie Hagan MCH (RBC) [Entitic mass] 30.8 pg Normal 26.7-34.0 [facility] Comment on above: Performed By: #### C BC #### [facility] [address] [place] [address] Dr. Ellie Hagan MCHC (RBC) [Mass/Vol] 34.8 g/dL Normal 29.9-35.2 [facility] Comment on above: Performed By: #### C BC #### [facility] [address] [place] [address] Dr. Ellie Hagan MCV (RBC) [Entitic vol] 88.5 fL Normal 81.0-99.0 [facility] Comment on above: Performed By: #### C BC #### [facility] [address] [place] [address] Dr. Ellie Hagan MONO # 0.7 103/ul Normal 0.3-0.8 [facility] Comment on above: Performed By: #### C BC #### [facility] [address] [place] [address] Dr. Ellie Hagan Monocytes/100 WBC (Bld) 9.6 % Normal 1.7-12.0 [facility] Comment on above: Performed By: #### C BC #### [facility] [address] [place] [address] Dr. Ellie Hagan NEUT # 4.4 103/ul Normal 1.4-6.5 [facility] Comment on above: Performed By: #### C BC #### [facility] [address] [place] [address] Dr. Ellie Hagan Neutrophils/100 WBC (Bld) 58.4 % Normal 43.0-75.0 [facility] Comment on above: Performed By: #### C BC #### [facility] [address] [place] [address] Dr. Ellie Hagan Platelet mean volume (Bld) [Entitic vol] 10.1 fL Normal 9.5-13.5 [facility] Comment on above: Performed By: #### C BC #### [facility] [address] [place] [address] Dr. Ellie Hagan PLT 232 103/ul Normal 150-450 [facility] Comment on above: Performed By: #### C BC #### [facility] [address] [place] [address] Dr. Ellie Hagan RBC 4.16 106/ul Critically low 4.20-5.40 [facility] Comment on above: Performed By: #### C BC #### [facility] [address] [place] [address] Dr. Ellie Hagan WBC 7.5 103/ul Normal 4.0-11.0 [facility] Comment on above: Performed By: #### C BC #### [facility] [address] [place] [address] Dr. Ellie Hagan US EXT NON VASC [...] ASHLEY GROSS Date: 2022-05-29 16:13 Normal [facility] HCG-BETA SUBUNIT QUANTon hCG,Beta Subunit,Qnt,Serum <1 Normal [facility] Comment on above: Result Comment: Fema le (Non-) 0 - 5 (Postmenopausal) 0 - 8 . Female () Weeks of Gestation 3 6 - 71 4 10 - 750 5 973 - 0312 6 887 - 71845 7 [phone] -[phone] 8 25445 -730481 9 07325 -680417 10 39155 -914861 12 21016 -435385 14 65315 - 90336 15 02337 - 44590 16 6430 - 05602 17 1665 - 10023 18 1162 - 65303 [facility] ECLIA methodology Performed By: #### H CGSUB #### [facility] [address] [place] [address] Dr. Ellie Hagan CBC AUTO DIFFon 05-21-2022 BASO # 0.0 103/ul Normal 0.0-0.1 [facility] Comment on above: Performed By: #### C BC #### [facility] [address] [place] [address] Dr. Ellie Hagan Basophils/100 WBC (Bld) 0.7 % Normal 0.2-2.0 [facility] Comment on above: Performed By: #### C BC #### [facility] [address] [place] [address] Dr. Ellie Hagan EO # 0.1 103/ul Normal 0.0-0.7 [facility] Comment on above: Performed By: #### C BC #### [facility] [address] [place] [address] Dr. Ellie Hagan Eosinophils/100 WBC (Bld) 1.4 % Normal 0.9-7.0 [facility] Comment on above: Performed By: #### C BC #### [facility] [address] [place] [address] Dr. Ellie Hagan Erythrocyte distribution width (RBC) [Ratio] 11.9 % Normal 11.0-15.0 [facility] Comment on above: Performed By: #### C BC #### [facility] [address] [address] [address] Ellie Hagan Hematocrit (Bld) [Volume fraction] 36.3 % Normal 36.0-48.0 [facility] Comment on above: Performed By: #### C BC #### [facility] [address] [address] [address] Ellie Hagan Hemoglobin (Bld) [Mass/Vol] 12.7 g/dL Normal 12.0-16.0 [facility] Comment on above: Performed By: #### C BC #### [facility] [address] [place] [address] Dr. Ellie Hagan IG # 0.07 10e3/ul Critically high 0.00-0.03 [facility] Comment on above: Performed By: #### C BC #### [facility] [address] [place] [address] Dr. Ellie Hagan IG % 1.3 % Critically high 0.0-0.5 [facility] Comment on above: Performed By: #### C BC #### [facility] [address] [address] [address] Ellie Hagan LYMPH # 1.8 103/ul Normal 1.2-3.8 [facility] Comment on above: Performed By: #### C BC #### [facility] [address] [place] [address] Dr. Ellie Hagan Lymphocytes/100 WBC (Bld) 32.0 % Normal 20.5-60.0 [facility] Comment on above: Performed By: #### C BC #### [facility] [address] [address] [address] Ellie Hagan MANUAL DIFF REQ NO Normal [facility] Comment on above: Performed By: #### C BC #### [facility] [address] [place] [address] Dr. Ellie Hagan MCH (RBC) [Entitic mass] 31.3 pg Normal 26.7-34.0 [facility] Comment on above: Performed By: #### C BC #### [facility] [address] [address] [address] Ellie Hagan MCHC (RBC) [Mass/Vol] 35.0 g/dL Normal 29.9-35.2 [facility] Comment on above: Performed By: #### C BC #### [facility] [address] [address] [address] Ellie Hagan MCV (RBC) [Entitic vol] 89.4 fL Normal 81.0-99.0 [facility] Comment on above: Performed By: #### C BC #### [facility] [address] [place] [address] Dr. Ellie Hagan MONO # 0.5 103/ul Normal 0.3-0.8 [facility] Comment on above: Performed By: #### C BC #### [facility] [address] [place] [address] Dr. Ellie Hagan Monocytes/100 WBC (Bld) 8.9 % Normal 1.7-12.0 [facility] Comment on above: Performed By: #### C BC #### [facility] [address] [place] [address] Dr. Ellie Hagan NEUT # 3.1 103/ul Normal 1.4-6.5 [facility] Comment on above: Performed By: #### C BC #### [facility] [address] [place] [address] Dr. Ellie Hagan Neutrophils/100 WBC (Bld) 55.7 % Normal 43.0-75.0 [facility] Comment on above: Performed By: #### C BC #### [facility] [address] [place] [address] Dr. Ellie Hagan Platelet mean volume (Bld) [Entitic vol] 10.4 fL Normal 9.5-13.5 [facility] Comment on above: Performed By: #### C BC #### [facility] [address] [place] [address] Dr. Ellie Hagan PLT 212 103/ul Normal 150-450 [facility] Comment on above: Performed By: #### C BC #### [facility] [address] [place] [address] Dr. Ellie Hagan RBC 4.06 106/ul Critically low 4.20-5.40 [facility] Comment on above: Performed By: #### C BC #### [facility] [address] [place], [place] [id number] Dr. Ellie Hagan WBC 5.6 103/ul Normal 4.0-11.0 [facility] Comment on above: Performed By: #### C BC #### [facility] [address] [place] [address] Dr. Ellie Hagan [facility]on SARS-CoV-2 (COVID-19) RNA SARA+probe Ql (Unsp spec) Not detected Normal NOT DETECTED [facility] Comment on above: Result Comment: This test is not yet approved or cleared by the [place] FDA. When there are no FDA-approved or cleared tests available, and other criteria are met, FDA can make tests available under an emergency access mechanism called an Emergency Use Authorization (EUA). The EUA for this test is supported by the [place] of Health and Human Service's (HHS's) declaration [...] SARS-CoV-2. Performed By: #### C VDTBH #### [facility] [address] [place] [address] Dr. Ellie Hagan PAP ACOG PANEL 2: 30 to 65on 04-25-2022 . . Normal [facility] Comment on above: Result Comment: Perf ormed at: WB Performed By: #### [id number] #### [facility] [address] [place] [address] Dr. Ellie Hagan Age Gdln ACOG Testing 30-65 Normal [facility] Comment on above: Performed By: #### [id number] #### [facility] [address] [place] [address] Dr. Ellie Hagan DIAGNOSIS: Comment Abnormal [facility] Comment on above: Result Comment: EPIT HELIAL CELL ABNORMALITY. HIGH-GRADE SQUAMOUS INTRAEPITHELIAL LESION (HSIL). Performed at: WB Performed By: #### [id number] #### [facility] [address] [place] [address] Dr. Ellie Hagan Electronically signed by: Comment Normal [facility] Comment on above: Result Comment: Gayla Hernandez MD, Pathologist Performed at: WB Performed By: #### [id number] #### [facility] [address] [place] [address] Dr. Ellie Hagan HPV Aptima Positive Abnormal Negative [facility] Comment on above: Result Comment: This nucleic acid amplification test detects fourteen high-risk HPV types (16,18,31,33,35,39,45,51,52,56,58,59,66,68) without differentiation. Performed at: =G Performed By: #### [id number] #### [facility] [address] [place] [address] Dr. Ellie Hagan Methodology: Comment Normal [facility] Comment on above: Result Comment: This liquid based ThinPrep(R) pap test was screened with the use of an image guided system. Performed at: WB Performed By: #### [id number] #### [facility] [address] [place] [address] Dr. Ellie Hagan Note: Comment Normal [facility] Comment on above: Result Comment: The Pap smear is a screening test designed to aid in the detection of premalignant and malignant conditions of the uterine cervix. It is not a diagnostic procedure and should not be used as the sole means of detecting cervical cancer. Both false-positive and false-negative reports do occur. . Performed at: WB Performed By: #### [id number] #### [facility] [address] [place] [address] Dr. Ellie Hagan Pathologist Provided ICD10 Comment Normal [facility] Comment on above: Result Comment: [id number] Performed at: WB Performed By: #### 4 [id number] #### [facility] [address] [address] [address] Ellie Hagan Performed by: Comment Normal [facility] Comment on above: Result Comment: Fortunato Patel, Tax Services Manager (ASCP) Performed at: WB Performed By: #### [id number] #### [facility] [address] [place], [place] [address] Dr. Ellie Hagan Recommendation: Comment Abnormal [facility] Comment on above: Result Comment: Sugg est colposcopy and biopsy if indicated. Performed at: WB Performed By: #### [id number] #### [facility] [address] [place], [place] [address] Dr. Ellie Hagan Specimen adequacy: Comment Normal [facility] Comment on above: Result Comment: Sati sfactory for evaluation. Endocervical and/or squamous metaplastic cells (endocervical component) are present. Performed at: WB Performed By: #### [id number] #### [facility] [address] [address] [address] Ellie Hagan COVID Quick Testingon 2021 Result Positive ividence Other Vital Signs Date Time Vital Sign Value Performing Clinician Facility 07-12-2025 13:42-0400 Body weight 69.74 kg Aniyah Renetta DO Work Phone: [facility] 07-12-2025 13:42-0400 Diastolic blood pressure 82 mm[Hg] Aniyah Renetta DO Work Phone: [facility] 07-12-2025 13:42-0400 Systolic blood pressure 108 mm[Hg] Aniyah Renetta DO Work Phone: [facility] 09-02-2023 14:04-0500 Blood Pressure Location Arline ARRINGTON [facility] 09-02-2023 14:04-0500 Diastolic blood pressure 76 mm[Hg] Arline ARRINGTON [facility] 09-02-2023 14:04-0500 Heart rate 76 /min Arline NILL [facility] 09-02-2023 14:04-0500 Respiratory rate 16 /min Arline NILL [facility] 09-02-2023 14:04-0500 Systolic blood pressure 110 mm[Hg] Arline NILL [facility] 07-23-2022 15:23-0400 Blood Pressure Location Arline NILL [facility] 07-23-2022 15:23-0400 Diastolic blood pressure 76 mm[Hg] Arline NILL [facility] 07-23-2022 15:23-0400 Heart rate 68 /min Arline NILL [facility] 07-23-2022 15:23-0400 Respiratory rate 16 /min Arline NILL [facility] 07-23-2022 15:23-0400 Systolic blood pressure 116 mm[Hg] Arline NILL [facility] 10-26-2021 14:30-0500 Body height 172.72 cm Claudia Abound [facility] 10-26-2021 14:30-0500 Body mass index (BMI) [Ratio] 20.52 kg/m2 Claudia Ginty Other [facility] 10-26-2021 14:30-0500 Body temperature 99 [degF] Claudia Ginty Other [facility] 10-26-2021 14:30-0500 Body weight 61.24 kg Claudia Ginty Other [facility] 10-26-2021 14:30-0500 Respiratory rate 18 /min Claudia Johnson Other [facility] 10-26-2021 14:30-0500 SaO2% (BldA) [Mass fraction] 99 % Claudia Johnson Other [facility] Other Encounters Encounter Date Encounter Type Care Provider Facility Start: 07-12-2025 End: 07-12-2025 Bamboo flowsheet Aniyah Renetta DO Work Phone: [facility] Start: 07-12-2025 End: 07-13-2025 Bamboo flowsheet Aniyah Renetta DO Work Phone: [facility] Start: 07-12-2025 End: 07-13-2025 Clinisync Result Encounter Aniyah Renetta DO Work Phone: [facility] Unsolicited Start: 07-12-2025 End: 07-12-2025 Office outpatient visit 15 minutes Aniyah Renetta DO Work Phone: [facility] Comment on above: Complex ovarian cyst ; Complex cyst of left ovary Start: 07-12-2025 End: 07-12-2025 ambulatory ANIYAH RENETTA Not Available Start: 10-07-2023 End: 10-08-2023 ambulatory Arline R NILL Facility:[facility] Start: 10-07-2023 End: 10-07-2023 Patient encounter procedure Arline R NILL [facility] Start: 09-25-2023 End: 09-26-2023 ambulatory ARLINE R NILL Facility:[facility] Start: 09-24-2023 End: 09-25-2023 ambulatory ARLINE R NILL Facility:[facility] Start: 09-02-2023 End: 09-03-2023 ambulatory Arline R NILL Facility:[facility] Start: 09-02-2023 End: 09-02-2023 Patient encounter procedure Arline Craft NILL [facility] Start: 09-01-2023 ambulatory Arline ARRINGTON Facility:[facility] Start: 12-06-[address] ASHLEY GROSS Facilit y:[facility] Start: 07-23-2022 End: 07-23-2022 Patient encounter procedure Arline Craft NILL [facility] Start: 05-29-2022 End: 05-30-2022 ambulatory KERRY MELVIN Facility:[facility] Start: 05-25-2022 Encounter for preprocedural laboratory examination DR ANIYAH JACKSON [facility] Start: 05-23-2022 End: 05-23-[address] MELANIE HOOKER Facility:[facility] Start: 05-21-2022 End: 05-22-[address] ANIYAH JACKSON Facility:[facility] Start: 05-21-2022 End: 05-22-2022 Encounter for preprocedural laboratory examination DR ANIYAH JACKSON Facility:[facility] Start: 04-19-2022 End: 04-19-[address] ANIYAH JACKSON Facility:[facility] Start: 03-21-2022 End: 06-30-[address] ASHLEY GROSS Facility:[facility] Start: 10-26-2021 End: 10-26-2021 ambulatory Claudia Johnson Other [facility] Start: 10-26-2021 Office outpatient vi sit 15 minutes Claudia Johnson [facility] Procedures Date Procedure Procedure Detail Performing Clinician Start: 07-12-2025 ALL CEA Aniyah werner DO Work Phone: Start: 09-24-2023 Excision of cyst Michae l NILL Comment on above: posterior neck Loop electrosurgical excision procedure Arline NILDerek Removal of ovarian cyst Liam ael N[facility] Plan of Treatment Date Care Activity Detail Author Start: 08-25-2025 End: 08-25-2025 Patient encounter procedure 08/25/2025 10:30 AM EST Office Visit [facility] [address] [phone] Stephanie Kahn PA [address] [place] [address] [facility] Start: 07-12-2025 End: 07-12-2026 AFP tumor marker AFP tumor marker Lab Routine Complex ovarian cyst Expected: 07/12/2025 (Approximate), Expires: 07/12/2026 [facility] Comment on above: Expected: 07/12/2025 (Approximate), Expires: 07/12/2026 Start: 07-12-2025 End: 07-12-2026 CA 125 CA 125 Lab Routine Complex ovarian cyst Expected: 07/12/2025 (Approximate), Expires: 07/12/2026 [facility] Comment on above: Expected: 07/12/2025 (Approximate), Expires: 07/12/2026 Start: 07-12-2025 End: 07-12-2026 Carcinoembryonic Ag [Mass/volume] in Serum or Plasma CEA Lab Routine Complex ovarian cyst Expected: 07/12/2025 (Approximate), Expires: 07/12/2026 [facility] Comment on above: Expected: 07/12/2025 (Approximate), Expires: 07/12/2026 Start: 07-12-2025 End: 07-12-2026 HCG, tumor marker HCG, tumor marker Lab Routine Complex ovarian cyst Expected: 07/12/2025 (Approximate), Expires: 07/12/2026 [facility] Comment on above: Expected: 07/12/2025 (Approximate), Expires: 07/12/2026 Start: 07-12-2025 End: 07-12-2026 Lactate dehydrogenase, isoenzymes Lactate dehydrogenase, isoenzymes Lab Routine Complex ovarian cyst Expected: 07/12/2025 (Approximate), Expires: 07/12/2026 [facility] Work Phone: Comment on above: Expected: 07/12/2025 (Approximate), Expires: 07/12/2026 Start: 07-12-2025 End: 07-12-2025 Patient encounter procedure 07/12/2025 1:20 PM EDT Office Visit AMANDA CHRIST[facility] [address] [place] [phone] Aniyah Jackson DO [address] [place] [address] Arrived [facility] Comment on above: Arrived Immunizations Immunization Date Immunization Notes Care Provider Fa cility NEGATED: Highlighted row has not occurred!09-02-2023 influenza virus vaccine, unspecified formulation Arline ARRINGTON [facility] Payers Date Payer Category Payer [facility] [employer]BS [id number] 1989 Unknown [id number] 1989 Unknown [id number] [id number]. 2.593 1989 Unknown [id number] 2..840.1.400815.3.579. 2.593 1989 Unknown [id number] 2.840.1.401863.3.579. 2.593 1989 Unknown [id number] 2.16.840.1.270048.3.579. 2.593 1989 Unknown [id number] 2.16.840.1.133379.3.579. 2.593 1989 Unknown [id number] 2.16.840.1.699755.3.579. 2.593 1989 Unknown [id number] 2.16.840.1.128560.3.579. 2.727 1989 Unknown [id number] 2.16.840.1.951156.3.579. 2.727 1989 Unknown [id number] 2.16.840.1.817167.3.579. 2.727 1989 Unknown [id number] 2.16.840.1.470302.3.579. 2.1259 1959 [facility] [id number] 1960 Self-pay Social History Date Type Detail Facility Sex Assigned At [facility] Start: 07-23-2022 End: 09-02-2023 Tobacco smoking status Ex-smoker (finding) [facility] Tobacco smoking status Smokeless tobacco user within last 30 days [facility] Tobacco smoking status [facility] Tobacco smoking consumption unknown [facility] Start: 1990 Sex assigned at Not on file [facility] Functional Status Date Assessment Result Facility 09-02-2023 Functional Status N/A [facility] 07-23-2022 Functional Status N/A [facility] History of Present illness Narrative 07-12-2025 Jeny [...] nursing note reviewed. Exam conducted with a superintendent communications present. Vitals: There is no height or [...] Aniyah Jackson DO documented in this encounter [facility] Clinical Note 05-23-2022 Note Date & Type Note Facility 05-23-2022 Note OPERATIVE NOTE OPERATION DATE: 05/23/2022 PROCEDURE: LEEP Procedure. PREOPERATIVE DIAGNOSIS: Dysplasia. POSTOPERATIVE DIAGNOSIS: Dysplasia. ANESTHESIA: General. SURGEON: Aniyah Jackson D.O. SHAKE SAWYER: None. SPECIMEN: Ectocervical tissue. FINDINGS: Cervical dysplasia [...] to Recovery Room in stable condition. [facility] Evaluation note 10-26-2021 Note Date & Type [...] Patient care instructions given in writting by [facility] Home document [facility] Other Evaluation + Plan note Note Date & Type Note Facility Evaluation + Plan note No data available for this section [facility] Evaluation note Note Date & Type Note Facility Evaluation note Diagnosis Complex ovarian cyst Complex cyst of left ovary documented in this encounter [facility] Discharge instructions Note Date & Type Note Facility Hospital Discharge instructions No data available for this section [facility] Progress note Note Date & Type Note Facility Progress note No data available for this section [facility] Summary Purpose Family History No Family History [...] Personnel Name: Melanie Hooker MD Address: Address: [address] [place] [address] [place], [place] [address] Personnel Name: Melanie Hooker MD Address: Address: [address] [place] [address] [place] [address]- Personnel Name: Melanie Hooker MD Address: Address: [address] [place] [address] [place] [address]- INFORMATION SOURCE (unrecogn ized section and content) DATE CREATED AUTHOR 12/07/2022 [facility] DATE CREATED AUTHOR AUTHOR'S ORGANIZ ATION 10/04/[address] [facility] DATE CREATED AUTHOR AUTHOR'S ORGANIZ ATION 10/16/2023 [facility] DATE CREATED AUTHOR AUTHOR'S ORGANIZ ATION 07/13/2025 [facility] EPIC FOR RECORDS PERTAINING TO PATIENTS WHO ARE [...] BE BASED ON THE PRIMARY CLINICAL RECORDS. [facility] [employer] [facility] provides no warranty or guarantee of the accuracy or completeness of information in this document.
== END 2025-07-25 09:21 | disposition home or self-care (01) ==
LOC: MRI 09:20
PROVIDERS: PCP Family Medicine; Visit Provider Family Medicine
DX: N28.89 Other specified disorders of kidney and ureter (principal)
CPT/HCPCS: 74183; A9575

== ENCOUNTER 2025-08-08 10:03 | Outpatient (OUT) | payer BC, SELFPAY ==
--- OUTSIDE RECORDS SUMMARY | 2025-08-08 10:09 | XMS_ITS | CCD ---
Author Organization [facility] Care Team Providers Care Vp Software [employer] Name Role Phone Claudia Johnson Unavailable Melanie [...] Medication Allergies] Propensity to adverse reactions (disorder) [facility] Repository Medications Current Medications Medication Drug Class(es) Dates Sig (Normalized) Sig (Original) sulfamethoxazole 800 mg / trimethoprim 160 mg oral tablet (1 source) Dihydrofolate Reductase Inhibitor Antibacterial, Sulfonamide Antimicrobial Start: 09-02-2023 End: 09-07-2023 Bactrim D.S. 800 mg-160 mg Tab 1 tab(s), Oral, BID for 5 day(s), 10 tab(s), Refill(s) 0, [facility] #72, 172.7, cm, 09/02/23 14:11:00 EST, Height/Length [...] 07-13-2025 CEA <0.6 0.0 - 4.7 ng/mL [facility] Comment on above: Nonsmokers <3.9 Smokers <5.6 [facility] Electrochemiluminescence Immunoassay (ECLIA) Values obtained with different assay methods or kits cannot be used interchangeably. Results cannot be interpreted as absolute evidence of the presence or absence of malignant disease. Performed at: [address] [id number] Signal Technician: Ector Rowland PhD, Phone: [phone] [facility] Ambulatory Visit Summaryon 1 12-08-2022 Ambulatory Visit [...] you for choosing us for your care. [facility] Ambulatory Visit Summary BJORN GRUBBS :1990 [...] you for choosing us for your care. [facility] General Surgery Office/Clini c Noteon 10-07-2023 [...] inactivated - Not Given Patient Refuses Normal [facility] Comment on above: Result Comment: Elec tronically Signed By: MURPHY KOEHLER, Arline Joseph\Date and Time Signed: 10/07/23 15:10 EST Pathology Noteon 10-01-2023 Pathology Note [id number]#[id number] Normal [facility] Operative Reporton Operative Report [id number]#[id number] Normal [facility] SURGICAL PATH REPORTon 09-26 SURGICAL PATH REPORT [facility] Department of Pathology [address] [place] [address] [phone] Name: BJORN GRUBBS : 1990 [employer] [id number] Number: Gender Female Christopher COFFMAN [place] : n: Admit 33 years Attending ARLINE ARRINGTON Age: Provider: Ordering ARLINE ARRINGTON Provider: Consulti Surgical Pathology Report ng: ACCESSION: COLLECTED DATE/TIME: RECEIVED DATE/TIME: PATHOLOGIST: [id number] 09/24/2023 12:01 EST 09/25/2023 13:27 EST TERRIE KOEHLER, MATI Final Diagnosis Report for [facility] [place] [place] EPIDERMAL CYST, POSTERIOR NECK; EXCISION: - BENIGN SKIN WITH CHRONIC INFLAMMATION, GIANT CELLS AND FOCAL CHANGES SUGGESTIVE OF INFLAMED EPIDERMAL INCLUSION CYST. MATI FALCON PATHOLOGIST (Electronic Signature) Date Verified 09/26/2023 LL Clinical Data PRE-OP DIAGNOSIS: Not specified POST-OP DIAGNOSIS: Epidermal cyst PROCEDURES: Excision of epidermal cyst SPECIMEN: Epidermal cyst, posterior neck VISIT #[id number] / Surgical outpatient Gross Description Labeled epidermal cyst, posterior neck. Received in formalin are two ovoid segments of castro pink soft tissue. These measure in aggregate 1.4 x 0.8 x 0.5 cm. The larger segment is bisected transversely. The specimen is entirely submitted in one cassette. MP/tahir 09/25/2023 Tissue pathology report for: [facility], [address] [place] [address]; ____ Print 09/26/2023 16:04 EST Number: Date/Time: [facility] Department of Pathology [address] [place] [address] [phone] Name: BJORN GRUBBS : 1990 [facility] [id number] Number: Gender Female Christopher COFFMAN [place] : n: Admit 33 years Attending ARLINE ARRNIGTON Age: Provider: Ordering ARLINE ARRINGTON Provider: Shannani Surgical Pathology Report ng: ACCESSION: COLLECTED DATE/TIME: RECEIVED DATE/TIME: PATHOLOGIST: [id number] 09/24/2023 12:01 EST 09/25/2023 13:27 EST TERRIE KOEHLER, [facility] Gross Description PATHOLOGY SERVICES PROVIDED BY [employer] (CLIA #[id number]) in cooperation with [facility] at [address] [place] [address] (CLIA #[id number]) Microscopic Diagnosis The final diagnosis is based on a microscopic exam of ict sales representative sections. Codes CPT CODE: 20824 ____ Print 09/26/2023 16:04 EST Number: Date/Time: Normal [facility] Comment on above: Performed By: #### [id number] #### [facility] Services [address] [place] [address] Top Polisher: Mike Taylor MD Consent for Procedure/Surger yon 09-03-2023 Consent for Procedure/Surgery [id number]#[id number] Normal [facility] Insurance Correspondenceon 1 11-03-2022 Insurance Correspondence [id number]#[id number] Normal [facility] General Surgery Office/Clini c Noteon 09-02-2023 [...] plan excisional biopsy under local anesthesia at [facility], informed consent obtained. Ordered: sulfamethoxazole-trimethop rim, 1 tab(s), Oral, BID for 5 day(s), 10 tab(s), Refill(s) 0, [employer] #72, 172.7, cm, 09/02/23 14:11:00 EST, Height/Length [...] inactivated - Not Given Patient Refuses Normal [facility] Comment on above: Result Comment: Elec tronically Signed By: MURPHY KOEHLER, Arline Hawley.jerrica\Date and Time Signed: 09/02/23 19:23 EST CBC AUTO DIFFon 05-29-2022 BASO # 0.0 103/ul Normal 0.0-0.1 [facility] Comment on above: Performed By: #### C BC #### [facility] [address] [address] [address] Ellie Hagan Basophils/100 WBC (Bld) 0.5 % Normal 0.2-2.0 [facility] Comment on above: Performed By: #### C BC #### [facility] [address] [address] [address] Ellie Haagn EO # 0.1 103/ul Normal 0.0-0.7 [facility] Comment on above: Performed By: #### C BC #### [facility] [address] [address] [address] Ellie Hagan Eosinophils/100 WBC (Bld) 1.7 % Normal 0.9-7.0 [facility] Comment on above: Performed By: #### C BC #### [facility] [address] [place] [address] Dr. Ellie Hagan Erythrocyte distribution width (RBC) [Ratio] 11.8 % Normal 11.0-15.0 [facility] Comment on above: Performed By: #### C BC #### [facility] [address] [address] [address] Ellie Hagan Hematocrit (Bld) [Volume fraction] 36.8 % Normal 36.0-48.0 [facility] Comment on above: Performed By: #### C BC #### [facility] [address] [place] [address] Dr. Ellie Hagan Hemoglobin (Bld) [Mass/Vol] 12.8 g/dL Normal 12.0-16.0 [facility] Comment on above: Performed By: #### C BC #### [facility] [address] [address] [address] Ellie Hagan IG # 0.10 10e3/ul Critically high 0.00-0.03 [facility] Comment on above: Performed By: #### C BC #### [facility] [address] [place] [address] Dr. Ellie Hgaan IG % 1.3 % Critically high 0.0-0.5 [facility] Comment on above: Performed By: #### C BC #### [facility] [address] [place] [address] Dr. Ellie Hagan LYMPH # 2.1 103/ul Normal 1.2-3.8 [facility] Comment on above: Performed By: #### C BC #### [facility] [address] [place] [address] Dr. Ellie Hagan Lymphocytes/100 WBC (Bld) 28.5 % Normal 20.5-60.0 [facility] Comment on above: Performed By: #### C BC #### [facility] [address] [place] [address] Dr. Ellie Hagan MANUAL DIFF REQ NO Normal [facility] Comment on above: Performed By: #### C BC #### [facility] [address] [place] [address] Dr. Ellie Hagan MCH (RBC) [Entitic mass] 30.8 pg Normal 26.7-34.0 [facility] Comment on above: Performed By: #### C BC #### [facility] [address] [place] [address] Dr. Ellie Hagan MCHC (RBC) [Mass/Vol] 34.8 g/dL Normal 29.9-35.2 [facility] Comment on above: Performed By: #### C BC #### [facility] [address] [place] [address] Dr. Ellie Hagan MCV (RBC) [Entitic vol] 88.5 fL Normal 81.0-99.0 [facility] Comment on above: Performed By: #### C BC #### [facility] [address] [place] [address] Dr. Ellie Hagan MONO # 0.7 103/ul Normal 0.3-0.8 [facility] Comment on above: Performed By: #### C BC #### [facility] [address] [place] [address] Dr. Ellie Hagan Monocytes/100 WBC (Bld) 9.6 % Normal 1.7-12.0 [facility] Comment on above: Performed By: #### C BC #### [facility] [address] [place] [address] Dr. Ellie Hagan NEUT # 4.4 103/ul Normal 1.4-6.5 [facility] Comment on above: Performed By: #### C BC #### [facility] [address] [place] [address] Dr. Ellie Hagan Neutrophils/100 WBC (Bld) 58.4 % Normal 43.0-75.0 [facility] Comment on above: Performed By: #### C BC #### [facility] [address] [place] [address] Dr. Ellie Hagan Platelet mean volume (Bld) [Entitic vol] 10.1 fL Normal 9.5-13.5 [facility] Comment on above: Performed By: #### C BC #### [facility] [address] [place] [address] Dr. Ellie Hagan PLT 232 103/ul Normal 150-450 [facility] Comment on above: Performed By: #### C BC #### [facility] [address] [place] [address] Dr. Ellie Hagan RBC 4.16 106/ul Critically low 4.20-5.40 [facility] Comment on above: Performed By: #### C BC #### [facility] [address] [place] [address] Dr. Ellie Hagan WBC 7.5 103/ul Normal 4.0-11.0 [facility] Comment on above: Performed By: #### C BC #### [facility] [address] [place] [address] Dr. Ellie Hagan US EXT NON VASC [...] ASHLEY GROSS Date: 2022-05-29 16:13 Normal [facility] HCG-BETA SUBUNIT QUANTon hCG,Beta Subunit,Qnt,Serum <1 Normal [facility] Comment on above: Result Comment: Fema le (Non-) 0 - 5 (Postmenopausal) 0 - 8 . Female () Weeks of Gestation 3 6 - 71 4 10 - 750 5 067 - 3434 6 192 - 38165 7 8069 -678125 8 77548 -961221 9 06888 -180443 10 06088 -553353 12 78294 -278974 14 82539 - 45969 15 10670 - 46369 16 3144 - 47290 17 8058 - 75645 18 4968 - 70900 [facility] [employer] methodology Performed By: #### H CGSUB #### [facility] [address] [place] [address] Dr. Ellie Hagan CBC AUTO DIFFon 05-21-2022 BASO # 0.0 103/ul Normal 0.0-0.1 [facility] Comment on above: Performed By: #### C BC #### [facility] [address] [place] [address] Dr. Ellie Hagan Basophils/100 WBC (Bld) 0.7 % Normal 0.2-2.0 [facility] Comment on above: Performed By: #### C BC #### [facility] [address] [place] [address] Dr. Ellie Hagan EO # 0.1 103/ul Normal 0.0-0.7 [facility] Comment on above: Performed By: #### C BC #### [facility] [address] [place] [address] Dr. Ellie Hagan Eosinophils/100 WBC (Bld) 1.4 % Normal 0.9-7.0 [facility] Comment on above: Performed By: #### C BC #### [facility] [address] [place] [address] Dr. Ellie Hagan Erythrocyte distribution width (RBC) [Ratio] 11.9 % Normal 11.0-15.0 [facility] Comment on above: Performed By: #### C BC #### [facility] [address] [address] [address] Ellie Hagan Hematocrit (Bld) [Volume fraction] 36.3 % Normal 36.0-48.0 [facility] Comment on above: Performed By: #### C BC #### [facility] [address] [address] [address] Ellie Hagan Hemoglobin (Bld) [Mass/Vol] 12.7 g/dL Normal 12.0-16.0 [facility] Comment on above: Performed By: #### C BC #### [facility] [address] [place] [address] Dr. Ellie Hagan IG # 0.07 10e3/ul Critically high 0.00-0.03 [facility] Comment on above: Performed By: #### C BC #### [facility] [address] [place] [address] Dr. Ellie Hagan IG % 1.3 % Critically high 0.0-0.5 [facility] Comment on above: Performed By: #### C BC #### [facility] [address] [address] [address] Ellie Hagan LYMPH # 1.8 103/ul Normal 1.2-3.8 [facility] Comment on above: Performed By: #### C BC #### [facility] [address] [place] [address] Dr. Ellie Hagan Lymphocytes/100 WBC (Bld) 32.0 % Normal 20.5-60.0 [facility] Comment on above: Performed By: #### C BC #### [facility] [address] [address] [address] Ellie Hagan MANUAL DIFF REQ NO Normal [facility] Comment on above: Performed By: #### C BC #### [facility] [address] [place] [address] Dr. Ellie Hagan MCH (RBC) [Entitic mass] 31.3 pg Normal 26.7-34.0 [facility] Comment on above: Performed By: #### C BC #### [facility] [address] [address] [address] Ellie Hagan MCHC (RBC) [Mass/Vol] 35.0 g/dL Normal 29.9-35.2 [facility] Comment on above: Performed By: #### C BC #### [facility] [address] [address] [address] Ellie Hagan MCV (RBC) [Entitic vol] 89.4 fL Normal 81.0-99.0 [facility] Comment on above: Performed By: #### C BC #### [facility] [address] [place] [address] Dr. Ellie Hagan MONO # 0.5 103/ul Normal 0.3-0.8 [facility] Comment on above: Performed By: #### C BC #### [facility] [address] [place] [address] Dr. Ellie Hagan Monocytes/100 WBC (Bld) 8.9 % Normal 1.7-12.0 [facility] Comment on above: Performed By: #### C BC #### [facility] [address] [place] [address] Dr. Ellie Hagan NEUT # 3.1 103/ul Normal 1.4-6.5 [facility] Comment on above: Performed By: #### C BC #### [facility] [address] [place] [address] Dr. Ellie Hagan Neutrophils/100 WBC (Bld) 55.7 % Normal 43.0-75.0 [facility] Comment on above: Performed By: #### C BC #### [facility] [address] [place] [address] Dr. Ellie Hagan Platelet mean volume (Bld) [Entitic vol] 10.4 fL Normal 9.5-13.5 [facility] Comment on above: Performed By: #### C BC #### [facility] [address] [place] [address] Dr. Ellie Hagan PLT 212 103/ul Normal 150-450 [facility] Comment on above: Performed By: #### C BC #### [facility] [address] [place] [address] Dr. Ellie Hagan RBC 4.06 106/ul Critically low 4.20-5.40 [facility] Comment on above: Performed By: #### C BC #### [facility] [address] [place], [place] [id number] Dr. Ellie Hagan WBC 5.6 103/ul Normal 4.0-11.0 [facility] Comment on above: Performed By: #### C BC #### [facility] [address] [place] [address] Dr. Ellie Hagan [facility] SARS-CoV-2 (COVID-19) RNA SARA+probe Ql (Unsp spec) Not detected Normal NOT DETECTED [facility] Comment on above: Result Comment: This test is not yet approved or cleared by the [place] FDA. When there are no FDA-approved or cleared tests available, and other criteria are met, FDA can make tests available under an emergency access mechanism called an Emergency Use Authorization (EUA). The EUA for this test is supported by the [place] of Health and Human Service's (HHS's) declaration [...] SARS-CoV-2. Performed By: #### C VDTBH #### [facility] [address] [place] [address] Dr. Ellie Hagan PAP ACOG PANEL 2: 30 to 65on 04-25-2022 . . Normal [facility] Comment on above: Result Comment: Perf ormed at: WB Performed By: #### [id number] #### [facility] [address] [place] [address] Dr. Ellie Hagan Age Gdln ACOG Testing 30-65 Normal [facility] Comment on above: Performed By: #### 4 [id number] #### [facility] [address] [place] [address] Dr. Ellie Hagan DIAGNOSIS: Comment Abnormal [facility] Comment on above: Result Comment: EPIT HELIAL CELL ABNORMALITY. HIGH-GRADE SQUAMOUS INTRAEPITHELIAL LESION (HSIL). Performed at: WB Performed By: #### [id number] #### [facility] [address] [place] [address] Dr. Ellie Hagan Electronically signed by: Comment Normal [facility] Comment on above: Result Comment: Gayla Hernandez MD, Pathologist Performed at: WB Performed By: #### 4 [id number] #### [facility] [address] [place] [address] Dr. Ellie Hagan HPV Aptima Positive Abnormal Negative [facility] Comment on above: Result Comment: This nucleic acid amplification test detects fourteen high-risk HPV types (16,18,31,33,35,39,45,51,52,56,58,59,66,68) without differentiation. Performed at: =G Performed By: #### 4 [id number] #### [facility] [address] [place] [address] Dr. Ellie Hagan Methodology: Comment Normal [facility] Comment on above: Result Comment: This liquid based ThinPrep(R) pap test was screened with the use of an image guided system. Performed at: WB Performed By: #### 4 [id number] #### [facility] [address] [place] [address] Dr. Ellie Hagan Note: Comment Normal [facility] Comment on above: Result Comment: The Pap smear is a screening test designed to aid in the detection of premalignant and malignant conditions of the uterine cervix. It is not a diagnostic procedure and should not be used as the sole means of detecting cervical cancer. Both false-positive and false-negative reports do occur. . Performed at: WB Performed By: #### 4 [id number] #### [facility] [address] [place] [address] Dr. Ellie Hagan Pathologist Provided ICD10 Comment Normal [facility] Comment on above: Result Comment: [id number]. [id number] Performed at: WB Performed By: #### 4 [id number] #### [facility] [address] [address] [address] Ellie Hagan Performed by: Comment Normal [facility] Comment on above: Result Comment: Fortunato Patel, Algebraist (ASCP) Performed at: WB Performed By: #### 4 [id number] #### [facility] [address] [place], [place] [address] Dr. Ellie Hagan Recommendation: Comment Abnormal [facility] Comment on above: Result Comment: Sugg est colposcopy and biopsy if indicated. Performed at: WB Performed By: #### 4 [id number] #### [facility] [address] [place], [place] [address] Dr. Ellie Hagan Specimen adequacy: Comment Normal [facility] [place] Comment on above: Result Comment: Sati sfactory for evaluation. Endocervical and/or squamous metaplastic cells (endocervical component) are present. Performed at: WB Performed By: #### 4 [id number] #### [facility] [address] [address] [address] Ellie Hagan COVID Quick Testingon 2021 Result Positive [facility] Other Vital Signs Date Time Vital Sign Value Performing Clinician Facility 07-12-2025 13:42-0400 Body weight 69.74 kg Aniyah Renetta DO Work Phone: [facility] 07-12-2025 13:42-0400 Diastolic blood pressure 82 mm[Hg] Aniyah Renetta DO Work Phone: [facility] 07-12-2025 13:42-0400 Systolic blood pressure 108 mm[Hg] Aniyah Renetta DO Work Phone: [facility] 09-02-2023 14:04-0500 Blood Pressure Location Arline ARRINGTON [facility] [place] 09-02-2023 14:04-0500 Diastolic blood pressure 76 mm[Hg] Arline ARRINGTON [facility] [place] 09-02-2023 14:04-0500 Heart rate 76 /min Arline NILL [facility] [place] 09-02-2023 14:04-0500 Respiratory rate 16 /min Arline NILL [facility] [place] 09-02-2023 14:04-0500 Systolic blood pressure 110 mm[Hg] Arline NILL [facility] [place] 07-23-2022 15:23-0400 Blood Pressure Location Arline NILL [facility] [place] 07-23-2022 15:23-0400 Diastolic blood pressure 76 mm[Hg] Arline NILL [facility] [place] 07-23-2022 15:23-0400 Heart rate 68 /min Arline NILL [facility] [place] 07-23-2022 15:23-0400 Respiratory rate 16 /min Arline NILL [facility] [place] 07-23-2022 15:23-0400 Systolic blood pressure 116 mm[Hg] Arline NILL [facility] [place] 10-26-2021 14:30-0500 Body height 172.72 cm Claudia Benefitternty Other [facility] Other 10-26-2021 14:30-0500 Body mass index (BMI) [Ratio] 20.52 kg/m2 Claudia Ginty Other [facility] Other 10-26-2021 14:30-0500 Body temperature 99 [degF] Claudia Ginty Other [facility] Other 10-26-2021 14:30-0500 Body weight 61.24 kg Claudia Ginty Other [facility] Other 10-26-2021 14:30-0500 Respiratory rate 18 /min Claudia Johnson Other [facility] Other 10-26-2021 14:30-0500 SaO2% (BldA) [Mass fraction] 99 % Claudia Johnson Other [facility] Other Encounters Encounter Date Encounter Type Care [...] End: 10-08-2023 ambulatory Arline R NILL Facility:[facility] Start: 10-07-2023 End: 10-07-2023 Patient encounter procedure Arline R NILL [facility] Start: 09-25-2023 End: 09-26-2023 ambulatory ARLINE R NILL Facility:[facility] Start: 09-24-2023 End: 09-25-2023 ambulatory ARLINE R NILL Facility:[facility] Start: 09-02-2023 End: 09-03-2023 ambulatory Arline R NILL Facility:[facility] [place] Start: 09-02-2023 End: 09-02-2023 Patient encounter procedure Arline Craft NILL [facility] [place] Start: 09-01-2023 ambulatory Arline ARRINGTON Facility:[facility] [place] Start: 12-06-[address] ASHLEY GROSS Facilit y:[facility] Start: 07-23-2022 End: 07-23-2022 Patient encounter procedure Arline Craft NILL [facility] Start: 05-29-2022 End: 05-30-2022 ambulatory KERRY MELVIN Facility:[facility] Start: 05-25-2022 Encounter for preprocedural laboratory examination DR ANIYAH JACKSON [facility] Start: 05-23-2022 End: 05-23-[address] MELANIE HOOKER Facility:[facility] Start: 05-21-2022 End: 05-22-[address] ANIYAH JACKSON Facility:[facility] Start: 05-21-2022 End: 05-22-2022 Encounter for preprocedural laboratory examination DR ANIYAH JACKSON Facility:[facility] Start: 04-19-2022 End: 04-19-[address] ANIYAH JACKSON Facility:[facility] Start: 03-21-2022 End: 06-30-[address] ASHLEY GROSS Facility:[facility] Start: 10-26-2021 End: 10-26-2021 ambulatory Claudia Johnson Other [facility] Other Start: 10-26-2021 Office outpatient vi sit 15 minutes Claudia Johnson [facility] Procedures Date Procedure Procedure [...] AM EST Office Visit AMANDA CHRISTIAN [address] [place] [id number] Stephanie Kahn PA [address] [place] [address] AMANDA CHRISTIAN Start: 07-12-2025 End: 07-12-2026 AFP tumor marker AFP tumor marker Lab Routine Complex ovarian cyst Expected: 07/12/2025 (Approximate), Expires: 07/12/2026 [facility] Comment on above: Expected: 07/12/2025 (Approximate), Expires: 07/12/2026 Start: 07-12-2025 End: 07-12-2026 CA 125 CA 125 Lab Routine Complex ovarian cyst Expected: 07/12/2025 (Approximate), Expires: 07/12/2026 [facility] Comment on above: Expected: 07/12/2025 (Approximate), Expires: 07/12/2026 Start: 07-12-2025 End: 07-12-2026 Carcinoembryonic Ag [Mass/volume] in Serum or Plasma CEA Lab Routine Complex ovarian cyst Expected: 07/12/2025 (Approximate), Expires: 07/12/2026 [facility] Comment on above: Expected: 07/12/2025 (Approximate), Expires: 07/12/2026 Start: 07-12-2025 End: 07-12-2026 HCG, tumor marker HCG, tumor marker Lab Routine Complex ovarian cyst Expected: 07/12/2025 (Approximate), Expires: 07/12/2026 [facility] Comment on above: Expected: 07/12/2025 (Approximate), Expires: 07/12/2026 Start: 07-12-2025 End: 07-12-2026 Lactate dehydrogenase, isoenzymes Lactate dehydrogenase, isoenzymes Lab Routine Complex ovarian cyst Expected: 07/12/2025 (Approximate), Expires: 07/12/2026 [facility] Work Phone: Comment on above: Expected: 07/12/2025 (Approximate), Expires: 07/12/2026 Start: 07-12-2025 End: 07-12-2025 Patient encounter procedure 07/12/2025 1:20 PM EDT Office Visit AMANDA CHRISTIAN [address] [place] [id number] Aniyah Jackson DO [address] [place] [address] Arrived AMANDA CHRISTIAN Comment on above: Arrived Immunizations Immunization Date Immunization Notes Care Provider Fa cility NEGATED: Highlighted row has not occurred!09-02-2023 influenza virus vaccine, unspecified formulation Arline [facility] [place] Payers Date Payer Category Payer [facility] BCBS [id number] 1989 Unknown [id number] [id number] 1989 Unknown [id number] 2.840.1.261996.3.579. 2.593 1989 Unknown [id number] 2..840.1.664183.3.579. 2.593 1989 Unknown [id number] 2.840.1.791263.3.579. 2.593 1989 Unknown [id number] 2.16.840.1.060253.3.579. 2.593 1989 Unknown [id number] 2.16.840.1.648157.3.579. 2.593 1989 Unknown [id number] 2.16.840.1.576071.3.579. 2.593 1989 Unknown [id number] 2.16.840.1.042397.3.579. 2.727 1989 Unknown [id number] 2.16.840.1.819549.3.579. 2.727 1989 Unknown [id number] 2.16.840.1.904536.3.579. 2.727 1989 Unknown [id number] 2.16.840.1.768526.3.579. 2.1259 1959 [facility] [id number] [id number] 1959 Self-pay Social History Date Type Detail Facility Sex Assigned At [facility] Other Start: 07-23-2022 End: 09-02-2023 Tobacco smoking status Ex-smoker (finding) [facility] Tobacco smoking status Smokeless tobacco user within last 30 days [facility] [place] Tobacco smoking status [facility] Tobacco smoking consumption unknown [facility] Start: 1990 Sex assigned at Not on file [facility] Functional Status Date Assessment Result Facility 09-02-2023 Functional Status N/A [facility] 07-23-2022 Functional Status N/A [facility] History of Present illness Narrative 07-12-2025 Jeny [...] nursing note reviewed. Exam conducted with a alliances consultant present. Vitals: There is no height or [...] Aniyah Jackson DO documented in this encounter [facility] Clinical Note 05-23-2022 Note Date & Type Note Facility 05-23-2022 Note OPERATIVE NOTE OPERATION DATE: 05/23/2022 PROCEDURE: LEEP Procedure. PREOPERATIVE DIAGNOSIS: Dysplasia. POSTOPERATIVE DIAGNOSIS: Dysplasia. ANESTHESIA: General. SURGEON: Aniyah Jackson D.O. CHAIR MENDER: None. SPECIMEN: Ectocervical tissue. FINDINGS: Cervical dysplasia [...] to Recovery Room in stable condition. [facility] Evaluation note 10-26-2021 Note Date & [...] Patient care instructions given in writting by [facility] document [facility] Other Evaluation + Plan note Note Date & Type Note Facility Evaluation + Plan note No data available for this section [facility] [place] Evaluation note Note Date & Type Note Facility Evaluation note Diagnosis Complex ovarian cyst Complex cyst of left ovary documented in this encounter [facility] Hospital Discharge instructions Note Date & Type Note Facility Hospital Discharge instructions No data available for this section [facility] [place] Progress note Note Date & Type Note [...] Personnel Name: Melanie Hooker MD Address: Address: [address] [place] [address] [place], [place] [address] Personnel Name: Melanie Hooker MD Address: Address: [address] [place] [address] [place] [address]- Personnel Name: Melanie Hooker MD Address: Address: [address] [place] [address] [place] [address]- INFORMATION SOURCE (unrecogn ized section and content) DATE CREATED AUTHOR 12/07/2022 [facility] DATE CREATED AUTHOR AUTHOR'S ORGANIZ ATION 10/04/2023 [facility] DATE CREATED AUTHOR AUTHOR'S ORGANIZ ATION 10/16/2023 [facility] DATE CREATED AUTHOR AUTHOR'S ORGANIZ ATION 07/13/2025 [facility] EPIC FOR RECORDS PERTAINING TO [...] BE BASED ON THE PRIMARY CLINICAL RECORDS. [facility] [employer] [facility]. provides no warranty or guarantee of the accuracy or completeness of information in this document.
== END 2025-08-08 10:04 | disposition home or self-care (01) ==
LOC: PST 10:04
PROVIDERS: PCP Family Medicine; Visit Provider Obstetrics & Gynecology
DX: Z01.818 Encounter for other preprocedural examination (principal); N83.299 Other ovarian cyst, unspecified side

== ENCOUNTER 2025-08-12 07:27 | Day surgery (SDC) | payer BC, SELFPAY ==
[2025-08-08 10:21] VITALS: BP 101/72; PULSE 69; TEMP 36.3; O2SAT 96; BMI 23.3
[2025-08-12] VITALS (17 sets, daily range): BP systolic 90–116; BP diastolic 56–75; PULSE 61–106; TEMP 36.3–36.4; O2SAT 96–100; BMI 23.4
--- OUTSIDE RECORDS SUMMARY | 2025-08-12 07:29 | XMS_ITS | CCD ---
Author Organization [facility] Care Team Providers Care Cover Mat Machine Operator Name Role Phone Claudia Johnson Unavailable Melanie [...] Care Unavailable RENETTA, DR DILL Admitting Unavailable HOY, DR NAVARRO Primary Care Unavailable RENETTA, DR DILL Consulting Unavailable RENETTA, DR DILL Attending Unavailable BECKMAN, NALLELY Consulting Unavailable HOY, DR NAVARRO Primary Care Unavailable RENETTA, DR DILL Attending Unavailable RENETTA, DR DILL Admitting Unavailable RENETTA, DR DILL Consulting Unavailable AGUBOSIM, CHARITY Consulting Unavailable ROBERTO SUTHERLAND Consulting Unavailable RENETTA, DR DILL Admitting Unavailable MORRO, DR NAVARRO Primary Care Unavailable RENETTA, DR DILL Consulting Unavailable RENETTA, DR DILL Attending Unavailable RENETTA, DR DILL Consulting Unavailable PASCUALY, DR NAVARRO Primary Care [...] e ANIYAH JACKSON Attending Unavailable Allergies Allergy ClassificationReported Allergen(s)Allergy TypeDate of OnsetReaction(s) Facility (1 source)No Known Medication Allergies; Translations: [No Known Medication Allergies]Propensity to adverse reactions (disorder)[facility] Repository Medications Current Medications MedicationDrug Class(es)DatesSig (Normalized)Sig (Original)sulfamethoxazole 800 mg / trimethoprim 160 mg oral tablet (1 source)Dihydrofolate Reductase Inhibitor Antibacterial, Sulfonamide AntimicrobialStart: 09-02-2023 End: 04-18-7210Cphjaha D.S. 800 mg-160 mg Tab 1 tab(s), Oral, BID for 5 day(s), 10 tab(s), Refill(s) 0, [facility], 172.7, cm, 09/02/23 14:11:00 EST, Height/Length Dosing, 62.7, kg, 09/02/23 14:11:00 EST, Weight Dosing Start Date: 09/02/23 Stop Date: 09/07/23 Status: Ordered Problems Active Problems Problem ClassificationProblemDateDocumented DateEpisodic/ChronicAnxiety disorders (4 sources)Anxiety; Translations: [Anxiety disorder, unspecified]Onset: 596295-99-0266NtbwmcpYpelv skin disorders (3 sources)Acne -93-9902LptwssueNwlpp skin disorders (2 sources)Epidermoid cyst; Translations: [Epidermal cyst]Onset: 09-02-2023 EpisodicOther skin disorders (2 sources)Epidermoid cyst of qbcy20-46-5485IxqfdnjySuely skin disorders (2 sources)Epidermoid cyst of skin of reoi44-08-9088HimruhwpBdxarwv cyst (5 sources)Unspecified ovarian cyst, left side; Translations: [Complex ovarian cyst]Onset: 240420-92-8599PvokqnjzKthtflnq codes; unclassified (3 sources)Sryajkvc60-36-6467AltrjmgySnfjyqudm-vpzvgou disorders (1 source)Nicotine dependence, other tobacco product, uncomplicated; Translations: [NICOTINE DEPEND OTH TOB PROD UNCOMP]Onset: 41-10-2009Bilgobj Unclassified (3 sources)Body mass index 20-24 - -64-8987Zskgitcujepc (1 source)CONTACT W/AND (SUSP) EXPOS COVID-19; Translations: [CONTACT W/AND (SUSP) EXPOS COVID-19]Onset: 05-25-2022 Past or Other Problems Problem ClassificationProblemDateDocumented DateEpisodic/ChronicCancer of cervix (5 sources)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); Translations: [HGSIL ON CYTOLOGIC SMEAR OF CERVIX]Onset: 32-41-7578NravkwetDtkqlefxgbujl and screening for infectious disease (2 sources)Contact with and (suspected) exposure to other viral communicable diseases; Translations: [Encounter for screening for human papillomavirus (HPV)] Onset: 10-26-2021 Resolved: 30-43-1328DbfvsrnwDlhni aftercare (5 sources)Encounter for follow-up examination after completed treatment for conditions other than malignant neoplasm; Translations: [ENC F/U EX AFTR CMPL TX NOT MAL HERMES]Onset: 43-39-0345PabibdjvXfmdi screening for suspected conditions (not mental disorders or infectious disease) (4 sources)Encounter for screening for malignant neoplasm of cervix; Translations: [ENC SCREENING MALIG NEOPLASM CERV]Onset: 02-06-3840IuajdhegLdtz and subcutaneous tissue infections (4 sources)Cellulitis, unspecified; Translations: [CELLULITIS UNSPECIFIED]Onset: 46-80-1712DqyaepihKsbad infection (1 source)COVID-19Onset: 10-26-2021 Resolved: 10-26-2021 Results Test NameValueInterpretationReference RangeFacilityALL CEAon 38-84-8761CIZ<0.6 0.0 - 4.7 ng/mLNOMS HealthcareComment on above:Nonsmokers <3.9 Smokers <5.6 [facility] Electrochemiluminescence Immunoassay (ECLIA) Values obtained with different assay methods or kits cannot be used interchangeably. Results cannot be interpreted as absolute evidence of the presence or absence of malignant disease. Performed at: [address] [id number] Vacuum Drum Drier Operator: Ector Rowland PhD, Phone: [phone] [facility] HealthcareAmbulatory Visit Summaryon [id number] Visit Summary BJORN GRUBBS :1990 Visit Date:10/07/2023 [...] you for choosing us for your care. [facility] B[facility]ORN GRUB[facility] :1990 Visit Date:10/07/2023 Ambulatory Visit Instructions Your Care Team Attending Physician Kang ARRINGTON MD, Arline Craft Primary Care Physician - [place] [...] you for choosing us for your care. [facility] Office/Clinic Noteon [id number] Surgery Office/Clinic NoteChief Complaint post operative follow up HPI Staff 13 day post operative follow up post excisional biopsy posterior neck cyst. Denies discomfort, bleeding or drainage. Sutures intact. History of Present Illness 13 days s/p excisional biopsy inflamed epidermal cyst posterior neck; doing well, no drainage, someitching. pathology consistent with epidermal cyst. Review of Systems ROS - Provider Constitutional: no fever, no sweats, no weight loss. Eyes: no glasses, no blurred vision, no visual loss. ENMT: no dentures, no hoarseness, no swallowing difficulties, no hearing loss, no ear infection(s),no nose bleeds. Cardiovascular: normal blood pressure, no [...] virus vaccine, inactivated - Not Given Patient RefusesNormalPremier Health Miami Valley HospitalComment on above:Result Comment: Electronically Signed By: MURPHY KOEHLER, Arline Joseph\Date and Time Signed: 10/07/23 15:10 ESTPathology Noteon [id number] [id number]#1.00TIFFNormal [facility] HospitalOperative Reporton [id number] Report [id number]#1.00TIFFNoXena [facility] Medical CenterURGICAL PATH REPORTon [id number] PATH REPORTSProMedica Bay Park Hospital Department of Pathology [address] [place], [place] [address] [phone] Name: BJORN GRUBBS : 1990 [facility] [id number] Number: Gender [facility] Centerrodriguez SOU[place] ELGINDerek CENTERBROOK : n: Admit 33 years Attending ARLINE ARRINGTON Age: Provider: Ordering ARLINE ARRINGTON Provider: Consulti Surgical Pathology Report ng: ACCESSION: COLLECTED DATE/TIME: RECEIVED DATE/TIME: PATHOLOGIST: [id number] 09/24/2023 12:01 DOMENIC 09/25/2023 13:27 DOMENIC FALCON MD, MATI Final Diagnosis Report for [place] EPIDERMAL CYST, POSTERIOR NECK; EXCISION: - BENIGN SKIN WITH CHRONIC INFLAMMATION, GIANT CELLS AND FOCAL CHANGES SUGGESTIVE OF INFLAMED EPIDERMAL INCLUSION CYST. MATI FALCON PATHOLOGIST (Electronic Signature) Date Verified 09/26/2023 LL Clinical Data PRE-OP DIAGNOSIS: Not specified POST-OP DIAGNOSIS: Epidermal cyst PROCEDURES: Excision of epidermal cyst SPECIMEN: Epidermal cyst, posterior neck VISIT #[id number] / Surgical outpatient Gross Description Labeled epidermal cyst, posterior neck. Received in formalin are two ovoid segments of castro pink soft tissue. These measure in aggregate 1.4 x 0.8 x 0.5 cm. The larger segment is bisected transversely. The specimen is entirely submitted in one cassette. MP/tahir 09/25/2023 Tissue pathology report for: [facility], [address] [place] [address]; ____ Print 09/26/2023 16:04 EST Number: Date/Time: [facility] Department of Pathology [address] [place] [phone] Name: BJORN GRUBBS : 1990 [facility] [id number] Number: Gender Female Locatio MEGHNA BIGGSUE : n: Admit 33 years Attending ARLINE ARRINGTON Age: Provider: Ordering ARLINE ARRINGTON Provider: Consulti Surgical Pathology Report ng: ACCESSION: COLLECTED DATE/TIME: RECEIVED DATE/TIME: PATHOLOGIST: [id number] 09/24/2023 12:01 EST 09/25/2023 13:27 EST TERRIE KOEHLER, [facility] Gross Description PATHOLOGY SERVICES PROVIDED BY [employer] (CLIA #[id number]) in cooperation with [facility] at [address] [place] [address] (CLIA #[id number]) Microscopic Diagnosis The final diagnosis is based on a microscopic exam of congressional representative sections. Codes CPT CODE: 85554 ____ Print 09/26/2023 16:04 EST Number: Date/Time: HospitalComment on above:Performed By: #### [id number] #### [facility] Services [address] [place], [place] [id number] Creel Cleaner: JULIA Bassettonsent for Procedure/Surgery [id number] for Procedure/Surgery [id number]#1.00[facility] Medical CenterInsurance Correspondenceon 95-31-4244Caoffavaw Correspondence [id number]#1.00[facility] CenterGeneral Surgery Office/Clinic Noteon [id number] Surgery Office/Clinic NoteChief Complaint re-evaluate cysts HPI Staff Presents to re-evaluate left posterior neck and upper back cysts x 2. Last evaluation 07/2022; excision planned but not scheduled. Reports back cysts are unchanged. Over the past 3-4 weeks, neck cysthas been increasing in soreness and size. Denies [...] swallowing difficulties, no hearing loss, no ear infection(s),no nose bleeds. Cardiovascular: normal blood pressure, no [...] person, judgement normal, affect appropriate for age, insightintact, no focal deficits. Tests: , review of old records completed , Discussed surgical options, risks, and possible complications with patient. Assessment/Plan 1. Epidermal cyst of neck (L72.0: Epidermal cyst) inflamed, treat with course of antibiotics; plan excisional biopsy under local anesthesia at [facility], informed consent obtained. Ordered: sulfamethoxazole-trimethoprim, 1 tab(s), Oral, BID for 5 day(s), 10 tab(s), Refill(s) 0, [facility] #72, 172.7, cm, 09/02/23 14:11:00 EST, Height/Length [...] virus vaccine, inactivated - Not Given Patient RefusesNormalPremier Health Miami Valley HospitalComment on above:Result Comment: Electronically Signed By: MURPHY KOEHLER, Arline Joseph\Date and Time Signed: 09/02/23 19:23 ESTCBC AUTO DIFFon [id number] #0.0 103/ulNormal0.0-0.1Tuscarawas HospitalComment on above: Performed By: #### CBC #### [facility] [address] [place] [address] Dr. Ellie Welshsophils/100 WBC (Bld)0.5 %Normal0.2-2.0[facility] Comment on above:Performed By: #### CBC #### [facility] [address] [address] [address] Ellie Jackson #0.1 103/ulNormal0.0-0.7The [facility] HospitalComment on above: Performed By: #### CBC #### [facility] [address] [place] [address] Dr. Ellie Quesadaosinophils/100 WBC (Bld)1.7 %Normal0.9-7.0[facility] Comment on above:Performed By: #### CBC #### [facility] [address] [place] [address] Dr. Ellie Quesadarythrocyte distribution width (RBC) [Ratio]11.8 %Jowzls31.0-15.0 [facility] HospitalComment on above:Performed By: #### CBC #### [facility] [address] [place] [address] Dr. Ellie HaganHematocrit (Bld) [Volume fraction]36.8 %Igmjmh94.0-48.0T[facility]carawas HospitalComment on above:Performed By: #### CBC #### [facility] [address] [place] [address] Dr. Ellie HaganHemoglobin (Bld) [Mass/Vol]12.8 g/vPMjukpf68.0-16.0The [facility] HospitalComment on above:Performed By: #### CBC #### [facility] [address] [place] [address] Dr. Ellie Lopez #0.10 10e3/ulCritically high0.00-0.03The [facility] Comment on above:Performed By: #### CBC #### [facility] [address] [place] [address] Dr. Ellie Lopez %1.3 %Critically high0.0-0.5The [facility] HospitalComment on above:Performed By: #### CBC #### [facility] [address] [place] [address] Dr. Ellie Dorantes #2.1 103/ulNormal1.2-3.8The [facility] HospitalComment on above:Performed By: #### CBC #### [facility] [address] [place] [address] Dr. Ellie Byershocytes/100 WBC (Bld)28.5 %Ywqwei85.5-60.0The [facility] HospitalComment on above:Performed By: #### CBC #### [facility] [address] [place] [address] Dr. Ellie RojasUAL DIFF REQNONormalThe [facility] HospitalComment on above: Performed By: #### CBC #### [facility] [address] [place] [address] Dr. Ellie Powers (RBC) [Entitic mass]30.8 klHxjohv77.7-34.0The [facility] HospitalComment on above:Performed By: #### CBC #### [facility] [address] [place] [address] Dr. Ellie Powers (RBC) [Mass/Vol]34.8 g/yAMstpez03.9-35.2The [facility] HospitalComment on above:Performed By: #### CBC #### [facility] [address] [place] [address] Dr. Ellie PowersV (RBC) [Entitic vol]88.5 rWQzyqjk72.0-99.0The [facility] HospitalComment on above:Performed By: #### CBC #### [facility] [address] [place] [address] Dr. Ellie Mistry #0.7 103/ulNormal0.3-0.8The [facility] HospitalComment on above:Performed By: #### CBC #### [facility] [address] [place] [address] Dr. Ellie Cramerocytes/100 WBC (Bld)9.6 %Normal1.7-12.0The [facility] Comment on above:Performed By: #### CBC #### [facility] [address] [place] [address] Dr. Ellie Driver #4.4 103/ulNormal1.4-6.5The [facility] HospitalComment on above:Performed By: #### CBC #### [facility] [address] [place] [address] Dr. Ellie Magallonutrophils/100 WBC (Bld)58.4 %Psdglu78.0-75.0The [facility] HospitalComment on above:Performed By: #### CBC #### [facility] [address] [place] [address] Dr. Ellie Spauldinglet mean volume (Bld) [Entitic vol]10.1 fLNormal9.5-13.5The [facility] HospitalComment on above:Performed By: #### CBC #### [facility] [address] [place] [address] Dr. Ellie HaganPLT232 103/zbPbdzln662-691Wpf [facility] HospitalComment on above: Performed By: #### CBC #### [facility] [address] [place] [address] Dr. Ellie HaganRBC4.16 106/ulCritically low4.20-5.40The [facility] HospitalComment on above:Performed By: #### CBC #### [facility] [address] [place] [address] Dr. Ellie HaganWBC7.5 103/ulNormal4.0-11.0The [facility] HospitalComment on above: Performed By: #### CBC #### [facility] [address] [place] [address] Dr. Ellie Plaza EXT NON VASC LIMITED LTon 64-27-8126KM EXT NON VASC LIMITED LT EXAMINATION: US EXT NON VASC LIMITED LT HISTORY: Cellulitis COMPARISON: No relevant comparison available. FINDINGS: Ultrasound of the left dorsal wrist in the area of redness demonstrates normal skin, subcutaneous fat and muscle. Some vessels are observed which demonstrate normal compressibility. IMPRESSION: Normal ultrasound. No focal abnormality Electronically authenticated by: ASHLEY GROSS Date: 2022-05-29 16:[address] [place], [place] [address]HCG-BETA SUBUNIT QUANTon 99-10-9531vZN,Beta Subunit,Qnt,Serum<[address] [facility] HospitalComment on above:Result Comment: Female (Non- ) 0 - 5 (Postmenopausal) 0 - 8 . Female () Weeks of Gestation 3 6 - 71 4 10 - 750 5 217 - 7138 6 158 - 57169 7 2549 -468246 8 86285 -303466 9 679271 -649595 10 23958 -265267 12 39066 -290785 14 62101 - 26280 15 35647 - 84722 16 5812 - 80689 17 8962 - 53656 18 6964 - 51797 [place] ECLIA methodologyPerformed By: #### HCGSUB #### [facility] [address] [place] [address] Dr. Ellie HaganCBC AUTO DIFFon [id number] #0.0 103/ulNormal0.0-0.1[facility]caraw[facility] HospitalComment on above:Performed By: #### CBC #### [facility] [address] [place] [address] Dr. Ellie HaganBasophils/100 WBC (Bld)0.7 %Normal0.2-2.0[facility] Comment on above:Performed By: #### CBC #### [facility] [address] [place] [address] Dr. Ellie Jackson #0.1 103/ulNormal0.0-0.7The [facility] HospitalComment on above: Performed By: #### CBC #### [facility] [address] [address] [address] Ellie Quesadaosinophils/100 WBC (Bld)1.4 %Normal0.9-7.0The [facility] Comment on above:Performed By: #### CBC #### [facility] [address] [address] [address] Ellie Quesadarythrocyte distribution width (RBC) [Ratio]11.9 %Wczqai78.0-15.[address] [facility] HospitalComment on above:Performed By: #### CBC #### [facility] [address] [place] [address] Dr. Ellie HaganHematocrit (Bld) [Volume fraction]36.3 %Rrkqjj00.0-48.0The [facility] HospitalComment on above:Performed By: #### CBC #### [facility] [address] [place] [address] Dr. Ellie HaganHemoglobin (Bld) [Mass/Vol]12.7 g/cSHoadoq96.0-16.0The [facility] HospitalComment on above:Performed By: #### CBC #### [facility] [address] [place] [address] Dr. Ellie Lopez #0.07 10e3/ulCritically high0.00-0.03The [facility] Comment on above:Performed By: #### CBC #### [facility] [address] [place] [address] Dr. Ellie Lopez %1.3 %Critically high0.0-0.5The [facility] HospitalComment on above:Performed By: #### CBC #### [facility] [address] [place] [address] Dr. Ellie Dorantes #1.8 103/ulNormal1.2-3.8The [facility] HospitalComment on above:Performed By: #### CBC #### [facility] [address] [place] [address] Dr. Ellie Patelmphocytes/100 WBC (Bld)32.0 %Avntze57.5-60.0The [facility] HospitalComment on above:Performed By: #### CBC #### [facility] [address] [place] [address] Dr. Ellie RojasUAL DIFF REQNONormalThe [facility] HospitalComment on above: Performed By: #### CBC #### [facility] [address] [place] [address] Dr. Ellie Powers (RBC) [Entitic mass]31.3 lbUsarrb80.7-34.0The [facility] HospitalComment on above:Performed By: #### CBC #### [facility] [address] [place] [address] Dr. Ellie Powers (RBC) [Mass/Vol]35.0 g/eVYihtza18.9-35.2The [facility] HospitalComment on above:Performed By: #### CBC #### [facility] [address] [place] [address] Dr. Ellie Powers (RBC) [Entitic vol]89.4 lXYatgxq15.0-99.0The [facility] HospitalComment on above:Performed By: #### CBC #### [facility] [address] [place] [address] Dr. Ellie Mistry #0.5 103/ulNormal0.3-0.8The [facility] HospitalComment on above:Performed By: #### CBC #### [facility] [address] [place] [address] Dr. Ellie Cramerocytes/100 WBC (Bld)8.9 %Normal1.7-12.0The [facility] Comment on above:Performed By: #### CBC #### [facility] [address] [place] [address] Dr. Ellie Driver #3.1 103/ulNormal1.4-6.5The [facility] HospitalComment on above:Performed By: #### CBC #### [facility] [address] [place] [address] Dr. Ellie HaganNeutrophils/100 WBC (Bld)55.7 %Oonbol82.0-75.0The [facility] HospitalComment on above:Performed By: #### CBC #### [facility] [address] [place] [address] Dr. Ellie HaganPlatelet mean volume (Bld) [Entitic vol]10.4 fLNormal9.5-13.5The [facility] HospitalComment on above:Performed By: #### CBC #### [facility] [address] [place] [address] Dr. Ellie HaganPLT212 103/qfLcryqq064-925Pgo [facility] HospitalComment on above: Performed By: #### CBC #### [facility] [address] [place] [address] Dr. Ellie HaganRBC4.06 106/ulCritically low4.20-5.40The [facility] HospitalComment on above:Performed By: #### CBC #### [facility] [address] [place] [address] Dr. Ellie HaganWBC5.6 103/ulNormal4.0-11.0The [facility] HospitalComment on above: Performed By: #### CBC #### [facility] [address] [place] [address] Dr. Ellie HaganCovid-19 PCR ([facility])on 98-71-1769MAGC-CoV-2 (COVID-19) RNA SARA+probe Ql (Unsp spec)Not detectedNormalNOT DETECTEDThe [facility] Comment on above:Result Comment: This test is not yet approved or cleared by the [place] FDA. When there are no FDA-approved or cleared tests available, and other criteria are met, FDA can make tests available under an emergency access mechanism called an Emergency Use Authorization (EUA). The EUA for this test is supported by the [place] of Health and Human Service's (HHS's) declaration that circumstances exist to justify the emergency use of in vitro diagnostics for the detection and/or diagnosis of the virus that causes COVID- 19. This EUA will remain in effect (meaning [...] of clinical signs and symptoms consistent with SARS-CoV-2.Performed By: #### CVDTBH #### [facility] [address] [place] [address] Dr. Ellie Krishnan ACOG PANEL 2: 30 to 65on 04-25-2022..NormalThe [facility] HospitalComment on above:Result Comment: Performed at: WBPerformed By: #### [id number] #### [facility] [address] [place] [address] Dr. Ellie Olguin Gdln ACOG Bskfdes85-71OnoezaYwbKettering Health SpringfieldComment on above:Performed By: #### [id number] #### [facility] [address] [place] [address] Dr. Ellie HaganDIAGNOSIS:CommentAbSumma Health Wadsworth - Rittman Medical CenterComment on above: Result Comment: EPITHELIAL CELL ABNORMALITY. HIGH-GRADE SQUAMOUS INTRAEPITHELIAL LESION (HSIL). Performed at: WBPerformed By: #### [id number] #### [address] [address] Dr[address] Argueta ChangElectronically signed by:[facility] Comment on above:Result Comment: Chastity Hernandez MD, Pathologist Performed at: WBPerformed By: #### [id number] #### [facility] [address] [place] [address] Dr. Ellie HaganHPV AptimaPositiveAbnormalNegativeTuscarawas HospitalComment on above:Result Comment: This nucleic acid amplification test detects fourteen high-risk HPV types (16,18,31,33,35,39,45,51,52,56,58,59,66,68) without differentiation. Performed at: =GPerformed By: #### [id number] #### [facility] [address] [place] [address] Dr. Ellie HaganMethodology:CommentOhioHealth Marion General Hospital on above: Result Comment: This liquid based ThinPrep(R) pap test was screened with the use of an image guided system. Performed at: WBPerformed By: #### [id number] #### [facility] [address] [place] [address] Dr. Ellie HaganNote:CommentOhioHealth Marion General Hospital on above:Result Comment: The Pap smear is a screening test designed to aid in the detection of premalignant and malignant conditions of the uterine cervix. It is not a diagnostic procedure and should not be used as the sole means of detecting cervical cancer. Both false-positive and false-negative reports do occur. . Performed at: WBPerformed By: #### [id number] #### [facility] [address] [place] [address] Dr. Ellie HaganPathologist Provided QWR46KjudbjwNrajkxLnnWooster Community Hospital Comment on above:Result Comment: R87.613 Performed at: WBPerformed By: #### [id number] #### [facility] [address] [place] [address] Dr. Ellie HaganPerformed by:CommentOhioHealth Marion General Hospital on above: Result Comment: Brad Patel, Window Caser (ASCP) Performed at: WBPerformed By: #### [id number] #### [facility] [address] [place] [address] Dr. Ellie HaganRecommendation:CommentAbCleveland Clinic Hillcrest Hospital on above:Result Comment: Suggest colposcopy and biopsy if indicated. Performed at: WBPerformed By: #### [id number] #### [facility] [address] [place] [address] Dr. Ellie HaganSpecimen adequacy:CommentOhioHealth Marion General Hospital on above:Result Comment: Satisfactory for evaluation. Endocervical and/or squamous metaplastic cells (endocervical component) are present. Performed at: WBPerformed By: #### [id number] #### [facility] [address] [place] [address] Dr. Ellie Grimm Quick Testingon 70-63-8646NnmttoMoggotxiHskut Lipperhey Other Vital Signs Date TimeVital SignValuePerforming ZamksphqpHqbskizv19-51-2732 13:42-0400Body fxqlro89.74 kgCorey Renetat DO Work Phone: [facility] HospitalBxvfdpxksm83-74-0493 13:42-0400Diastolic blood dkylsvvv52 mm[Hg]Aniyah Renetta DO Work Phone: [facility] HospitalPyvhxwjccd12-71-6288 13:42-0400Systolic blood nahpcmin505 mm[Hg]Aniyah Renetta DO Work Phone: [facility] HospitalHgwrjrubqf60-24-8706 14:04-0500Blood Pressure LocationMichael NILL [facility] Quxofrqg28-67-3619 14:04-0500Diastolic blood ysrrgaat30 mm[Hg]Arline NILL [facility] Surgery Epzowhgy47-31-2930 14:04-0500Heart rate 76 /minMichael NILL [facility] Rwdpfpsi15-53-7067 14:04-0500 Respiratory rate16 /minMichael NILL [facility] Ondwjmta91-26-8872 14:04-0500Systolic blood mm[Hg]Arline NILL [facility] Tjopzmub39-20-4792 15:23-0400Blood Pressure LocationMichael NILL [facility] Surgery Sgzpnikm03-66-5355 15:23-0400Diastolic blood bevtqeow05 mm[Hg]Arline NILL [facility] Surgery Ejdqgxoo14-83-9133 15:23-0400Heart rate 68 /minMichael NILL General Surgery Kmkeiuth52-28-2066 15:23-0400 Respiratory rate16 /minMichael NILL General Surgery Nuyqskws25-28-0758 15:23-0400Systolic blood rocaqhxf895 mm[Hg][facility]line [facility] Xwtnnlse71-43-6605 14:30-0500Body pissyu159.72 cmAmber Ginty Other [employer] Other 027243-60-9289 14:30-0500Body mass index (BMI) [Ratio] 20.52 kg/n1Canrz Ginty Other [employer] Other 01-07-2022 14:30-0500Body [degF]Claudia Ginty Other [employer] Other 01-07-2022 14:30-0500Body wfcnoq12.24 kgAmber Ginty Other [employer] Other 01-07-2022 14:30-0500Respiratory rate18 /minAmber Ginty Other [employer] Other 01-07-2022 14:30-4676GuE5% (BldA) [Mass fraction]99 % Claudia Ginty Other [employer] Other Encounters Encounter DateEncounter TypeCare ProviderFacilityStart: 07-12-2025 End: 98-08-7747Rwozem flowsheetCorey Renetta DO Work Phone: [facility] OBGYNStart: 07-12-2025 End: 83-33-5919Wyxtkw flowsheetCorey Renetta DO Work Phone: [facility] OBGYNStart: 07-12-2025 End: 84-03-1891Fytfvwpld Result EncounterCorey Renetta DO Work Phone: NOOC External Department UnsolicitedStart: 07-12-2025 End: 12-50-4570Vealxu outpatient visit 15 minutesCorey Renetta DO Work Phone: [facility] OBGYNComment on above:Complex ovarian cyst; Complex cyst of left ovaryStart: 07-12-2025 End: 26-64-0524jvuhclosyzFDFAI FAZIONot AvailableStart: 10-07-2023 End: 54-38-4816thsfsoxgrpRtdnaqj R NILLFacility: ueStart: 10-07-2023 End: 48-88-9970Wcrouaz encounter procedureMichael R NILL General Surgery Nill/Said Evan Start: 09-25-2023 End: 04-54-7202wnxywqllzfFCIOUUE R NILLFacility:BAYLStart: 09-24-2023 End: 04-74-5572ghwjixudioJKNHKFD R NILLFacility:[facility] ELGINLStart: 09-02-2023 End: 68-23-7849lyyrdincanAvckkdr R NILLFacility: ueStart: 09-02-2023 End: 68-61-6199Wzucahb encounter procedureMichael R NILL General Surgery Nill/Said Evan Start: 26-36-8120hsnrckpxrfDtkqmjk NILLFacility:[facility] HospitalueStart: 67-56-8054oggaclercfSR ASHLEY V WESTFacility:Q1Wwqza: 07-23-2022 End: 08-99-0827Ppvrocx encounter procedureMichael R NILL General Surgery Nill/Said Evan Start: 05-29-2022 End: 17-12-9283jekyrbnbfbHPATXY CRAMERFacility:E4Yjdff: 03-79-2902Jqugwwoxp for preprocedural laboratory examinationDR ANIYAH [place] HospitalStart: 05-23-2022 End: 56-87-2774exqzwymrpjCV MELANIE HOYFacility:U7Bckem: 05-21-2022 End: 82-74-4589hfetjqdvrxAX ANIYAH FAZIOFacility:Z4Momlo: 05-21-2022 End: 72-17-9296Tzdgocwqy for preprocedural laboratory examinationDR ANIYAH JACKSON Facility:K8Fbpuw: 04-19-2022 End: 67-79-7782cmthethqvuHB ANIYAH FAZIOFacility:O7Uxixt: 03-21-2022 End: 50-16-3410wiydyayvdvUQ ASHLEY [place] WESTFacility:X2Cfjgi: 10-26-2021 End: 77-40-3933mmgibjycnpBilna Ginty Other [place] Other Start: 41-57-4221Ixzkkm outpatient visit 15 minutes Claudia GintyFPG [facility] Procedures DateProcedureProcedure DetailPerforming ClinicianStart: 82-98-3116YRF CEACorey Renetta DO Work Phone: Start: 28-25-9400Yijqznib of cystMichael NILL Comment on above:posterior neckLoop electrosurgical excision procedureMichael NILL Removal of ovarian cystMichael NILL Plan of Treatment DateCare ActivityDetailAuthorStart: 08-25-2025 End: 43-37-2370Ndkwiys encounter sedfcdftm87/06/2025 10:30 AM EST Office Visit [facility] [address] [place] [id number] Stephanie Kahn PA [address] [place] [address] AMANDA GRAMAJOGYNStart: 07-12-2025 End: 66-80-9432UYR tumor markerAFP tumor marker Lab Routine Complex ovarian cyst Expected: 07/12/2025 (Approximate), Expires: 07/12/2026[facility] HealthcareComment on above:Expected: 07/12/2025 (Approximate), Expires: 07/12/2026Start: 07-12-2025 End: 10-53-6908WG 125CA 125 Lab Routine Complex ovarian cyst Expected: 07/12/2025 (Approximate), Expires: 07/12/2026[facility] HealthcareComment on above: Expected: 07/12/2025 (Approximate), Expires: 07/12/2026Start: 07-12-2025 End: 00-90-1081Dfvrxkdlrhpjdmlu Ag [Mass/volume] in Serum or PlasmaCEA Lab Routine Complex ovarian cyst Expected: 07/12/2025 (Approximate), Expires: 07/12/2026[facility] HealthcareComment on above:Expected: 07/12/2025 (Approximate), Expires: 07/12/2026Start: 07-12-2025 End: 93-15-0580QZJ, tumor markerHCG, tumor marker Lab Routine Complex ovarian cyst Expected: 07/12/2025 (Approximate), Expires: 07/12/2026[facility] Healthcare Comment on above:Expected: 07/12/2025 (Approximate), Expires: 07/12/2026Start: 07-12-2025 End: 35-62-6478Vjbzrni dehydrogenase, isoenzymesLactate dehydrogenase, isoenzymes Lab Routine Complex ovarian cyst Expected: 07/12/2025 (Approximate), Expires: 07/12/2026[facility] Work Phone: comment on above:Expected: 07/12/2025 (Approximate), Expires: 07/12/2026Start: 07-12-2025 End: 09-20-6099Msgkupp encounter zjhikczwc90/23/2025 1:20 PM EDT Office Visit AMANDA CHRISTIAN [address] [place] [address] [place] [address] Aniyah Jackson, DO [address] [place] [address] ArrivedNOMS Gordon OBGYNComment on above:Arrived Immunizations Immunization DateImmunizationNotesCare ProviderFacilityNEGATED: Highlighted row has not occurred!71-94-3768vbxntqvvm virus vaccine, unspecified formulation Arline ARRINGTON General Surgery [facility] Payers DatePayer CategoryPayerPolicy [id number] [place] Blue ShieldBS [id number] .1.341689.3.57[id number] .1.390610.3.579.[id number] .1.111579.3.579.2.24650-15-3592Jgkgrja9180979 .1.266805.3.579.[id number] .1.009851.3.57[id number] 2.16.840.1.439745.3.57[id number] 2.16.840.1.005071.3.57[id number] 2.16.840.1.785395.3.57[id number] 2..840.1.609411.3.579.[id number] 2..840.1.684603.3.57[id number] 2..840.1.532766.3.579.2.062236-11-1420Zkbz [place] Blue [id number] 2.0.5.651185.58007097-00-5818Rdcv-pay Social History DateTypeDetailFacilitySex Assigned At [facility] Li[facility] Other Start: 07-23-2022 End: 09-79-1168Eqpvmic smoking statusEx-smoker (finding)General Surgery [facility] Tobacco smoking statusSmokeless tobacco user within last 30 daysGeneral Surgery BellevueTobacco smoking status NHISTobacco smoking consumption unknownChristian HospitalStart: 15-07-5548Esu [facility] Functional Status IcbiFzvjvjuycbCsndbxOdxcunus59-38-6196Xrrwmxuxyd StatusN/AGeneral Surgery Bdghvspq95-64-8468Gnglukytnf StatusN/AGeneral Surgery [facility] History of Present illness Narrative 07-12-2025 Note Date & LcrcIuzjQrybrtgt59-14-4222 History of Present illness Narrative* Jeny Mas, GARRY - 07/12/2025 1:20 PM EDT Reason for Appointment: Patient ID: Bjorn Grubbs [...] nursing note reviewed. Exam conducted with a venetian blind tape cutter present. Vitals: There is no height or [...] of: Aniyah Jackson DO documented in this encounterChristian Hospital Clinical Note 05-23-2022 Note Date & VlhxJkafPsdoqskd93-87-6423 NoteOPERATIVE NOTE OPERATION DATE: 05/23/2022 PROCEDURE: LEEP Procedure. PREOPERATIVE DIAGNOSIS: Dysplasia. POSTOPERATIVE DIAGNOSIS: Dysplasia. ANESTHESIA: General. SURGEON: Aniyah Jackson D.O. TRAFFIC AGENT: None. SPECIMEN: Ectocervical tissue. FINDINGS: Cervical dysplasia [...] was taken to Recovery Room in stable condition.[facility] Evaluation note 10-26-2021 Note Date & BsnpUcomEkqduaeq90-03-9752 Evaluation note* Encounter Date Diagnosis Assessment Notes Treatment Notes Treatment Clinical Notes Oct, Contact with and (lehman spected) exposure to other viral communicable diseases (ICD-10 - Z20.828) Oct,2COVID-19 (ICD-10 - U07.1) Rapid COVID test performed in office today. Advised patient that test was positive.Instructed patient to isolate per CDC guidelines for [...] treatment plan. Patient left in stable condition Oct,therAdditional time spent conducting pre-visit phone call, screening for symptoms, instructions on social distancing, application and removal of PPE, and cleaning of examination room, equipment and supplies was preformed. Patient education given for testing methodology and results. Patient care instructions given in writting by [facility] Care At Home document [employer] Evaluation + Plan note Note Date & TypeNoteFacilityEvaluation + Plan note No data available for this section General Surgery Riskalyze Evaluation note Note Date & TypeNoteFacilityEvaluation note* Diagnosis Complex ovarian cyst Complex cyst of left ovary documented in this encounter [facility] Discharge instructions Note Date & TypeNoteFacilityHospital Discharge instructions No data available for this section General Surgery Riskalyze Progress note Note Date & TypeNoteFacilityProgress note No data available for this section General Surgery [facility] Summary Purpose Family History No Family History [...] FOR VISIT (unrecogniz ed section and content) ReasonCommentsFollow-up Patient Care team informatio n (unrecognized section and content) Personnel Name: Melanie Hooker MD Address: Address: [address] [place] [address] [place] [address]- Personnel Name: Melanie Hooker MD Address: Address: [address] [place] [address] [place] [address]- Personnel Name: Melanie Hooker MD Address: Address: [address] [place] [address] [place] [address]- INFORMATION SOURCE (unrecogn ized section and content) DATE CREATED AUTHOR 12/07/2022 [facility] DATE CREATED AUTHOR AUTHOR'S ORGANIZ ATION 10/04/2023 [facility] DATE CREATED AUTHOR AUTHOR'S ORGANIZ ATION 10/16/2023 [facility] DATE CREATED AUTHOR AUTHOR'S ORGANIZ ATION 07/13/2025 [facility] EPIC FOR RECORDS PERTAINING TO PATIENTS [...] BE BASED ON THE PRIMARY CLINICAL RECORDS. [facility]. provides no warranty or guarantee of the accuracy or completeness of information in this document.
--- OUTSIDE RECORDS SUMMARY | 2025-08-12 07:30 | XMS_ITS | Clinical Summary ---
Author Organization [facility] Address [address] [facility] [place] [address] Care Team Providers Care Chainstitch Elastic Attacher Name Role Phone Unavailable Primary Care Provider Unavailabl e Allergies No known active allergies Medications No known medications Encounters DateTypeDepartmentCare HiexRkamnnzbyya75/23/2025 1:20 PM EDTOffice Visit [facility]RIST[facility] [address] [place] [address] Grant Jackson DO Complex ovarian cyst; Complex cyst of left ovary5Clinisync Result Encounter [facility] External Department Unsolicited Grant Jackson, DO 5Bamboo flowsheet [facility] [address] [place] [address] Grant Jackson, DO 5Abstract [facility] [address] [place] [address] Grant Jackson, DO 07/06/2025bstract [facility] [address] [place] [address] Grant Jackson DO from Last 3 Months Social History Tobacco UseTypesPacks/DayYears UsedDateSmoking Tobacco: Never Assessed CommentsNoSex and Gender InformationValueDate RecordedSex Assigned at BirthNot on fileLegal PmjYezxhz87/15/2023 11:47 PM EDTGender IdentityNot on fileSexual OrientationNot on file Last Filed Vital Signs Vital SignReadingTime TakenCommentsBlood Bvbzunjh612/8209/ 1:42 PM EDT Pulse--Temperature--Respiratory Rate--Oxygen Saturation--Inhaled Oxygen Concentration--Fhecof97.7 kg (153 lb 12 oz)07/12/2025 1:42 PM EDTHeight--Body Mass Index-- Plan of Treatment DateTypeDepartmentCare Team (Latest Contact Info)Pkqmlqupsie35/06/2025 10:30 AM ESTOffice Visit [facility] OBGEMA [address] [place] [address] Stephanie Kahn PA [address] [place] [address] Procedures Procedure NamePriorityDate/TimeAssociated DiagnosisCommentsALL MISCELLANEOUS MSIQGininpb40/23/2025 3:27 PM EDT [facility] HCG,BETA-QUANT,TUMOR XQOJAXKppkjcu73/23/2025 3:27 PM EDT ALL [place] 283Ujumwgb99/23/2025 3:27 PM EDT ELCH AFP TUMOR UYFWDXLxmvsuk27/23/2025 3:27 PM EDT ALL VBONpstgiq44/23/2025 3:27 PM EDT from Last 3 Months Results * ELCH AFP TUMOR MARKER (07/12/2025 3:27 PM EDT)ComponentValueRef RangeTest MethodAnalysis TimePerformed AtPathologist SignatureAFP, SERUM, TUMOR MARKER <1.80.0 - 6.4 ng/mLTBHComment: [employer] Electrochemiluminescence Immunoassay (ECLIA) Values obtained with different assay methods or kits cannot be used interchangeably. ??Results cannot be interpreted as absolute evidence of the presence or absence of malignant disease. This test is not interpretable in females. Specimen (Source)Anatomical Location / LateralityCollection Method / Volume Collection TimeReceived Time07/12/2025 3:27 PM EDT07/12/2025 3:32 PM EDT Narrative CLINISYNC - 07/13/2025 11:09 AM EDT Authorizing ProviderResult TypeResult StatusCorey Renetta DOCLINISYNCFinal Result Performing OrganizationAddressCity/State/ZIP CodePhone Number [facility] * [facility] HCG,BETA-QUANT,TUMOR MARKER (07/12/2025 3:27 PM EDT)ComponentValueRef Range Test MethodAnalysis TimePerformed AtPathologist SignatureHCG TUMOR MARKER<1. mIU/mLTBHComment: ? Female (Non-) ?0 - ? 5 ?(Postmenopausal) ??0 - ? 8 [employer] Electrochemiluminescence Immunoassay (ECLIA) The [employer] HCG + beta assay recognizes the holo-hormone, human chorionic gonadotropin (hCG), nicked forms of hCG, the beta-core fragment and the free beta-subunit in human serum and plasma. Results obtained with different test methods or kits cannot used interchangeably. This assay is intended for the early detection of . The result should not be used for treatment or for diagnostic purposes without confirmation of the diagnosis by another medically established diagnostic product or procedure. This test was developed and its performance characteristics determined by [employer] ([employer]). It has not been cleared or approved by the Food and Drug Administration for use as a tumor marker. This test is not interpretable as a tumor marker in females. Performed at: ??[address] ??[id number] Youth Agent: Ector Rowland PhD, Phone: ??[phone] Specimen (Source)Anatomical Location / LateralityCollection Method / Volume Collection TimeReceived Time07/12/2025 3:27 PM EDT07/12/2025 3:32 PM EDT Narrative CLINISYNC - 07/13/2025 11:09 AM EDT Authorizing ProviderResult TypeResult StatusCorey Renetta DOCLINISYNCFinal Result Performing OrganizationAddressCity/State/ZIP CodePhone Number [facility] * ALL MISCELLANEOUS TEST (07/12/2025 3:27 PM EDT)ComponentValueRef RangeTest MethodAnalysis TimePerformed AtPathologist SignatureMISCELLANEOUS TESTCOMMENT. TBHComment: Test Ordered: [id number] LD Isoenzymes LDH ?126 ?IU/L ? CB ?? Reference Range: 119-226 (LD) Fraction 1 ?25 ? % ?BN ?? Reference Range: 17-32 (LD) Fraction 2 ?33 ? % ?BN ?? Reference Range: 25-40 (LD) Fraction 3 ?22 ? % ?BN ?? Reference Range: 17-27 (LD) Fraction 4 ?10 ? % ?BN ?? Reference Range: 5-13 (LD) Fraction 5 ?10 ? % ?BN ?? Reference Range: 4-20 Performed at: ??CB - [facility] [address] [place], [place] ??[id number] Youth Agent: Ector Rowland PhD, Phone: ??[phone] Performed at: ??BN - [facility] [address] ??[id number] Youth Agent: Cristiano Morgan MD, Phone: ??[phone] Specimen (Source)Anatomical Location / LateralityCollection Method / Volume Collection TimeReceived Time07/12/2025 3:27 PM EDT07/12/2025 3:32 PM EDT Narrative CLINISYNC - 07/15/2025 5:10 AM EDT [id number] Lactate Dehydrogenase (LD) Isoenzymes Authorizing ProviderResult TypeResult StatusCorey Renetta DOCLINISYNCFinal Result Performing OrganizationAddWashington Health Systemty/State/ZIP CodePhone Number [facility] * ALL CEA (07/12/2025 3:27 PM EDT)ComponentValueRef RangeTest MethodAnalysis TimePerformed AtPathologist SignatureCEA<0.60.0 - 4.7 ng/mLTBHComment: Nonsmokers <3.9 Smokers <5.6 [facility] [employer] Electrochemiluminescence Immunoassay (ECLIA) Values obtained with different assay methods or kits cannot be used interchangeably. ??Results cannot be interpreted as absolute evidence of the presence or absence of malignant disease. Performed at: ??[facility] [employer] ??[id number] Youth Agent: Ector Rowland PhD, Phone: ??[phone] Specimen (Source)Anatomical Location / LateralityCollection Method / Volume Collection TimeReceived Time07/12/2025 3:27 PM EDT07/12/2025 3:32 PM EDT Narrative CLINISYVA - 07/13/2025 8:09 AM EDT Authorizing ProviderResult TypeResult StatusCorey Renetta DOCLINISYNCFinal Result Performing OrganizationAddWashington Health Systemty/[facility] CodePhone Number [facility] * ALL [place] 125 (07/12/2025 3:27 PM EDT)ComponentValueRef RangeTest MethodAnalysis TimePerformed AtPathologist SignatureCANCER ANTIGEN ([place]) 57160.50.0 - 38.1 U/mLTBHComment: [facility] Electrochemiluminescence Immunoassay (ECLIA) Values obtained with different assay methods or kits cannot be used interchangeably. ??Results cannot be interpreted as absolute evidence of the presence or absence of malignant disease. Performed at: ??[facility] [employer] ??[id number] Youth Agent: Ector Rowland PhD, Phone: ??[phone] Specimen (Source)Anatomical Location / LateralityCollection Method / Volume Collection TimeReceived Time09/ 3:27 PM EDT07/12/2025 3:32 PM EDT Narrative CLINISYNC - 07/13/2025 11:09 AM EDT Authorizing ProviderResult TypeResult StatusCorey Renetta DOCLINISYNCFinal Result Performing OrganizationAddressCity/State/ZIP CodePhone Number CLINISYNC [facility] from Last 3 Months Insurance
[2025-08-12 07:45] LABS: Hematocrit 38.2 % (36.0-48.0); Hemoglobin 13.3 g/dL (12.0-16.0); Immature Granulocytes Abs Auto 0.09 10^3/uL (0.00-0.03); Immature Granulocytes Pct Auto 1.2 % (0.0-0.5); Lymphocytes Absolute Auto 3.0 10^3/uL (1.2-3.8); Mean Corpuscular HGB Conc 34.8 g/dL (29.9-35.2); Mean Corpuscular Hemoglobin 31.0 pg (26.7-34.0); Mean Corpuscular Volume 89.0 fL (81.0-99.0); Platelet Count 222 10^3/uL (150-450); Red Blood Count 4.29 10^6/uL (4.20-5.40); White Blood Count 7.4 10^3/uL (4.0-11.0)
--- NOTE | 2025-08-12 11:17 | P.ON_ITS ---
Brief Operative Note Date of procedure: 08/12/25 Pre-op diagnosis general: pelvic pain, large lt ovarian cyst Post-op diagnosis: other (16cm lt ovarian cyst) Procedure: NAME OF PROCEDURE: robotic assisted laparoscopic lt salpingoopherectomy PROCEDURE: The patient was taken back to the Operating Room where she was given general anesthesia without difficulty. She was then prepped and draped in the normal sterile fashion after being placed in a dorsal lithotomy position. A wet sponge stick was placed into the patient's vagina. Attention was then turned to the patient's abdomen, where a scalpel was used to make a small infraumbilical incision. The S retractors were then used to dissect the underlying layers until the fascia could be seen. The fascia was then grasped with [place] clamps and tented up. A knife was then used to make a small incision to the fascia. The muscle was identified, at that time two sutures of #0 Vicryl on a GI needle was then used and placed through the fascia. the peritoneum was then identified and entered bluntly. The 10-4 Radha was then placed into the patient's abdomen. This was confirmed with direct visualization of the bowel, using the laparoscope. The patient's abdomen was then insufflated using approximately 4 liters of CO2 gas. Survey of the patient's abdomen demonstrated ovaries were normal in appearance as well as both tubes and uterus. A second and third rt and lt lateral robotic ports which were 8 mm in size, was then placed after the skin incision was made under direct visualization . the robotic arms were engaged. The patient's tube and ovary on the patient's lt side was identified and tented up using a grasper, the vessel sealer was used to come across the infundibular pelvic ligament along with the mesosalpingx from the fimbriated end to the insertion site at the uterus, the tube and ovary was then amputated and removed in its entirety after the fluid was drained in allow for removal of tube and ovary after being placed in the endocatch the tubes and ovary was removed from the patients abdomen. Excellent hemostasis was noted. The lateral ports were then moved under direct visualization with excellent hemostasis. All instruments were removed from the patient's abdomen. The fascia was closed using the #0 Vicryl on GI needle. The skin was closed using 4-0 Vicryl subcuticularly. All instruments were removed from the patient's vagina as well. The patient was taken out of the dorsal lithotomy position and placed in the supine position and taken to recovery in stable condition. Sponge, lap and needle counts were correct x2. Anesthesia: PABLO Surgeon: Grant Jackson Scientific Informatics Leader: Thalia Thompson Estimated blood loss (mL): 5 Pathology: other (lt tube and ovary) Condition: stable Disposition: PACU Urinary Catheter Management Urinary Catheter Management Urethral: Cath placed during this visit: no
[2025-08-12] MEDS: HYDROMORPHONE HCL 0.5 MG/0.5 ML SYRINGE IV (11:59)
[2025-08-12] MEDS: HYDROCODONE/ACET 5-325 MG TABLET 1 TAB PO (13:35)
--- NOTE | 2025-08-12 14:41 | PC.NURSE ---
1420: pt ambulates to bathroom with SBA,pt voids without difficulty. urine clear,yellow.
== END 2025-08-12 14:30 | disposition home or self-care (01) ==
PROVIDERS: PCP Family Medicine; Visit Provider Obstetrics & Gynecology
PROC: (CPT 840; principal; 2025-08-12 08:55)
DX: D27.1 Benign neoplasm of left ovary (principal); Z87.891 Personal history of nicotine dependence; F41.9 Anxiety disorder, unspecified; R10.30 Lower abdominal pain, unspecified
CPT/HCPCS: 58661; 36415; 84702; 85025; 88305; J0185; J1100; J1171; J1453; J1885; J2250; J2405; J2704; J3010